=== PATIENT | female | born 1930 | race Caucasian/White ===

== ENCOUNTER 2017-12-01 11:31 | Inpatient (IN) | payer MEDICARE ==
[~2017-12-01] VITALS: Ht 162.6 cm; Wt 49.9 kg
[~2017-12-01 11:31] MED LIST: BETIMOL5 M1 OU; CEFTIN250 MG/5 M PO; FLAGYL250 MG PO; HYDROCHLOROTHIA50 MG PO; KLOR-CON M2020 MEQ PO; MAXZIDE 37.5 M1 EACH PO; NEXIUM40 MG PO; ZETIA10 MG PO
--- OUTSIDE RECORDS SUMMARY | 2017-12-01 11:32 | XMS REPORT ---
Author [facility] Address Unknown Phone Unavailable Care Team Providers Care Vibration Engineer Name Role Phone TAWANNA HDZ Unavailable Unavailable ARIANA CABRERA Unavailable Unavailable Problems This patient has no known problems. Allergies, Adverse Reactions, Alerts This patient has no known allergies or adverse reactions. Medications This patient has no known medications. Results Test Description Test Time Test Comments Text Results Atomic Results Result Comments CHEST 2 VIEWS [place] [address] Patient Name: MIRELLA FINLEY MR #: [id number] : 1930 Age/Sex: 86/F Req #: [id number] [facility] Physician: Ordered by: TAWANNA HDZ MD Report #: [id number] Location: ER Room/Bed: Procedure: [id number] DX/CHEST 2 VIEWS Exam Date: Exam Time: REPORT STATUS: Signed EXAMINATION: Chest, CHEST 2 VIEWS INDICATION : Vomiting COMPARISON: Portable chest 05/10/2017 FINDINGS: LINES: None. Heart: Normal cardiac silhouette. Vascular: The pulmonary vasculature is within normal limits. Atherosclerotic calcifications of the aortic arch. Mediastinum: No mediastinal, hilar, or axillary mass or lymphadenopathy. Lungs: No parenchymal mass. No focal consolidation. Pleura: No pleural effusion. No pneumothorax. Bones: No acute osseous abnormality. Degenerative changes of the thoracic spine. Soft tissues: Normal. Impression: No acute radiographic abnormality. Signed by: Dr. Mercy Lazcano M.D. on 05/25/2017 1:00 PM Dictated By: MERCY LAZCANO MD 1300 COPY TO: TAWANNA HDZ MD CHEST SINGLE (PORTABLE) [place] [address] Patient Name: MIRELLA FINLEY MR #: [id number] : 1930 Age/Sex: 86/F Req #: [id number] Adm Physician: Ordered by: TAWANNA HDZ MD Report #: [id number] Location: ER Room/Bed: Procedure: [id number] DX/CHEST SINGLE (PORTABLE) Exam Date: 05/10/17 Exam Time: 1010 REPORT STATUS: Signed PROCEDURE: CHEST SINGLE (PORTABLE) TECHNIQUE: Portable AP chest INDICATION: Weakness COMPARISON: None. FINDINGS: The lungs are symmetrically hyperinflated, but otherwise clear. No pleural effusions. Normal heart size. Index skeleton. CONCLUSION: Hyperinflation suspicious for air trapping from COPD. Otherwise, no acute abnormality. Dictated by: Sammie Goodson M.D. on 05/10/2017 at 10:35 Electronically approved by: Sammie Goodson M.D. on 05/10/2017 at 10:35 Dictated By: SAMMIE GOODSON MD 1035 Transcribed By: MIRTHA on 05/10/17 1035 COPY TO: TAWANNA HDZ MD CT ABDOMEN/PELVIS WO [place] [address] Patient Name: MIRELLA FINLEY MR #: [id number] : 1930 Age/Sex: 86/F [facility] #: [id number] Req #: [id number] Adm Physician: Ordered by: ARIANA CABRERA MD Report #: [id number] Location: ER Room/Bed: Procedure: [id number] CT/CT ABDOMEN/PELVIS WO Exam Date: 05/02/17 Exam Time: 1825 REPORT STATUS: Signed EXAMINATION: CT of the abdomen and pelvis without contrast. TECHNIQUE: Spiral CT images of the abdomen and pelvis were performed from the lung bases to the lesser trochanters. No intravenous contrast was given per physician's request. Dilute Gastrografin was given as oral contrast. Coronal and sagittal reformatted images were obtained. COMPARISON: None. CLINICAL HISTORY:Constipation, abdominal pain, left lower quadrant, vomiting DISCUSSION: ABSENCE OF INTRAVENOUS CONTRAST DECREASES SENSITIVITY FOR DETECTION OF FOCAL LESIONS AND VASCULAR PATHOLOGY. ABDOMEN/PELVIS: LOWER THORAX: Lung bases are clear. HEPATOBILIARY: No focal hepatic lesions. No intra or extrahepatic biliary ductal dilation. GALLBLADDER: Cholecystectomy clips. SPLEEN: No splenomegaly. PANCREAS: No focal masses or ductal dilatation. ADRENALS: No adrenal nodules. KIDNEYS/URETERS: No hydronephrosis, stones, or solid mass lesions. PELVIC ORGANS/BLADDER: Marked distention of the bladder, with the bladder dome above the umbilicus. No focal lesion or wall thickening. Uterus is atrophic. No adnexal masses. PERITONEUM/ RETROPERITONEUM: Questionable trace free fluid in the pelvic cul-de-sac (for example series 2, image 66). LYMPH NODES: No intra-abdominal, retroperitoneal, pelvic or inguinal lymphadenopathy. VESSELS: Atherosclerotic calcification of the abdominal aorta and iliac vessels. GI TRACT: Scattered diverticula in the distal descending and sigmoid colon. There is an approximately 5 cm segment of the mid to distal sigmoid colon, which shows mild surrounding fat stranding (for example series 2, images 48-51 and coronal image 51) with presence of a prominent diverticulum. No foci of extraluminal air or adjacent well-defined fluid collections. This segment abuts the posterior aspect of the bladder The rest of the bowel shows no dilation , wall thickening or obstruction. BONES AND SOFT TISSUES: No bony lytic lesions. Mild osteopenia. Soft tissues are grossly unremarkable. IMPRESSION: 1. Findings consistent with mid to distal sigmoid diverticulitis , in the appropriate clinical setting. No evidence of perforation or adjacent abscess formation. 2. Marked distention of the bladder, with the bladder dome above the umbilicus, likely reflecting bladder outlet obstruction. 3. Questionable trace free fluid in the pelvic cul-de-sac, likely reactive from diverticulitis. Signed by: Dr. Janki Cole M.D. on 05/02/2017 7: 38 PM Dictated By: JANKI COLE MD 37 Transcribed By: MARY on 05/02/171937 COPY TO: ARIANA CABRERA MD
[2017-12-01] MEDS ORDERED: MORPHINE SULFATE 2 MG/ML SYR IV STA (11:38)
[2017-12-01] MEDS ORDERED: ONDANSETRON HCL INJ 2 MG/ML VIAL IV STA ×2 (11:38→17:44)
[2017-12-01] MEDS ORDERED: SODIUM CHLORIDE 0.9% 1000ML 1,000 ML IV STA (11:38)
[2017-12-01] MEDS ORDERED: DIATRIZOATE MEGL/DIATRIZOA SOD 30 ML BTL PO ONE (11:58)
--- NOTE | 2017-12-01 12:14 | Diagnostic Imaging Report ---
EXAMINATION: CHEST SINGLE (PORTABLE) INDICATION: Abdominal pain. \S\ERMD ORDER \S\[id number] \S\1150 \S\Y COMPARISON: 05/25/2017 FINDINGS: AP view TUBES and LINES: None. LUNGS: Slight rotation. Lungs are well inflated. Lungs are clear. There is no evidence of pneumonia or pulmonary edema. PLEURA: No pleural effusion or pneumothorax. HEART AND MEDIASTINUM: The cardiomediastinal silhouette is unremarkable. BONES AND SOFT TISSUES: No acute osseous lesion. Soft tissues are unremarkable. UPPER ABDOMEN: No free air under the diaphragm. IMPRESSION: No acute thoracic abnormality. Signed by: Dr. Navin Valentine MD on 12/01/2017 12:10 PM
[2017-12-01 12:42] LABS: BASOPHILS % 0.3 % (0.0-1.0); EOSINOPHILS # (AUTO) 0.1 (0.0-0.4); EOSINOPHILS % 0.7 % (0.0-6.0); HEMATOCRIT 38.3 % (34.2-44.1); HEMOGLOBIN 13.1 g/dL (12.0-16.0); LYMPHOCYTES % 18.8 % (18.0-39.1); MEAN CORPUSCULAR HEMOGLOBIN 28.7 pg (28-32); MEAN CORPUSCULAR HGB CONC 34.2 g/dL (31-35); MONOCYTES # (AUTO) 0.7 (0.2-0.8); MONOCYTES % 6.3 % (4.4-11.3); NEUTROPHILS # (AUTO) 7.7 (2.1-6.9); NEUTROPHILS % 73.4 % (38.7-80.0); PLATELET COUNT 327 x10e3/uL (140-360); RED BLOOD COUNT 4.56 x10e6/uL (3.6-5.1); RED CELL DISTRIBUTION WIDTH 12.7 % (11.7-14.4)
[2017-12-01 12:46] LABS: INR 1.11; PROTHROMBIN TIME 13.5 seconds (11.9-14.5)
[2017-12-01 12:47] LABS: PARTIAL THROMBOPLASTIN TIME 32.3 seconds (23.8-35.5)
[2017-12-01 12:51] LABS: BILIRUBIN,URINE NEGATIVE (NEGATIVE); KETONES,URINE NEGATIVE (NEGATIVE); LEUKOCYTE ESTERASE ,URINE 2+ (NEGATIVE); NITRITE,URINE NEGATIVE (NEGATIVE); PROTEIN,URINE DIPSTICK NEGATIVE (NEGATIVE); URINE UROBILINOGEN 0.2 mg/dL (0.2 - 1)
[2017-12-01 12:52] LABS: CLARITY,URINE HAZY (CLEAR); COLOR,URINE YELLOW (YELLOW)
[2017-12-01 12:54] LABS: BACTERIA,URINE FEW /HPF; EPITHELIAL CELLS,URINE FEW /LPF
[2017-12-01 12:56] LABS: ALBUMIN 3.8 g/dL (3.5-5.0); ALBUMIN/GLOBULIN RATIO 0.9 (0.8-2.0); ANION GAP 15.2 mmol/L (8-16); CALCIUM 10.3 mg/dL (8.4-10.2); CREATININE, SERUM 1.02 mg/dL (0.57-1.11); POTASSIUM 4.2 mmol/L (3.5-5.1)
[2017-12-01 13:03] LABS: CREATINE KINASE MB 0.8 ng/mL (0-5.0)
[2017-12-01] MEDS ORDERED: CEFTRIAXONE SOD 1 GM VIAL IV SCH (13:30)
[2017-12-01 14:00] LABS: MAGNESIUM 1.6 MG/DL (1.3-2.1)
--- NOTE | 2017-12-01 14:52 | Diagnostic Imaging Report ---
EXAM: CT Abdomen and Pelvis WITH contrast INDICATION: \S\r/o divertic sbo etc.... \[id number] \S\[id number] COMPARISON: CT dated 05/02/2017 TECHNIQUE: Abdomen and pelvis were scanned utilizing a multidetector helical scanner from the lung base to the pubic symphysis after administration of IV contrast. Coronal and sagittal reformations were obtained. Routine protocol was performed. Scan was performed when during portal venous phase. IV CONTRAST: 100 mL of Isovue-370 ORAL CONTRAST: Gastroview COMPLICATIONS: None RADIATION DOSE: Total DLP: 180.73 mGy*cm Estimated effective dose: (DLP x 0.015 x size factor) mSv CTDIvol has been reviewed. It is below the limits set by the Radiation Protocol Committee (RPC). FINDINGS: LINES and TUBES: Johnson catheter. LOWER THORAX: Unremarkable HEPATOBILIARY: No focal hepatic lesions. Mild biliary dilatation, likely due to postcholecystectomy reservoir effects. GALLBLADDER: Surgically absent. SPLEEN: No splenomegaly. PANCREAS: No focal masses or ductal dilatation. ADRENALS: No adrenal nodules KIDNEYS/URETERS: Kidneys enhance symmetrically. No hydronephrosis. No cystic or solid mass lesions. No stones. GI TRACT: Colonic diverticulosis with wall thickening and inflammation of sigmoid colon in left lower quadrant, representing diverticulitis. Inflamed segment of sigmoid colon abuts the uterine fundus. No evidence of bowel obstruction. Appendix is not visualized. PELVIC ORGANS/BLADDER: Bladder is decompressed by a Johnson catheter in place. Uterus and adnexa are unremarkable on CT assessment. LYMPH NODES: No lymphadenopathy. VESSELS: Mild to moderate aortoiliac atherosclerotic disease. PERITONEUM / RETROPERITONEUM: No free air or fluid. BONES: Unremarkable. SOFT TISSUES: Unremarkable. IMPRESSION: 1. Colonic diverticulitis in left lower quadrant. No definite evidence of microperforation or abscess formation. The inflamed loop of colon abuts the uterine fundus. Signed by: Dr. Navin Valentine MD on 12/01/2017 2:48 PM
[2017-12-01] MEDS ORDERED: LEVOFLOXACIN 750MG/D5W 150ML 150 ML IV SCH (14:55)
[2017-12-01] MEDS ORDERED: METRONIDAZOLE 500MG/NS 100ML 100 ML IV SCH (14:55)
[2017-12-01] MEDS ORDERED: MORPHINE SULFATE 2 MG/ML SYR IV PRN (15:30)
[2017-12-01] MEDS ORDERED: LEVOFLOXACIN 500MG/D5W 100ML IV SCH (15:30)
[2017-12-01] MEDS: LEVOFLOXACIN 500MG/D5W 100ML 100 ML IV SCH (16:55)
[2017-12-01] MEDS: ONDANSETRON HCL INJ 2 MG/ML VIAL IV PRN ×2 (16:55→17:59)
[2017-12-01] MEDS: METRONIDAZOLE 500MG/NS 100ML 100 ML IV SCH ×2 (17:08→23:54)
[2017-12-01] MEDS: D5.45%NS/KCL 20MEQ 1,000 ML IV SCH (17:57)
[2017-12-01] MEDS ORDERED: METRONIDAZOLE 500MG/NS 100ML IV SCH (18:00)
[2017-12-01] MEDS ORDERED: SODIUM CHLORIDE 0.9% 50ML 50 ML ONE (18:07)
[2017-12-01] MEDS ORDERED: IOPAMIDOL 370 MG/ML 200 ML INFUS..BTL INJ ONE (18:08)
[2017-12-01] MEDS ORDERED: PROMETHAZINE 12.5MG/ NACL 0.9% 12.5 MG/50 ML BAG IV PRN (18:30)
[2017-12-01 18:52] VITALS: BP 163/70
[2017-12-01 20:00] VITALS: BP 133/62
[2017-12-02] VITALS (11 sets, daily range): BP systolic 115–163; BP diastolic 57–73
[2017-12-02] MEDS ORDERED: LISINOPRIL10 MG PO (01:19)
[2017-12-02] MEDS ORDERED: POTASSIUM40 MEQ/15 PO (01:22)
[2017-12-02] MEDS: METRONIDAZOLE 500MG/NS 100ML 100 ML IV SCH ×4 (05:38→23:45)
[2017-12-02 06:51] LABS: BASOPHILS % 0.1 % (0.0-1.0); EOSINOPHILS % 0.6 % (0.0-6.0); HEMATOCRIT 31.9 % (34.2-44.1); HEMOGLOBIN 11.2 g/dL (12.0-16.0); LYMPHOCYTES # (AUTO) 1.8 (1.0-3.2); MEAN CORPUSCULAR HEMOGLOBIN 29.6 pg (28-32); MEAN CORPUSCULAR HGB CONC 35.1 g/dL (31-35); MEAN CORPUSCULAR VOLUME 84.4 fL (81-99); MONOCYTES # (AUTO) 0.5 (0.2-0.8); MONOCYTES % 7.4 % (4.4-11.3); NEUTROPHILS # (AUTO) 4.5 (2.1-6.9); NEUTROPHILS % 65.5 % (38.7-80.0); PLATELET COUNT 258 x10e3/uL (140-360); RED BLOOD COUNT 3.78 x10e6/uL (3.6-5.1); RED CELL DISTRIBUTION WIDTH 12.7 % (11.7-14.4)
[2017-12-02 07:24] LABS: ANION GAP 12.7 mmol/L (8-16); CALCIUM 9.6 mg/dL (8.4-10.2); CREATININE, SERUM 0.92 mg/dL (0.57-1.11); POTASSIUM 3.7 mmol/L (3.5-5.1)
[2017-12-02] MEDS: D5.45%NS/KCL 20MEQ 1,000 ML IV SCH ×2 (12:04→20:00)
[2017-12-02] MEDS: LEVOFLOXACIN 500MG/D5W 100ML 100 ML IV SCH (15:16)
[2017-12-02] MEDS ORDERED: NON-FORMULARY MEDICATION (Timolol (Betimol) 1 DROP) OU SCH (17:00)
[2017-12-02] MEDS: TIMOLOL MALEATE(OPTHALMIC) 1 EA BTL OU SCH (17:13)
[2017-12-02] MEDS ORDERED: DIPHENHYDRAMINE HCL 25 MG CAP PO PRN (19:45)
[2017-12-02] MEDS: TRIAMTERENE/HCTZ 37.5-25 MG TAB PO SCH (21:44)
[2017-12-02] MEDS: LISINOPRIL 10 MG TAB PO SCH (21:44)
[2017-12-03] VITALS (8 sets, daily range): BP systolic 143–181; BP diastolic 63–77
[2017-12-03] MEDS ORDERED: CLONIDINE HCL 0.1 MG TAB PO PRN (05:00)
[2017-12-03] MEDS: METRONIDAZOLE 500MG/NS 100ML 100 ML IV SCH ×4 (05:30→23:53)
[2017-12-03] MEDS: CEFTRIAXONE SOD 1 GM VIAL IV SCH (06:11)
[2017-12-03] MEDS ORDERED: LISINOPRIL 10 MG TAB PO SCH (09:00)
[2017-12-03] MEDS ORDERED: POTASSIUM CHLORIDE PO SCH (09:00)
[2017-12-03] MEDS ORDERED: TRIAMTERENE/HCTZ 37.5-25 MG TAB PO SCH (09:00)
[2017-12-03] MEDS ORDERED: SODIUM CHLORIDE 0.9% 1000ML 1,000 ML IV SCH ×2 (09:10→09:15)
[2017-12-03] MEDS: TIMOLOL MALEATE(OPTHALMIC) 1 EA BTL OU SCH ×2 (09:31→17:24)
[2017-12-03] MEDS: POTASSIUM CHLORIDE 20MEQ/15ML UDC PO SCH (09:31)
[2017-12-03] MEDS: TRIAMTERENE/HCTZ 37.5-25 MG TAB PO SCH (09:31)
[2017-12-03] MEDS: PANTOPRAZOLE SOD 40 MG TABEC PO SCH (09:32)
[2017-12-03] MEDS: LISINOPRIL 10 MG TAB PO SCH (09:32)
[2017-12-03] MEDS: EZETIMIBE 10 MG TAB PO SCH (09:32)
[2017-12-03] MEDS: ONDANSETRON HCL INJ 2 MG/ML VIAL IV PRN (19:36)
[2017-12-03] MEDS: D5.45%NS/KCL 20MEQ 1,000 ML IV SCH (20:00)
[2017-12-04] VITALS (7 sets, daily range): BP systolic 126–168; BP diastolic 59–71
[2017-12-04] MEDS: CEFTRIAXONE SOD 1 GM VIAL IV SCH (05:35)
[2017-12-04] MEDS: METRONIDAZOLE 500MG/NS 100ML 100 ML IV SCH ×3 (05:36→18:00)
[2017-12-04 07:12] LABS: BASOPHILS % 0.3 % (0.0-1.0); EOSINOPHILS # (AUTO) 0.1 (0.0-0.4); EOSINOPHILS % 1.5 % (0.0-6.0); HEMATOCRIT 34.8 % (34.2-44.1); HEMOGLOBIN 12.1 g/dL (12.0-16.0); LYMPHOCYTES # (AUTO) 2.1 (1.0-3.2); LYMPHOCYTES % 28.2 % (18.0-39.1); MEAN CORPUSCULAR HEMOGLOBIN 29.2 pg (28-32); MEAN CORPUSCULAR HGB CONC 34.8 g/dL (31-35); MEAN CORPUSCULAR VOLUME 83.9 fL (81-99); MONOCYTES # (AUTO) 0.6 (0.2-0.8); MONOCYTES % 7.9 % (4.4-11.3); NEUTROPHILS # (AUTO) 4.6 (2.1-6.9); NEUTROPHILS % 61.4 % (38.7-80.0); PLATELET COUNT 272 x10e3/uL (140-360); RED BLOOD COUNT 4.15 x10e6/uL (3.6-5.1); RED CELL DISTRIBUTION WIDTH 12.7 % (11.7-14.4)
[2017-12-04 07:40] LABS: ALANINE AMINOTRANSFERASE 99 IU/L (0-55); ALBUMIN 3.1 g/dL (3.5-5.0); ALKALINE PHOSPHATASE 144 IU/L (40-150); ANION GAP 11.4 mmol/L (8-16); BLOOD UREA NITROGEN 8 mg/dL (7-26); BUN/CREATININE RATIO 9 (6-25); CALCIUM 9.4 mg/dL (8.4-10.2); CARBON DIOXIDE 30 mmol/L (22-29); CHLORIDE 95 mmol/L (98-107); CREATININE, SERUM 0.87 mg/dL (0.57-1.11); EST GLOMERULAR FILTRATION RATE > 60 ML/MIN (60-); GLUCOSE 104 mg/dL (74-118); POTASSIUM 4.4 mmol/L (3.5-5.1); SODIUM 132 mmol/L (136-145)
--- NOTE | 2017-12-04 08:50 | Consultation ---
DATE OF CONSULTATION: December 03, 2017 CARDIOLOGY CONSULTATION REASON FOR CONSULTATION: Dizziness and orthostatic hypotension. HPI: This is a pleasant 87-year-old female that presented with lower abdominal pain. According to the patient, she had lower abdominal pain times 1 week that has been going on that she came in for evaluation. She has a history of neurogenic bladder and chronic UTI. She uses Johnson catheter continuously. Yesterday, she stated she got up to use the bathroom, and when she got back to her bed, she was so dizzy, felt like so weird like she was about to . Her blood pressure was checked, and it dropped in the 80s. Cardiology was consulted. She denies any palpitation, any shortness of breath, any diaphoresis, or headache. Troponin was negative. EKG showed normal sinus rhythm with no ST abnormalities. PAST MEDICAL HISTORY: Hypertension, UTIs, GERD, glaucoma, diverticulitis, neurogenic bladder, and hyperlipidemia. PAST SURGICAL HISTORY: Appendectomy, cholecystectomy, and colon surgery to remove polyps. FAMILY HISTORY: Noncontributory. SOCIAL HISTORY: No smoking. No drinking. She lives at home with her son, [id number] and grandchildren. MEDICATIONS: She was on Nexium, Zetia, lisinopril, potassium, Betimol, Maxzide. ALLERGIES: SHE IS ALLERGIC TO NAPROXEN, SULFA AND PENICILLIN. REVIEW OF SYSTEMS: Negative except as mentioned above. PHYSICAL EXAMINATION VITAL SIGNS: Temperature 97, heart rate 85, blood pressure 142/65, respirations 17, oxygen saturation 98% on room air. GENERAL: She is awake, alert and oriented times 3. HEENT: Mucous membrane moist. NECK: Supple. LUNGS: Bilateral clear to auscultation. CARDIOVASCULAR: S1 and S2 present. ABDOMEN: Soft. NEUROLOGICAL: Intact. She is able to move all extremities. EXTREMITIES: Bilateral lower extremities with no edema. LABS: Sodium 131, potassium 3.7, chloride 93, CO2 29, BUN 9, creatinine 0.92, glucose 89. White blood cells 7.55, hemoglobin 12.1, hematocrit 34.8, and platelet 272,000. PT 13.5, PTT 32.3 and INR 1.11. IMPRESSION 1. Dizziness. 2. Hypertension. 3. Diverticulitis. 4. Hyponatremia. 5. Urinary tract infection. 6. Hyperlipidemia. 7. Possible orthostatic hypotension. ASSESSMENT AND PLAN: Will get an echo to assess the LV and valve function. Will get bilateral carotid Doppler to rule out any occlusion. Check orthostatic BP sitting, standing and laying down. It looks like she had a vagal reaction from position change. Will continue her home medications. Further cardiac workup pending clinical course. Thank you for this consultation. DICTATED BY ATILIO CAI NP Job#: [id number] JENNIFER
[2017-12-04] MEDS: TIMOLOL MALEATE(OPTHALMIC) 1 EA BTL OU SCH ×2 (09:00→17:59)
[2017-12-04] MEDS: TRIAMTERENE/HCTZ 37.5-25 MG TAB PO SCH (10:22)
[2017-12-04] MEDS: POTASSIUM CHLORIDE 20MEQ/15ML UDC PO SCH (10:22)
[2017-12-04] MEDS: PANTOPRAZOLE SOD 40 MG TABEC PO SCH (10:22)
[2017-12-04] MEDS: LISINOPRIL 10 MG TAB PO SCH (10:22)
[2017-12-04] MEDS: EZETIMIBE 10 MG TAB PO SCH (10:22)
[2017-12-04] MEDS: D5.45%NS/KCL 20MEQ 1,000 ML IV SCH (23:23)
[2017-12-05] VITALS: BP_SYST 143; BP_SYST 152; BP_DIAS 64; BP_DIAS 69
[2017-12-05] MEDS: METRONIDAZOLE 500MG/NS 100ML 100 ML IV SCH ×4 (01:30→17:33)
[2017-12-05 04:00] VITALS: BP 155/67
[2017-12-05] MEDS: CEFTRIAXONE SOD 1 GM VIAL IV SCH (06:11)
[2017-12-05] MEDS: POTASSIUM CHLORIDE 20MEQ/15ML UDC PO SCH (09:24)
[2017-12-05] MEDS: TIMOLOL MALEATE(OPTHALMIC) 1 EA BTL OU SCH ×2 (09:24→17:33)
[2017-12-05] MEDS: TRIAMTERENE/HCTZ 37.5-25 MG TAB PO SCH (09:24)
[2017-12-05] MEDS: LISINOPRIL 10 MG TAB PO SCH (09:24)
[2017-12-05] MEDS: PANTOPRAZOLE SOD 40 MG TABEC PO SCH (09:24)
[2017-12-05] MEDS: EZETIMIBE 10 MG TAB PO SCH (09:24)
[2017-12-05 10:05] VITALS: BP 147/65
[2017-12-05 13:32] VITALS: BP 131/60
[2017-12-05 17:04] VITALS: BP 148/65
[2017-12-05] MEDS: D5.45%NS/KCL 20MEQ 1,000 ML IV SCH (19:23)
[2017-12-05 20:00] VITALS: BP 120/56
[2017-12-06] VITALS: BP 131/63
[2017-12-06] MEDS: METRONIDAZOLE 500MG/NS 100ML 100 ML IV SCH ×2 (00:21→06:00)
[2017-12-06 04:00] VITALS: BP 162/72
[2017-12-06] MEDS: CEFTRIAXONE SOD 1 GM VIAL IV SCH (06:00)
[2017-12-06 07:30] VITALS: BP 162/72
[2017-12-06 08:07] VITALS: BP 156/69
[2017-12-06] MEDS: EZETIMIBE 10 MG TAB PO SCH (09:22)
[2017-12-06] MEDS: TRIAMTERENE/HCTZ 37.5-25 MG TAB PO SCH (09:22)
[2017-12-06] MEDS: POTASSIUM CHLORIDE 20MEQ/15ML UDC PO SCH (09:22)
[2017-12-06] MEDS: LISINOPRIL 10 MG TAB PO SCH (09:22)
[2017-12-06] MEDS: PANTOPRAZOLE SOD 40 MG TABEC PO SCH (09:22)
[2017-12-06] MEDS: ONDANSETRON HCL INJ 2 MG/ML VIAL IV PRN (10:13)
[2017-12-06] MEDS: TIMOLOL MALEATE(OPTHALMIC) 1 EA BTL OU SCH (10:44)
--- NOTE | 2018-01-18 01:35 | Discharge Summary ---
DISCHARGE DIAGNOSES: 1. Urinary tract infection. 2. Diverticulitis. 3. Hypertension. HISTORY OF PRESENT ILLNESS AND HOSPITAL COURSE: See hospital chart for full details. Patient is a lady who is well known to me, presented with left lower quadrant abdominal pain. She was found to have UTI and diverticulitis. Urine culture grew out E. coli. Each day patient made significant improvement. She was seen by her haulage engine operator because she did have some episodes of orthostatic hypotension, which was resolved with IV fluids, with holding of some of her medications. Her EF was 55%. Carotids were negative for any significant stenosis. At the time of discharge, patient was feeling really good. She wanted to go home. She was no longer orthostatic and she was switched to p.o. Keflex for her urinary tract infection as well as p.o. Flagyl for diverticulitis, and she will follow up in 1 to 2 weeks with me. Please see hospital chart for full details. JAZLYN MELGOZA MD Job#: [id number]
== END 2017-12-06 10:48 | disposition home or self-care (01) | DRG 392 ==
LOC: ER 11:31 → ERHOLD 16:24 → MED/SURG 18:21
PROVIDERS: ADMIT Internal Medicine; ATTEND Internal Medicine
DX: K57.92 Diverticulitis of intestine, part unspecified, without perforation or abscess without bleeding (principal); N39.0 Urinary tract infection, site not specified; E87.1 Hypo-osmolality and hyponatremia; E86.0 Dehydration; B96.20 Unspecified Escherichia coli [E. coli] as the cause of diseases classified elsewhere; K21.9 Gastro-esophageal reflux disease without esophagitis; K44.9 Diaphragmatic hernia without obstruction or gangrene; I10 Essential (primary) hypertension; N31.9 Neuromuscular dysfunction of bladder, unspecified; I95.1 Orthostatic hypotension
CPT/HCPCS: 36415; 71045; 74177; 80048; 80053; 81001; 82550; 82553; 83735; 84484; 85025; 85610; 85730; 87086; 87186; 87493; 93005; 93306; 93880; 97139; 99284; J0696; J1956; J2270; J2405; J2550; J7030; Q9967

== ENCOUNTER 2018-01-10 10:40 | Inpatient (IN) | payer MEDICARE ==
[~2018-01-10] VITALS: Ht 162.6 cm; Wt 49.9 kg
[~2018-01-10 10:40] MED LIST changes: +LISINOPRIL10 MG PO; +POTASSIUM40 MEQ/15 PO
--- OUTSIDE RECORDS SUMMARY | 2018-01-10 10:43 | XMS REPORT | Continuity of Care Document ---
Author Author 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 No 12/02/17 12:55am If yes, is advance directive on file with [facility]? Yes 12/02/17 12:55am If not on file with [facility] will patient provide a copy? Yes 12/02/17 12:55am Do you have a Directive to Physician? No 12/01/17 3:41pm Do you have a Medical Power of Admissions Consultant? No 03/18/18 3:41pm Do you have an out of hospital Do Not Resuscitate Order? No 12/01/17 3:41pm Do you have any special needs we should be aware of? No 12/01/17 3:41pm Do you have a support person here with you today? Yes 12/01/17 3:41pm Did patient receive Notice of Privacy Practices? Yes 12/01/17 3:41pm Did patient receive patient rights and responsibilities? Yes 12/01/17 3:41pm Problems Medical Problem Onset Date Status Dehydration Unknown Diverticulitis Unknown Hypokalemia Unknown Urinary retention Unknown Medications Current Home Medications Medication Dose Units Route Directions Days Qty Instructions Start Date Esomeprazole Magnesium (Nexium) 40 Mg Capsule.dr 40 Mg Oral Daily Ezetimibe (Zetia) 10 Mg Tablet 10 Mg Oral Daily Lisinopril 10 Mg Tablet 5 Mg Oral Daily 30 Tab Potassium Chloride 40 Meq/15 Ml Liquid 15 Ml Oral Daily Timolol (Betimol) 5 Ml Drops 1 Drop Each Eye Twice A Day Triamterene/Hydrochlorothiazid (Maxzide 37.5 Mg-25 Mg Tablet) 1 Each Tablet 37.5 Mg Oral Daily 30 Past Home Medications Medication Directions Ordered Status Cefuroxime Axetil (Ceftin) 250 Mg/5 Ml Susp.recon, 250 Mg Oral Twice A Day Discontinued Hydrochlorothiazide 50 Mg Tablet, 50 Mg Oral Daily Discontinued Metronidazole (Flagyl) 250 Mg Tablet, 500 Mg Oral Three Times A Day Discontinued Social History Social History Problem Response Recorded Date/Time Onset Date Status Hx Psychiatric Problems No 12/02/2017 12:55am Not Applicable Not Applicable Hx Eating Disorder No 12/02/2017 12:55am Not Applicable Not Applicable Hx Substance Use Disorder No 12/02/2017 12:55am Not Applicable Not Applicable Hx Depression No 12/02/2017 12:55am Not Applicable Not Applicable Hx Alcohol Use No 12/02/2017 12:55am Not Applicable Not Applicable Hx Substance Use Treatment No 12/02/2017 12:55am Not Applicable Not Applicable Hx Physical Abuse No 12/02/2017 12:55am Not Applicable Not Applicable Smoking Status Start Date Stop Date Never Smoker Hospital Discharge Instructions No hospital discharge instruction information available. Plan of Care Discharge Date 12/06/17 10:48am Disposition HOME, SELF-CARE Instructions/Education Provided Diverticulitis Urinary Tract Infection - Women Prescriptions See Medication Section Referrals JAZLYN MELGOZA MD (Internal Medicine) Order Date: 2 Weeks Entered Date: 12/06/2017 9:31am Address: [address] [place] [phone] Additional Instructions/Education follow up in 2 to 3 weeks Functional Status Query Response Date Recorded Assistive Devices Standard Walker December 02, 2017 1:00am Ambulation Ability Independent December 02, 2017 1:00am Toileting Ability Minimum Assistance December 05, 2017 6:46pm Allergies, Adverse Reactions, Alerts Allergen Type Severity Reaction Status Last Updated Sulfa (Sulfonamide Antibiotics) Allergy Unknown STOMACH PROBLEMS Active Codeine Allergy Unknown STOMACH PROBLEMS Active 12/01/17 Levofloxacin Adverse Reaction Mild NUMBING OF LIPS, FACIAL FLUSHING Active 12/03/17 Immunizations No immunization information available. Vital Signs Acute Vital Signs Vital Response Date/Time Temperature (Fahrenheit) 97.0 degrees F (97.6 - 99.5) 12/06/2017 8:07am Pulse Pulse Rate (adult) 87 bpm (60 - 90) 12/06/2017 8:07am Respiratory Rate 18 bpm (12 - 24) 12/06/2017 8:07am Blood Pressure 156/69 mm Hg 12/06/2017 8:07am Height 5 ft 4 in 12/01/2017 11:37am Weight 110 lb 12/01/2017 11:37am Body Mass Index 18.9 kg/m^2 12/02/2017 12:55am Results Laboratory Results Test Name Result Units Flags Reference Collection Date/Time Result Date/ Time Comments Urine Transitional Epithelial Cells RARE H NONE 05/10/2017 9:50am 10:21am Urine Renal Epithelial Cells RARE H NONE 05/10/2017 9:50am 05/10/2017 10:21am White Blood Count 7.55 x10e3/uL 4.8-10.8 12/04/2017 6:55am 12/04/2017 7 :14am Red Blood Count 4.15 x10e6/uL 3.6-5.1 12/04/2017 6:55am 12/04/2017 7: 14am Hemoglobin 12.1 g/dL 12.0-16.0 12/04/2017 6:55am 12/04/2017 7:14am Hematocrit 34.8 % 34.2-44.1 12/04/2017 6:55am 12/04/2017 7:14am Mean Corpuscular Volume 83.9 fL 81-99 12/04/2017 6:55am 12/04/2017 7: 14am Mean Corpuscular Hemoglobin 29.2 pg 28-32 12/04/2017 6:55am 12/04/2017 7:14am Mean Corpuscular Hemoglobin Concent 34.8 g/dL 31-35 12/04/2017 6:55am 12/04/2017 7:14am Red Cell Distribution Width 12.7 % 11.7-14.4 12/04/2017 6:55am 2017 7:14am Platelet Count 272 x10e3/uL 140-360 12/04/2017 6:55am 12/04/2017 7: 14am Neutrophils (%) (Auto) 61.4 % 38.7-80.0 12/04/2017 6:55am 12/04/2017 7: 14am Lymphocytes (%) (Auto) 28.2 % 18.0-39.1 12/04/2017 6:55am 12/04/2017 7: 14am Monocytes (%) (Auto) 7.9 % 4.4-11.3 12/04/2017 6:55am 12/04/2017 7: 14am Eosinophils (%) (Auto) 1.5 % 0.0-6.0 12/04/2017 6:55am 12/04/2017 7: 14am Basophils (%) (Auto) 0.3 % 0.0-1.0 12/04/2017 6:55am 12/04/2017 7:14am IM GRANULOCYTES % 0.7 % 0.0-1.0 12/04/2017 6:55am 12/04/2017 7:14am Neutrophils # (Auto) 4.6 2.1-6.9 12/04/2017 6:55am 12/04/2017 7:14am Lymphocytes # (Auto) 2.1 1.0-3.2 12/04/2017 6:55am 12/04/2017 7:14am Monocytes # (Auto) 0.6 0.2-0.8 12/04/2017 6:55am 12/04/2017 7:14am Eosinophils # (Auto) 0.1 0.0-0.4 12/04/2017 6:55am 12/04/2017 7:14am Basophils # (Auto) 0.0 0.0-0.1 12/04/2017 6:55am 12/04/2017 7:14am Absolute Immature Granulocyte (auto 0.05 x10e3/uL 0-0.1 12/04/2017 6: 55am 12/04/2017 7:14am Prothrombin Time 13.5 seconds 11.9-14.5 12/01/2017 12:14pm 12/01/2017 12:47pm Prothromb Time International Ratio 1.11 12/01/2017 12:14pm 2017 12:47pm Oral Anticoagulant Therapy INR Values: 1. Low Intensity Therapy 1.5 - 2.0 2. Moderate Intensity Therapy 2.0 - 3.0 3. High Intensity Therapy(1) 2.5 - 3.5 4. High Intensity Therapy(2) 3.0 - 4.0 5. Panic Value INR > 5.0 Activated Partial Thromboplast Time 32.3 seconds 23.8-35.5 12/01/2017 12 :14pm 12/01/2017 12:48pm Urine Color YELLOW YELLOW 12/01/2017 12:23pm 12/01/2017 12:52pm Urine Clarity HAZY CLEAR 12/01/2017 12:23pm 12/01/2017 12:52pm Urine Specific [place] 1.005 L 1.010-1.025 12/01/2017 12:23pm 2017 12:52pm Urine pH 7 5 - 7 12/01/2017 12:23pm 12/01/2017 12:52pm Urine Leukocyte Esterase 2+ H NEGATIVE 12/01/2017 12:23pm 12/01/2017 12:52pm Urine Nitrite NEGATIVE NEGATIVE 12/01/2017 12:23pm 12/01/2017 12: 52pm Urine Protein NEGATIVE NEGATIVE 12/01/2017 12:23pm 12/01/2017 12: 52pm Urine Glucose (UA) NEGATIVE NEGATIVE 12/01/2017 12:23pm 12/01/2017 12 :52pm Urine Ketones NEGATIVE NEGATIVE 12/01/2017 12:23pm 12/01/2017 12: 52pm Urine Urobilinogen 0.2 mg/dL 0.2 - 1 12/01/2017 12:23pm 12/01/2017 12: 52pm Urine Bilirubin NEGATIVE NEGATIVE 12/01/2017 12:23pm 12/01/2017 12: 52pm Urine Blood 1+ H NEGATIVE 12/01/2017 12:23pm 12/01/2017 12:52pm Urine WBC 6-10 /HPF H 0-5 12/01/2017 12:23pm 12/01/2017 12:54pm Urine RBC 6-10 /HPF H 0-5 12/01/2017 12:23pm 12/01/2017 12:54pm Urine Bacteria FEW /HPF NONE 12/01/2017 12:23pm 12/01/2017 12:54pm Urine Epithelial Cells FEW /LPF NONE 12/01/2017 12:23pm 12/01/2017 12: 54pm Sodium Level 132 mmol/L L 136-145 12/04/2017 6:55am 12/04/2017 7:42am Potassium Level 4.4 mmol/L 3.5-5.1 12/04/2017 6:55am 12/04/2017 7:42am Chloride Level 95 mmol/L L 98-107 12/04/2017 6:55am 12/04/2017 7:42am Carbon Dioxide Level 30 mmol/L H 22-12/04/2017 6:55am 12/04/2017 7: 42am Anion Gap 11.4 mmol/L 8-16 12/04/2017 6:55am 12/04/2017 7:42am Blood Urea Nitrogen 8 mg/dL 7-12/04/2017 6:55am 12/04/2017 7:42am Creatinine 0.87 mg/dL 0.57-1.11 12/04/2017 6:55am 12/04/2017 7:42am BUN/Creatinine Ratio 9 6-12/04/2017 6:55am 12/04/2017 7:42am Estimat Glomerular Filtration Rate > 60 ML/MIN 60- 12/04/2017 6:55am 7:42am Ranges were taken from the National Kidney Disease Education Program and the National Kid[employer] Foundation literature. Reference ranges: 60 or greater: Normal 16-59 (for 3 consecutive months): Chronic kidney disease 15 or less: Kidney failure Glucose Level 104 mg/dL 74-118 12/04/2017 6:55am 12/04/2017 7:42am Calcium Level 9.4 mg/dL 8.4-10.2 12/04/2017 6:55am 12/04/2017 7:42am Magnesium Level 1.2 MG/DL L 1.3-2.1 12/04/2017 6:55am 12/04/2017 8:22am Total Bilirubin 0.3 mg/dL 0.2-1.2 12/04/2017 6:55am 12/04/2017 7:42am Aspartate Amino Transf (AST/SGOT) 51 IU/L H 5-34 12/04/2017 6:55am 12/04 7:42am Alanine Aminotransferase (ALT/SGPT) 99 IU/L H 0-55 12/04/2017 6:55am 7:42am Total Protein 6.3 g/dL L 6.5-8.1 12/04/2017 6:55am 12/04/2017 7:42am Albumin 3.1 g/dL L 3.5-5.0 12/04/2017 6:55am 12/04/2017 7:42am Globulin 3.2 g/dL 2.3-3.5 12/04/2017 6:55am 12/04/2017 7:42am Albumin/Globulin Ratio 1.0 0.8-2.0 12/04/2017 6:55am 12/04/2017 7: 42am Alkaline Phosphatase 144 IU/L 40-150 12/04/2017 6:55am 12/04/2017 7: 42am Creatine Kinase 37 IU/L 29-168 12/01/2017 12:14pm 12/01/2017 1:23pm Creatine Kinase MB 0.80 ng/mL 0-5.0 12/01/2017 12:14pm 12/01/2017 1: 23pm Troponin I 0.012 ng/mL 0-0.300 12/01/2017 12:14pm 12/01/2017 1:23pm Clostridium Difficile Toxin A & B NEGATIVE NEGATIVE 12/03/2017 5:25pm 12/03/2017 8:50pm Testing on stool aspirate specimens is outside cell room operator claims since specimen type not validated on this assay. 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
[2018-01-10] MEDS ORDERED: NITROFURANTOIN100 MG PO (11:00)
[2018-01-10] MEDS ORDERED: PANTOPRAZOLE 40 MG 10ML VIAL IV STA (11:04)
[2018-01-10] MEDS ORDERED: SODIUM CHLORIDE 0.9% 1000ML 1,000 ML IV STA (11:04)
[2018-01-10] MEDS ORDERED: ONDANSETRON HCL 4 MG ORAL DISINTEGRATING TAB PO ONE ×2 (11:15→14:00)
[2018-01-10 12:32] LABS: BASOPHILS % 0.1 % (0.0-1.0); EOSINOPHILS % 0.1 % (0.0-6.0); HEMATOCRIT 32.4 % (34.2-44.1); HEMOGLOBIN 11.6 g/dL (12.0-16.0); LYMPHOCYTES # (AUTO) 0.4 (1.0-3.2); MEAN CORPUSCULAR HEMOGLOBIN 29.7 pg (28-32); MEAN CORPUSCULAR HGB CONC 35.8 g/dL (31-35); MEAN CORPUSCULAR VOLUME 83.1 fL (81-99); MONOCYTES # (AUTO) 0.3 (0.2-0.8); MONOCYTES % 3.1 % (4.4-11.3); NEUTROPHILS % 91.8 % (38.7-80.0); PLATELET COUNT 281 x10e3/uL (140-360); RED CELL DISTRIBUTION WIDTH 12.5 % (11.7-14.4)
[2018-01-10 12:52] LABS: INR 1.15; PARTIAL THROMBOPLASTIN TIME 20.2 seconds (23.8-35.5); PROTHROMBIN TIME 13.8 seconds (11.9-14.5)
[2018-01-10 12:53] LABS: ALANINE AMINOTRANSFERASE 32 IU/L (0-55); ALBUMIN 3.3 g/dL (3.5-5.0); ALBUMIN/GLOBULIN RATIO 0.9 (0.8-2.0); ALKALINE PHOSPHATASE 71 IU/L (40-150); ANION GAP 15.4 mmol/L (8-16); BLOOD UREA NITROGEN 9 mg/dL (7-26); BUN/CREATININE RATIO 11 (6-25); CALCIUM 9.6 mg/dL (8.4-10.2); CARBON DIOXIDE 30 mmol/L (22-29); CHLORIDE 87 mmol/L (98-107); CREATINE KINASE 26 IU/L (29-168); CREATININE, SERUM 0.81 mg/dL (0.57-1.11); EST GLOMERULAR FILTRATION RATE > 60 ML/MIN (60-); GLUCOSE 135 mg/dL (74-118); MAGNESIUM 1.2 MG/DL (1.3-2.1); POTASSIUM 3.4 mmol/L (3.5-5.1); SODIUM 129 mmol/L (136-145)
--- NOTE | 2018-01-10 13:04 | Diagnostic Imaging Report ---
PROCEDURE: Frontal and lateral views of the chest. COMPARISON: 12/01/2017 INDICATIONS: NAUSEA/VOMITING FINDINGS: Lines/tubes: None. Lungs: The lungs are well inflated and clear. There is no evidence of pneumonia or pulmonary edema. Pleura: There is no pleural effusion or pneumothorax. Heart and mediastinum: The heart and the mediastinum are normal. Bones: No acute bony abnormality. Multilevel degenerative changes of the thoracic spine. IMPRESSION: 1. No acute cardiopulmonary disease. Dictated by: Jd De Leon M.D. on 01/10/2018 at 13:05 Electronically approved by: Jd De Leon M.D. on 01/10/2018 at 13:05
--- NOTE | 2018-01-10 13:07 | Diagnostic Imaging Report ---
PROCEDURE:ABDOMEN COMP INCL UPR OR DECUB INDICATION:Nausea and vomiting COMPARISON:None. FINDINGS: 2 views of the chest (AP supine and AP semierect). Nonobstructive bowel gas pattern. No suspicious calcifications projected over the urinary tract. No free intraperitoneal air. Cholecystectomy clips. Bones and soft tissues are grossly unremarkable. CONCLUSION: Nonobstructive bowel gas pattern. No free intraperitoneal air. Dictated by: Jd De Leon M.D. on 01/10/2018 at 13:08 Electronically approved by: dJ De Leon M.D. on 01/10/2018 at 13:08
[2018-01-10] MEDS ORDERED: MAGNESIUM SULFATE 2GM/50ML 50 ML IV ONE (14:00)
[2018-01-10 14:43] LABS: CLARITY,URINE CLEAR (CLEAR); COLOR,URINE YELLOW (YELLOW)
[2018-01-10 14:44] LABS: BILIRUBIN,URINE NEGATIVE (NEGATIVE); KETONES,URINE NEGATIVE (NEGATIVE); LEUKOCYTE ESTERASE ,URINE TRACE (NEGATIVE); NITRITE,URINE POSITIVE (NEGATIVE); PROTEIN,URINE DIPSTICK NEGATIVE (NEGATIVE); URINE UROBILINOGEN 0.2 mg/dL (0.2 - 1)
[2018-01-10 14:50] LABS: AMORPHOUS SEDIMENT,URINE FEW (FEW); BACTERIA,URINE MODERATE /HPF; RBC,URINE 21-50 /HPF (0-5)
[2018-01-10] MEDS ORDERED: ONDANSETRON HCL 4 MG ORAL DISINTEGRATING TAB PO PRN (15:30)
[2018-01-10] MEDS ORDERED: PROMETHAZINE 12.5MG/ NACL 0.9% 12.5 MG/50 ML BAG IV PRN (15:30)
[2018-01-10] MEDS: CEFTRIAXONE SOD 1 GM VIAL IV SCH (16:00)
[2018-01-10] MEDS: SODIUM CHLORIDE 0.9% 1000ML 1,000 ML IV SCH (16:00)
[2018-01-10 17:50] VITALS: BP 144/62
[2018-01-10 18:23] VITALS: BP 144/62
[2018-01-10 18:36] VITALS: BP 144/62
[2018-01-10 20:00] VITALS: BP 137/62
[2018-01-10] MEDS: ACETAMINOPHEN 325 MG TAB PO PRN (20:10)
[2018-01-10 21:30] VITALS: BP 136/68
[2018-01-10 23:30] VITALS: BP 116/56
[2018-01-10 23:40] LABS: CREATINE KINASE 23 IU/L (29-168)
[2018-01-11 00:10] VITALS: BP 116/56
[2018-01-11] MEDS: SODIUM CHLORIDE 0.9% 1000ML 1,000 ML IV SCH ×3 (00:26→21:43)
[2018-01-11] MEDS: CEFTRIAXONE SOD 1 GM VIAL IV SCH ×2 (03:01→14:30)
[2018-01-11 04:30] VITALS: BP 136/59
[2018-01-11 06:14] LABS: EOSINOPHILS # (AUTO) 0.1 (0.0-0.4); EOSINOPHILS % 1.4 % (0.0-6.0); HEMATOCRIT 28.9 % (34.2-44.1); HEMOGLOBIN 10.1 g/dL (12.0-16.0); LYMPHOCYTES # (AUTO) 0.6 (1.0-3.2); MEAN CORPUSCULAR HEMOGLOBIN 29.4 pg (28-32); MEAN CORPUSCULAR HGB CONC 34.9 g/dL (31-35); MONOCYTES # (AUTO) 0.2 (0.2-0.8); MONOCYTES % 3.4 % (4.4-11.3); NEUTROPHILS # (AUTO) 5.6 (2.1-6.9); NEUTROPHILS % 85.6 % (38.7-80.0); PLATELET COUNT 221 x10e3/uL (140-360); RED BLOOD COUNT 3.44 x10e6/uL (3.6-5.1); RED CELL DISTRIBUTION WIDTH 12.9 % (11.7-14.4)
[2018-01-11 06:34] LABS: ALANINE AMINOTRANSFERASE 25 IU/L (0-55); ALBUMIN 2.5 g/dL (3.5-5.0); ALBUMIN/GLOBULIN RATIO 0.8 (0.8-2.0); ALKALINE PHOSPHATASE 65 IU/L (40-150); ANION GAP 11.8 mmol/L (8-16); BLOOD UREA NITROGEN 10 mg/dL (7-26); BUN/CREATININE RATIO 14 (6-25); CALCIUM 8.3 mg/dL (8.4-10.2); CARBON DIOXIDE 28 mmol/L (22-29); CHLORIDE 94 mmol/L (98-107); CREATININE, SERUM 0.73 mg/dL (0.57-1.11); EST GLOMERULAR FILTRATION RATE > 60 ML/MIN (60-); GLUCOSE 96 mg/dL (74-118); MAGNESIUM 1.4 MG/DL (1.3-2.1); SODIUM 131 mmol/L (136-145)
[2018-01-11 06:35] LABS: CREATINE KINASE 32 IU/L (29-168)
[2018-01-11 06:47] LABS: POTASSIUM 2.8 mmol/L (3.5-5.1)
[2018-01-11] MEDS ORDERED: POTASSIUM CHLORIDE 20 MEQ TAB CR PO STA (06:55)
[2018-01-11] MEDS ORDERED: POTASSIUM CHLORIDE 20MEQ/100ML 200 ML IV ONE (07:00)
[2018-01-11 07:46] VITALS: BP 139/59
[2018-01-11 08:07] LABS: BASOPHILS % 0.1 % (0.0-1.0); EOSINOPHILS # (AUTO) 0.1 (0.0-0.4); EOSINOPHILS % 1.1 % (0.0-6.0); HEMATOCRIT 28.9 % (34.2-44.1); HEMOGLOBIN 10.1 g/dL (12.0-16.0); LYMPHOCYTES # (AUTO) 0.7 (1.0-3.2); LYMPHOCYTES % 10.3 % (18.0-39.1); MEAN CORPUSCULAR HEMOGLOBIN 29.1 pg (28-32); MEAN CORPUSCULAR HGB CONC 34.9 g/dL (31-35); MEAN CORPUSCULAR VOLUME 83.3 fL (81-99); MONOCYTES # (AUTO) 0.3 (0.2-0.8); MONOCYTES % 4.4 % (4.4-11.3); NEUTROPHILS # (AUTO) 5.8 (2.1-6.9); NEUTROPHILS % 83.7 % (38.7-80.0); PLATELET COUNT 221 x10e3/uL (140-360); RED BLOOD COUNT 3.47 x10e6/uL (3.6-5.1); RED CELL DISTRIBUTION WIDTH 12.9 % (11.7-14.4)
[2018-01-11 08:29] LABS: ANION GAP 11.1 mmol/L (8-16); BLOOD UREA NITROGEN 10 mg/dL (7-26); BUN/CREATININE RATIO 14 (6-25); CALCIUM 8.3 mg/dL (8.4-10.2); CARBON DIOXIDE 28 mmol/L (22-29); CHLORIDE 93 mmol/L (98-107); CREATININE, SERUM 0.69 mg/dL (0.57-1.11); EST GLOMERULAR FILTRATION RATE > 60 ML/MIN (60-); GLUCOSE 95 mg/dL (74-118); POTASSIUM 3.1 mmol/L (3.5-5.1); SODIUM 129 mmol/L (136-145)
--- NOTE | 2018-01-11 09:05 | History and Physical ---
An 87-year-old female comes in with nausea and vomiting, intractable in nature. HISTORY OF PRESENT ILLNESS: Ms. Edwige Marr has a history of urinary tract infection. She was given Macrobid, and the patient is intolerable to it. She took 2 pills of it and the patient had intractable nausea and vomiting. She came into the emergency room and was found to have electrolyte imbalance including low magnesium, low potassium and low sodium. The patient came in for dehydration and treatment for the same. PAST MEDICAL HISTORY: History of hypertension, history of chronic UTI, history of hyperlipidemia, history of reflux esophagitis. HOME MEDICATIONS: Omeprazole, Nexium 40 mg, Zetia 10 mg, Macrobid as mentioned above. Potassium, atenolol, and Dyazide daily. PAST SURGICAL HISTORY: History of appendectomy, status post appendix rupture, peritonitis. Also, history of colon resection for colon polyps. SOCIAL HISTORY: No ETOH and no IV drug abuse, no smoking. REVIEW OF SYSTEMS: Negative for chest pain. Some shortness of breath, right now, not there. Nausea and vomiting. No diarrhea. No constipation or rectal bleeding. No hematochezia or hematemesis. No diplopia and no blurry vision. Positive for fatigue. PHYSICAL EXAMINATION VITAL SIGNS: Temperature 100.2 initially. When she came in blood pressure was 136/76, pulse oximetry 97. GENERAL: The patient looks weak. HEENT: Normocephalic, atraumatic. CVS: S1 and S2. Regular rate and rhythm. ABDOMEN: Slightly tender in the epigastric area. Otherwise, normal bowel sounds. Nontender. EXTREMITIES: No cyanosis, clubbing or edema. LABORATORY DATA: Initial white count was 9.8 with a hemoglobin of 11.6, hematocrit 32.4. Neutrophil count was 91.8. Chemistry: Sodium 129, potassium 3.4 and glucose 135, creatinine kinase 26. Coags are normal. Chest x-ray was no acute cardiopulmonary disease. Abdominal x-ray was normal gas pattern, no free intraperitoneal air. ASSESSMENT 1. Nausea and vomiting, intractable. 2. Dehydration. 3. Hyponatremia. 4. Hypomagnesemia. 5. Hypokalemia. PLAN: Hydrate the patient. Take her off the Macrobid. She has been started on Rocephin. UA has been sent. Urine cultures are pending at this time. Will continue to monitor the patient. Further recommendations depending on clinical course. Will also monitor her blood pressures and give blood pressure medicines as needed. Job#: [id number] ENRIQUETA
[2018-01-11] MEDS ORDERED: SODIUM CHLORIDE 0.9% 250ML 250 ML ONE (10:03)
[2018-01-11 11:14] VITALS: BP 136/64
[2018-01-11] MEDS: ACETAMINOPHEN 325 MG TAB PO PRN (11:30)
[2018-01-11 19:05] VITALS: BP 162/71
[2018-01-11 21:52] VITALS: BP 156/70
[2018-01-12] VITALS: BP 158/77
[2018-01-12] MEDS: CEFTRIAXONE SOD 1 GM VIAL IV SCH ×2 (02:58→15:40)
[2018-01-12 05:00] VITALS: BP 171/67
[2018-01-12 08:09] VITALS: BP 154/75
[2018-01-12 19:00] VITALS: BP 173/76
[2018-01-12] MEDS ORDERED: CLONIDINE HCL 0.1 MG TAB PO ONE (20:00)
[2018-01-12 20:30] VITALS: BP 125/56
[2018-01-13] VITALS (9 sets, daily range): BP systolic 14–162; BP diastolic 58–79
[2018-01-13] MEDS: CEFTRIAXONE SOD 1 GM VIAL IV SCH ×2 (03:02→15:30)
[2018-01-13 06:35] LABS: EOSINOPHILS # (AUTO) 0.1 (0.0-0.4); EOSINOPHILS % 2.5 % (0.0-6.0); HEMOGLOBIN 9.5 g/dL (12.0-16.0); LYMPHOCYTES # (AUTO) 1.2 (1.0-3.2); LYMPHOCYTES % 27.2 % (18.0-39.1); MEAN CORPUSCULAR HEMOGLOBIN 29.1 pg (28-32); MEAN CORPUSCULAR HGB CONC 35.2 g/dL (31-35); MEAN CORPUSCULAR VOLUME 82.8 fL (81-99); MONOCYTES # (AUTO) 0.3 (0.2-0.8); MONOCYTES % 7.1 % (4.4-11.3); NEUTROPHILS # (AUTO) 2.8 (2.1-6.9); PLATELET COUNT 229 x10e3/uL (140-360); RED BLOOD COUNT 3.26 x10e6/uL (3.6-5.1); RED CELL DISTRIBUTION WIDTH 12.7 % (11.7-14.4)
[2018-01-13 07:02] LABS: ANION GAP 12.8 mmol/L (8-16); BLOOD UREA NITROGEN 5 mg/dL (7-26); BUN/CREATININE RATIO 8 (6-25); CALCIUM 8.4 mg/dL (8.4-10.2); CARBON DIOXIDE 27 mmol/L (22-29); CHLORIDE 95 mmol/L (98-107); CREATININE, SERUM 0.61 mg/dL (0.57-1.11); EST GLOMERULAR FILTRATION RATE > 60 ML/MIN (60-); GLUCOSE 88 mg/dL (74-118); SODIUM 132 mmol/L (136-145)
[2018-01-13 07:14] LABS: POTASSIUM 2.8 mmol/L (3.5-5.1)
[2018-01-13] MEDS ORDERED: POTASSIUM CHLORIDE 20 MEQ TAB CR PO ONE (08:30)
[2018-01-13] MEDS: PANTOPRAZOLE SOD 40 MG TABEC PO SCH (08:55)
[2018-01-13] MEDS: AMLODIPINE BESYLATE 5 MG TAB PO SCH (08:55)
[2018-01-13] MEDS: EZETIMIBE 10 MG TAB PO SCH (08:55)
[2018-01-13] MEDS: TRIAMTERENE/HCTZ 37.5-25 MG TAB PO SCH (08:55)
[2018-01-13] MEDS: POTASSIUM CHLORIDE 20MEQ/15ML UDC PO SCH (12:15)
[2018-01-13] MEDS ORDERED: TIMOLOL OP SCH (21:00)
[2018-01-14] VITALS (7 sets, daily range): BP systolic 115–154; BP diastolic 54–79
[2018-01-14] MEDS: CEFTRIAXONE SOD 1 GM VIAL IV SCH ×2 (03:02→14:58)
[2018-01-14] MEDS: PANTOPRAZOLE SOD 40 MG TABEC PO SCH (08:32)
[2018-01-14] MEDS: TRIAMTERENE/HCTZ 37.5-25 MG TAB PO SCH (08:32)
[2018-01-14] MEDS: EZETIMIBE 10 MG TAB PO SCH (08:32)
[2018-01-14] MEDS: POTASSIUM CHLORIDE 20MEQ/15ML UDC PO SCH (08:32)
[2018-01-14] MEDS: AMLODIPINE BESYLATE 5 MG TAB PO SCH (08:32)
[2018-01-14] MEDS ORDERED: TIMOLOL OP SCH (09:00)
[2018-01-14] MEDS: TIMOLOL MALEATE 0.5% OPTH DRP 5 ML BTL OU SCH (20:18)
[2018-01-15 00:05] VITALS: BP 128/58
[2018-01-15] MEDS: CEFTRIAXONE SOD 1 GM VIAL IV SCH ×2 (03:34→16:01)
[2018-01-15 05:25] VITALS: BP 134/62
[2018-01-15 06:21] LABS: BASOPHILS % 0.3 % (0.0-1.0); EOSINOPHILS # (AUTO) 0.2 (0.0-0.4); EOSINOPHILS % 2.5 % (0.0-6.0); HEMATOCRIT 32.8 % (34.2-44.1); LYMPHOCYTES % 32.6 % (18.0-39.1); MEAN CORPUSCULAR HGB CONC 35.1 g/dL (31-35); MEAN CORPUSCULAR VOLUME 82.8 fL (81-99); MONOCYTES # (AUTO) 0.5 (0.2-0.8); MONOCYTES % 7.9 % (4.4-11.3); NEUTROPHILS # (AUTO) 3.4 (2.1-6.9); NEUTROPHILS % 55.9 % (38.7-80.0); PLATELET COUNT 320 x10e3/uL (140-360); RED BLOOD COUNT 3.96 x10e6/uL (3.6-5.1); RED CELL DISTRIBUTION WIDTH 12.8 % (11.7-14.4)
[2018-01-15 06:32] LABS: HEMOGLOBIN 11.5 g/dL (12.0-16.0)
[2018-01-15 06:48] LABS: ALANINE AMINOTRANSFERASE 13 IU/L (0-55); ALBUMIN 2.9 g/dL (3.5-5.0); ALBUMIN/GLOBULIN RATIO 0.7 (0.8-2.0); ALKALINE PHOSPHATASE 103 IU/L (40-150); ANION GAP 14.6 mmol/L (8-16); BLOOD UREA NITROGEN 9 mg/dL (7-26); BUN/CREATININE RATIO 12 (6-25); CALCIUM 9.6 mg/dL (8.4-10.2); CARBON DIOXIDE 27 mmol/L (22-29); CHLORIDE 95 mmol/L (98-107); CREATININE, SERUM 0.75 mg/dL (0.57-1.11); EST GLOMERULAR FILTRATION RATE > 60 ML/MIN (60-); GLUCOSE 95 mg/dL (74-118); POTASSIUM 3.6 mmol/L (3.5-5.1); SODIUM 133 mmol/L (136-145)
[2018-01-15 08:00] VITALS: BP 133/64
[2018-01-15] MEDS: AMLODIPINE BESYLATE 5 MG TAB PO SCH (09:00)
[2018-01-15] MEDS: PANTOPRAZOLE SOD 40 MG TABEC PO SCH (09:00)
[2018-01-15] MEDS: TIMOLOL MALEATE 0.5% OPTH DRP 5 ML BTL OU SCH ×2 (09:00→20:06)
[2018-01-15] MEDS: TRIAMTERENE/HCTZ 37.5-25 MG TAB PO SCH (09:00)
[2018-01-15] MEDS: POTASSIUM CHLORIDE 20MEQ/15ML UDC PO SCH (09:01)
[2018-01-15] MEDS: EZETIMIBE 10 MG TAB PO SCH (09:01)
[2018-01-15 12:00] VITALS: BP 122/59
[2018-01-15] MEDS ORDERED: DOCUSATE SODIUM 100 MG CAP PO PRN (14:00)
[2018-01-15 16:00] VITALS: BP 114/55
[2018-01-15 20:00] VITALS: BP 136/63
[2018-01-16] VITALS: BP 148/68
[2018-01-16] MEDS: CEFTRIAXONE SOD 1 GM VIAL IV SCH (03:30)
[2018-01-16 04:00] VITALS: BP 131/60
[2018-01-16] MEDS: TIMOLOL MALEATE 0.5% OPTH DRP 5 ML BTL OU SCH (08:00)
[2018-01-16] MEDS: AMLODIPINE BESYLATE 5 MG TAB PO SCH (09:05)
[2018-01-16] MEDS: TRIAMTERENE/HCTZ 37.5-25 MG TAB PO SCH (09:05)
[2018-01-16] MEDS: PANTOPRAZOLE SOD 40 MG TABEC PO SCH (09:05)
[2018-01-16] MEDS: EZETIMIBE 10 MG TAB PO SCH (09:06)
[2018-01-16] MEDS: POTASSIUM CHLORIDE 20MEQ/15ML UDC PO SCH (09:06)
[2018-01-16] MEDS ORDERED: KEFLEX250 MG PO (09:30)
== END 2018-01-16 10:13 | disposition home or self-care (01) | DRG 690 ==
LOC: ER 10:40 → ERHOLD 15:34 → IMCU 16:52 → OBSVTOIN 01-13 11:32 → MED/SURG2 01-14 16:10
PROVIDERS: ADMIT Internal Medicine; ATTEND Internal Medicine
DX: N39.0 Urinary tract infection, site not specified (principal); E87.1 Hypo-osmolality and hyponatremia; E86.0 Dehydration; K21.9 Gastro-esophageal reflux disease without esophagitis; E83.42 Hypomagnesemia; E87.6 Hypokalemia; E87.8 Other disorders of electrolyte and fluid balance, not elsewhere classified; I10 Essential (primary) hypertension; E78.5 Hyperlipidemia, unspecified; Z87.440 Personal history of urinary (tract) infections; D64.9 Anemia, unspecified; B96.20 Unspecified Escherichia coli [E. coli] as the cause of diseases classified elsewhere
CPT/HCPCS: 36415; 71046; 80048; 80053; 81001; 82550; 82553; 83735; 84484; 85025; 85610; 85730; 87086; 87186; 93005; 99285; G0378; J0696; J3480; J7030; J7050

== ENCOUNTER 2018-02-20 14:03 | Emergency (ER) | payer MEDICARE ==
[~2018-02-20] VITALS: Ht 162.6 cm; Wt 49.9 kg
[~2018-02-20 14:03] MED LIST changes: +KEFLEX250 MG PO; +NITROFURANTOIN100 MG PO
--- OUTSIDE RECORDS SUMMARY | 2018-02-20 14:06 | XMS REPORT | Continuity of Care Document ---
Author Author [facility] Organization [facility] Address [address] [place] [address] Phone Unavailable Care Team Providers Care Dispatcher Chief Coal Slurry Name Role Phone JAZLYN MELGOZA MD PCP Insurance Providers Guarantor Mirella Finley Address [address] [facility] [place] [address] Email [facility] Policy Number [id number] Subscriber's Name Mirella Finley Relationship 18 Self / Same As Patient Group Number [id number] Effective Date 17 Advance Directives Directive Response Recorded Date/Time Does the patient have an advance directive? No 01/10/18 6:24pm If yes, is advance directive on file with [facility]? Yes 01/10/18 6:24pm If not on file with [facility] will patient provide a copy? Yes 01/10/18 6:24pm Do you have a Directive to Physician? No 01/10/18 11:16am Do you have a Medical Power of Novelties Sales Representative? No 01/10/18 11:16am Do you have an out of hospital Do Not Resuscitate Order? No 01/10/18 11:16am Do you have any special needs we should be aware of? No 01/10/18 11:16am Do you have a support person here with you today? Yes 01/10/18 11:16am Did patient receive Notice of Privacy Practices? Yes 01/10/18 11:16am Did patient receive patient rights and responsibilities? Yes 01/10/18 11:16am Problems Medical Problem Onset Date Status Dehydration Unknown Dehydration Unknown Diverticulitis Unknown Hypokalemia Unknown Hypomagnesemia Unknown Hyponatremia Unknown UTI (urinary tract infection) Unknown Urinary retention Unknown Vomiting Unknown Medications Current Home Medications Medication Dose Units Route Directions Days Qty Instructions Start Date Cephalexin (Keflex) 250 Mg Capsule 250 Mg Oral Three Times A Day 21 Esomeprazole Magnesium (Nexium) 40 Mg Capsule.dr 40 Mg Oral Daily Ezetimibe (Zetia) 10 Mg Tablet 10 Mg Oral Daily Potassium Chloride 40 Meq/15 Ml Liquid 15 [...] Mg Tablet, 50 Mg Oral Daily Discontinued Lisinopril 10 Mg Tablet, 5 Mg Oral Daily Discontinued Metronidazole (Flagyl) 250 Mg Tablet, 500 Mg Oral Three Times A Day Discontinued Nitrofurantoin Macrocrystal (Nitrofurantoin) 100 Mg Capsule, 100 Mg Oral Twice A Day Discontinued Social History Social History Problem Response Recorded Date/Time Onset Date Status Hx Psychiatric Problems No 01/10/2018 6:24pm Not Applicable Not Applicable Hx Eating Disorder No 01/10/2018 6:24pm Not Applicable Not Applicable Hx Substance Use Disorder No 01/10/2018 6:24pm Not Applicable Not Applicable Hx Depression No 01/10/2018 6:24pm Not Applicable Not Applicable Hx Alcohol Use No 01/10/2018 6:24pm Not Applicable Not Applicable Hx Substance Use Treatment No 01/10/2018 6:24pm Not Applicable Not Applicable Hx Physical Abuse No 01/10/2018 6:24pm Not Applicable Not Applicable Smoking Status Start Date Stop Date Unknown if ever smoked Hospital Discharge Instructions No hospital discharge instruction information available. Plan of Care Discharge Date 01/16/18 10:13am Disposition HOME, SELF-CARE Instructions/Education Provided Dehydration - Adult Urinary Tract Infection - Women Prescriptions See Medication Section Additional Instructions/Education Regular diet and follow up with PCP in 2 weeks Functional Status Query Response Date Recorded Assistive Devices None January 10, 2018 6:36pm Ambulation Ability Independent January 10, 2018 6:36pm Toileting Ability Independent January 15, 2018 5:58pm Allergies, Adverse Reactions, Alerts Allergen Type Severity Reaction Status Last Updated Sulfa (Sulfonamide Antibiotics) Allergy Unknown STOMACH PROBLEMS Active Codeine Allergy Unknown STOMACH PROBLEMS Active 12/01/17 Levofloxacin Adverse Reaction Mild NUMBING OF LIPS, FACIAL FLUSHING Active 12/03/17 Immunizations No immunization information available. Vital Signs Acute Vital Signs Vital Response Date/Time Temperature (Fahrenheit) 96.1 degrees F (97.6 - 99.5) 01/16/2018 4:00am Pulse Pulse Rate (adult) 83 bpm (60 - 90) 01/16/2018 4:00am Respiratory Rate 16 bpm (12 - 24) 01/16/2018 4:00am Blood Pressure 131/60 mm Hg 01/16/2018 4:00am Height 5 ft 4 in 01/10/2018 10:49am Weight 110 lb 01/10/2018 10:49am Body Mass Index 18.9 kg/m^2 01/10/2018 6:24pm Results Laboratory Results Test Name Result Units Flags Reference Collection Date/Time Result Date/ Time Comments Urine Transitional Epithelial Cells RARE H NONE 05/10/2017 9:50am 10:21am Urine Renal Epithelial Cells RARE H NONE 05/10/2017 9:50am 05/10/2017 10:21am Clostridium Difficile Toxin A & B NEGATIVE NEGATIVE 12/03/2017 5:25pm 12/03/2017 8:50pm Testing on stool aspirate specimens is outside interpreter and translator claims since specimen type not validated on this assay. White Blood Count 6.10 x10e3/uL 4.8-10.8 01/15/2018 5:57am 01/15/2018 6 :32am Red Blood Count 3.96 x10e6/uL 3.6-5.1 01/15/2018 5:57am 01/15/2018 6: 32am Hemoglobin 11.5 g/dL L 12.0-16.0 01/15/2018 5:57am 01/15/2018 6:32am Cathleen Medina Hematocrit 32.8 % L 34.2-44.1 01/15/2018 5:57am 01/15/2018 6:32am Mean Corpuscular Volume 82.8 fL 81-99 01/15/2018 5:57am 01/15/2018 6: 32am Mean Corpuscular Hemoglobin 29.0 pg 28-32 01/15/2018 5:57am 01/15/2018 6:32am Mean Corpuscular Hemoglobin Concent 35.1 g/dL H 31-35 01/15/2018 5:57am 01/15/2018 6:32am Red Cell Distribution Width 12.8 % 11.7-14.4 01/15/2018 5:57am 2017 6:32am Platelet Count 320 x10e3/uL 140-360 01/15/2018 5:57am 01/15/2018 6: 32am Neutrophils (%) (Auto) 55.9 % 38.7-80.0 01/15/2018 5:57am 01/15/2018 6: 32am Lymphocytes (%) (Auto) 32.6 % 18.0-39.1 01/15/2018 5:57am 01/15/2018 6: 32am Monocytes (%) (Auto) 7.9 % 4.4-11.3 01/15/2018 5:57am 01/15/2018 6: 32am Eosinophils (%) (Auto) 2.5 % 0.0-6.0 01/15/2018 5:57am 01/15/2018 6: 32am Basophils (%) (Auto) 0.3 % 0.0-1.0 01/15/2018 5:57am 01/15/2018 6:32am IM GRANULOCYTES % 0.8 % 0.0-1.0 01/15/2018 5:57am 01/15/2018 6:32am Neutrophils # (Auto) 3.4 2.1-6.9 01/15/2018 5:57am 01/15/2018 6:32am Lymphocytes # (Auto) 2.0 1.0-3.2 01/15/2018 5:57am 01/15/2018 6:32am Monocytes # (Auto) 0.5 0.2-0.8 01/15/2018 5:57am 01/15/2018 6:32am Eosinophils # (Auto) 0.2 0.0-0.4 01/15/2018 5:57am 01/15/2018 6:32am Basophils # (Auto) 0.0 0.0-0.1 01/15/2018 5:57am 01/15/2018 6:32am Absolute Immature Granulocyte (auto 0.05 x10e3/uL 0-0.1 01/15/2018 5: 57am 01/15/2018 6:32am Prothrombin Time 13.8 seconds 11.9-14.5 01/10/2018 12:00pm 01/10/2018 12:53pm Prothromb Time International Ratio 1.15 01/10/2018 12:00pm 2017 12:53pm Oral Anticoagulant Therapy INR Values: 1. Low Intensity Therapy 1.5 - 2.0 2. Moderate Intensity Therapy 2.0 - 3.0 3. High Intensity Therapy(1) 2.5 - 3.5 4. High Intensity Therapy(2) 3.0 - 4.0 5. Panic Value INR > 5.0 Activated Partial Thromboplast Time 20.2 seconds L 23.8-35.5 01/10/2018 12:00pm 01/10/2018 12:53pm Urine Color YELLOW YELLOW 01/10/2018 2:00pm 01/10/2018 2:45pm Urine Clarity CLEAR CLEAR 01/10/2018 2:00pm 01/10/2018 2:45pm Urine Specific [place] 1.020 1.010-1.025 01/10/2018 2:00pm 2017 2:45pm Urine pH 6.5 5 - 7 01/10/2018 2:00pm 01/10/2018 2:45pm Urine Leukocyte Esterase TRACE H NEGATIVE 01/10/2018 2:00pm 2017 2:45pm Urine Nitrite POSITIVE H NEGATIVE 01/10/2018 2:00pm 01/10/2018 2:45pm Urine Protein NEGATIVE NEGATIVE 01/10/2018 2:00pm 01/10/2018 2:45pm Urine Glucose (UA) NEGATIVE NEGATIVE 01/10/2018 2:00pm 01/10/2018 2: 45pm Urine Ketones NEGATIVE NEGATIVE 01/10/2018 2:00pm 01/10/2018 2:45pm Urine Urobilinogen 0.2 mg/dL 0.2 - 1 01/10/2018 2:00pm 01/10/2018 2: 45pm Urine Bilirubin NEGATIVE NEGATIVE 01/10/2018 2:00pm 01/10/2018 2: 45pm Urine Blood 2+ H NEGATIVE 01/10/2018 2:00pm 01/10/2018 2:45pm Urine WBC 11-20 /HPF H 0-5 01/10/2018 2:00pm 01/10/2018 2:50pm Urine RBC 21-50 /HPF H 0-5 01/10/2018 2:00pm 01/10/2018 2:50pm Urine Bacteria MODERATE /HPF H NONE 01/10/2018 2:00pm 01/10/2018 2:50pm Urine Epithelial Cells NONE /LPF NONE 01/10/2018 2:00pm 01/10/2018 2: 50pm Urine Amorphous Sediment FEW FEW 01/10/2018 2:00pm 01/10/2018 2:50pm Sodium Level 133 mmol/L L 136-145 01/15/2018 5:57am 01/15/2018 7:17am Potassium Level 3.6 mmol/L # 3.5-5.1 01/15/2018 5:57am 01/15/2018 7:17am Chloride Level 95 mmol/L L 98-107 01/15/2018 5:57am 01/15/2018 7:17am Carbon Dioxide Level 27 mmol/L 22-29 01/15/2018 5:57am 01/15/2018 7: 17am Anion Gap 14.6 mmol/L 8-16 01/15/2018 5:57am 01/15/2018 7:17am Blood Urea Nitrogen 9 mg/dL 7-01/15/2018 5:57am 01/15/2018 7:17am Creatinine 0.75 mg/dL 0.57-1.11 01/15/2018 5:57am 01/15/2018 7:17am BUN/Creatinine Ratio 12 6-01/15/2018 5:57am 01/15/2018 7:17am Estimat Glomerular Filtration Rate > 60 ML/MIN 60- 01/15/2018 5:57am 7:17am Ranges were taken from the National Kidney Disease Education Program and the National Kid[employer] Foundation literature. Reference ranges: 60 or greater: Normal 16-59 (for 3 consecutive months): Chronic kidney disease 15 or less: Kidney failure Glucose Level 95 mg/dL 74-118 01/15/2018 5:57am 01/15/2018 7:17am Calcium Level 9.6 mg/dL 8.4-10.2 01/15/2018 5:57am 01/15/2018 7:17am Magnesium Level 1.2 MG/DL L 1.3-2.1 01/15/2018 5:57am 01/15/2018 7:20am Total Bilirubin 0.4 mg/dL 0.2-1.2 01/15/2018 5:57am 01/15/2018 7:17am Aspartate Amino Transf (AST/SGOT) 12 IU/L 5-34 01/15/2018 5:57am 2017 7:17am Alanine Aminotransferase (ALT/SGPT) 13 IU/L 0-55 01/15/2018 5:57am 10/2017 7:17am Total Protein 6.8 g/dL 6.5-8.1 01/15/2018 5:57am 01/15/2018 7:17am Albumin 2.9 g/dL L 3.5-5.0 01/15/2018 5:57am 01/15/2018 7:17am Globulin 3.9 g/dL H 2.3-3.5 01/15/2018 5:57am 01/15/2018 7:17am Albumin/Globulin Ratio 0.7 L 0.8-2.0 01/15/2018 5:57am 01/15/2018 7: 17am Alkaline Phosphatase 103 IU/L 40-150 01/15/2018 5:57am 01/15/2018 7: 17am Creatine Kinase 32 IU/L 29-168 01/11/2018 5:58am 01/11/2018 6:47am Creatine Kinase MB 0.30 ng/mL 0-5.0 01/11/2018 5:58am 01/11/2018 6: 47am Troponin I < 0.001 ng/mL 0-0.300 01/11/2018 5:58am 01/11/2018 6:47am Microbiology Results Procedure Source Organism/Result Collection Date/Time Result Date/Time Result Status Urine Culture Urine,Random ESCHERICHIA COLI 12/01/2017 12:23pm 12/03/2017 9:41am Final Urine Culture Urine,[place] ESCHERICHIA COLI 01/10/2018 12:15pm 2017 6:59am Final Procedures Procedure Status Date Provider(s) CT of abdomen and pelvis without contrast Active 05/02/17 ARIANA CABRERA MD X-ray of chest, two views Active 05/25/17 TAWANNA HDZ MD Computed tomography of abdomen and pelvis with contrast Active 12/01/17 RM HARDEN NP X-ray of chest, two views Active 01/10/18 ORLY SANTANA MD Encounters Encounter Location Arrival/Admit Date Discharge/Depart Date Attending Provider Discharged Inpatient [facility] 01/13/18 11:32am 10:13am JAZLYN MELGOZA MD Discharged Inpatient [facility] 12/01/17 4:24pm 12/06/17 10:48am JAZLYN MELGOZA MD Discharged Inpatient [facility] 05/27/17 3:48pm 05/28/17 10:11am JAZLYN MELGOZA MD Discharged Inpatient [facility] 05/10/17 10:47am 9:19am JAZLYN MELGOZA MD Discharged Inpatient [facility] 05/02/17 9:08pm 05/07/17 11:00am JAZLYN MELGOZA MD
--- NOTE | 2018-02-20 15:46 | Diagnostic Imaging Report ---
Exams: Head, cervical spine and maxilla facial CTs without IV contrast History: Trauma, fall Comparison studies: None Technique: Axial images were obtained to the vertex and maxillofacial region. Coronal and sagittal images reconstructed from the axial data. Intravenous contrast: None Findings: Brain: Scalp: Right frontal scalp hematoma. Bones: No fractures, blastic or lytic lesions. Brain sulci: Moderately prominent. Moderate compensatory dilatation Ventricles: Normal in size and configuration. No hydrocephalus. Parenchyma: No mass, acute hemorrhage or acute or chronic cortical vascular insults. A few scattered and mildly confluent-appearing periventricular hypodensities in the supratentorial white matter are nonspecific but most compatible with chronic small vessel ischemic changes. Sellar/suprasellar region: No abnormalities Craniocervical junction: Patent foramen magnum. No Chiari one malformation. Maxillofacial CT: Evaluation of the oral cavity is limited by metallic dental artifact related to dental implants. Soft tissues: Right frontal scalp hematoma. Bones: No fractures. Demineralization bones. Orbits: Globes are intact. There are bilateral intraocular lens replacements. No intraconal or extraconal abnormalities. Paranasal sinuses: Clear. Cervical spine: Fractures: None. Soft tissue injuries: No gross acute abnormalities. Atlantoaxial articulation: Intact. Alignment: Straightened curvature may be positional. No subluxations. Cervicomedullary junction: No abnormalities. Patent foramen magnum. Soft tissues: No gross acute abnormalities. Vertebrae: Demineralized bones. No evidence of infection or neoplasm. Degenerative changes: Multilevel disc degeneration, worse/moderate at C4-C5. Disc osteophyte complexes from C3-C4 to C6-C7 and mild multifocal ossification the posterior longitudinal ligament do not result in significant canal stenosis. Varying degrees of mild to moderate multilevel facet arthrosis. Multilevel uncovertebral and facet arthrosis result in multilevel foraminal stenosis (mild right at C3-C4, moderate left and mild right at C4-C5, mild bilaterally at C5-C6 and severe right and moderate left at C6-C7). Incidental findings: Scattered calcified atherosclerosis (origins of the bilateral vertebral arteries, V1 and V2 segments of the right vertebral artery, intradural V4 segment of the left vertebral artery, left carotid bulb, bilateral cervical internal carotid arteries and in the carotid siphons). Right thyroid lobe 4 mm nodule or cyst for which no further workup is indicated. IMPRESSION: Head CT: 1. Right frontal scalp hematoma without underlying fracture. 2. No acute intracranial abnormalities. 3. Mild general cerebral volume loss. 4. Mild to moderate chronic microvascular ischemic changes. Maxillofacial CT: 1. Right frontal scalp hematoma as above. 2. No maxillofacial fractures or other acute abnormalities. Cervical spine CT: 1. No acute abnormalities. 2. Multilevel degenerative changes as described. 3. Cannot adequately evaluate ligament, spinal cord and or vascular abnormalities cannot be excluded on the basis of this examination. Signed by: Dr. Felix Christina M.D. on 02/20/2018 3:42 PM
[2018-02-20 16:24] VITALS: BP 138/81
== END 2018-02-20 16:36 | disposition home or self-care (01) ==
LOC: ER 14:03
DX: S00.03XA Contusion of scalp, initial encounter (principal); S00.83XA Contusion of other part of head, initial encounter; M79.631 Pain in right forearm; W01.0XXA Fall on same level from slipping, tripping and stumbling without subsequent striking against object, initial encounter; Y92.008 Other place in unspecified non-institutional (private) residence as the place of occurrence of the external cause; I10 Essential (primary) hypertension
CPT/HCPCS: 70450; 70486; 72125; 99283

== ENCOUNTER 2018-06-08 20:36 | Emergency (ER) | payer MEDICARE ==
[~2018-06-08] VITALS: Ht 162.6 cm; Wt 49.9 kg
--- NOTE | 2018-06-08 22:05 | Diagnostic Imaging Report ---
EXAM: ABDOMEN-1VIEW (KUB) INDICATION: Constipated, no bowel movement COMPARISON: None FINDINGS: LINES/TUBES: None BOWEL PATTERN: No evidence for obstruction. Surgical sutures right lower quadrant of the abdomen. SOFT TISSUES: No abnormal calcifications. Right upper quadrant cholecystectomy clips. LUNG BASES: No consolidations. BONES: No acute findings. IMPRESSION: Moderate amount of retained stool without obstruction. Signed by: Dr. Shannan Garcia M.D. on 06/08/2018 9:59 PM
== END 2018-06-08 23:44 | disposition home or self-care (01) ==
LOC: ER 20:36
DX: K59.00 Constipation, unspecified (principal)
CPT/HCPCS: 74018; 99283

== ENCOUNTER 2018-10-09 23:20 | Emergency (ER) | payer MEDICARE ==
[~2018-10-09] VITALS: Ht 162.6 cm; Wt 49.9 kg
[2018-10-10 00:48] LABS: BILIRUBIN,URINE NEGATIVE (NEGATIVE); CLARITY,URINE CLOUDY (CLEAR); COLOR,URINE YELLOW (YELLOW); KETONES,URINE NEGATIVE (NEGATIVE); LEUKOCYTE ESTERASE ,URINE 2+ (NEGATIVE); NITRITE,URINE POSITIVE (NEGATIVE); PROTEIN,URINE DIPSTICK 1+ (NEGATIVE); URINE UROBILINOGEN 0.2 mg/dL (0.2 - 1)
[2018-10-10 00:49] LABS: AMORPHOUS SEDIMENT,URINE MODERATE (FEW); BACTERIA,URINE MANY /HPF; EPITHELIAL CELLS,URINE FEW /LPF; WBC,URINE (MAN) 21-50 /HPF (0-5)
[2018-10-10] MEDS ORDERED: MACROBID 100 M100 MG PO (01:00)
[2018-10-10] MEDS ORDERED: CEFTRIAXONE SOD 1 GM/NS 50 ML 50 ML IV ONE (01:00)
[2018-10-10] MEDS ORDERED: NITROFURANTOIN MACROCRYSTALS 100 MG CAP PO ONE (01:30)
[2018-10-10 01:45] VITALS: BP 188/91
== END 2018-10-10 01:57 | disposition home or self-care (01) ==
LOC: ER 23:20
DX: R50.9 Fever, unspecified (principal); R30.0 Dysuria; R11.0 Nausea; N30.91 Cystitis, unspecified with hematuria; I10 Essential (primary) hypertension; E78.00 Pure hypercholesterolemia, unspecified; K21.9 Gastro-esophageal reflux disease without esophagitis; H40.9 Unspecified glaucoma
CPT/HCPCS: 81001; 99283; J0696

== ENCOUNTER 2018-10-10 22:57 | Observation (INO) | payer MEDICARE ==
[~2018-10-10] VITALS: Ht 162.6 cm; Wt 51.9 kg
[~2018-10-10 22:57] MED LIST changes: +MACROBID 100 M100 MG PO
[2018-10-10] MEDS ORDERED: ACETAMINOPHEN 1000 MG/100 ML IV STA (23:19)
--- NOTE | 2018-10-10 23:56 | NUR ---
Report Given to LIBIA Day Pt AAOX3 and hemodynamically stable at time of D/C
[2018-10-11] VITALS (7 sets, daily range): BP systolic 110–136; BP diastolic 51–63
--- NOTE | 2018-10-11 00:18 | Diagnostic Imaging Report ---
EXAM: CT Abdomen and Pelvis WITHOUT contrast INDICATION: FEVER, NAUSEA, DX'D WITH CYSTITIS/UTI LAST NIGHT ^Y COMPARISON: CT abdomen and pelvis 12/01/2017. TECHNIQUE: Abdomen and pelvis were scanned utilizing a multidetector helical scanner from the lung base to the pubic symphysis without administration of IV contrast. Absence of intravenous contrast decreases sensitivity for detection of focal lesions and vascular pathology. Coronal and sagittal reformations were obtained. Routine protocol was performed. IV CONTRAST: None ORAL CONTRAST: Water COMPLICATIONS: None RADIATION DOSE: Total DLP: 171.3 mGy*cm Estimated effective dose: (DLP x 0.015 x size factor) mSv Dose modulation, iterative reconstruction, and/or weight based adjustment of the mA/kV was utilized to reduce the radiation dose to as low as reasonably achievable. FINDINGS: LINES and TUBES: Johnson catheter within the bladder. LOWER THORAX: Unremarkable HEPATOBILIARY: No focal hepatic lesions. No biliary ductal dilation. GALLBLADDER: No radio-opaque stones or sludge. No wall thickening. SPLEEN: No splenomegaly. PANCREAS: No focal masses or ductal dilatation. ADRENALS: No adrenal nodules KIDNEYS/URETERS: No hydronephrosis. No cystic or solid mass lesions. No stones. Punctate cortical calcification in the midpole of the right kidney. GI TRACT: No abnormal distention, wall thickening, or evidence of bowel obstruction. Right hemicolectomy. There are diverticula within the colon without evidence of diverticulitis. Appendix is normal. PELVIC ORGANS/BLADDER: Johnson catheter. Otherwise, unremarkable. LYMPH NODES: No lymphadenopathy. VESSELS: There is moderate atherosclerotic disease in the aorta and major arterial branches. PERITONEUM / RETROPERITONEUM: No free air or fluid. BONES: Osseous demineralization. Age-indeterminate compression deformity of L3, new from at least 12/01/2017, approximately 40% loss of height. SOFT TISSUES: Unremarkable. IMPRESSION: 1. No acute abnormalities in the abdomen or pelvis. 2. Colonic diverticulosis. 3. Right hemicolectomy. 4. Age-indeterminate L3 compression deformity. Signed by: DR. Yosef Gonsalez MD on 10/11/2018 12:15 AM
[2018-10-11] MEDS: CEFTRIAXONE SOD 1 GM/NS 50 ML 50 ML IV SCH (00:33)
[2018-10-11 01:00] LABS: BASOPHILS % 0.1 % (0.0-1.0); EOSINOPHILS % 0.2 % (0.0-6.0); HEMATOCRIT 34.4 % (34.2-44.1); HEMOGLOBIN 12.9 g/dL (12.0-16.0); LYMPHOCYTES # (AUTO) 0.8 (1.0-3.2); LYMPHOCYTES % 6.9 % (18.0-39.1); MEAN CORPUSCULAR HEMOGLOBIN 31.1 pg (28-32); MEAN CORPUSCULAR HGB CONC 37.5 g/dL (31-35); MEAN CORPUSCULAR VOLUME 82.9 fL (81-99); MONOCYTES # (AUTO) 0.3 (0.2-0.8); MONOCYTES % 2.3 % (4.4-11.3); NEUTROPHILS # (AUTO) 10.3 (2.1-6.9); PLATELET COUNT 322 x10e3/uL (140-360); RED BLOOD COUNT 4.15 x10e6/uL (3.6-5.1); RED CELL DISTRIBUTION WIDTH 12.7 % (11.7-14.4)
[2018-10-11] MEDS: SODIUM CHLORIDE 0.9% 1000ML 1,000 ML IV SCH ×3 (01:04→17:21)
[2018-10-11 01:09] LABS: ALBUMIN 3.8 g/dL (3.5-5.0); ALBUMIN/GLOBULIN RATIO 1.2 (0.8-2.0); ANION GAP 17.4 mmol/L (8-16); CALCIUM 9.4 mg/dL (8.4-10.2); CREATININE, SERUM 0.94 mg/dL (0.57-1.11); POTASSIUM 3.4 mmol/L (3.5-5.1)
[2018-10-11 04:50] LABS: BASOPHILS % 0.2 % (0.0-1.0); EOSINOPHILS % 0.3 % (0.0-6.0); HEMATOCRIT 32.4 % (34.2-44.1); LYMPHOCYTES # (AUTO) 0.5 (1.0-3.2); LYMPHOCYTES % 4.6 % (18.0-39.1); MEAN CORPUSCULAR HEMOGLOBIN 30.6 pg (28-32); MEAN CORPUSCULAR VOLUME 82.7 fL (81-99); MONOCYTES # (AUTO) 0.3 (0.2-0.8); MONOCYTES % 2.8 % (4.4-11.3); NEUTROPHILS # (AUTO) 9.5 (2.1-6.9); NEUTROPHILS % 91.7 % (38.7-80.0); PLATELET COUNT 238 x10e3/uL (140-360); RED BLOOD COUNT 3.92 x10e6/uL (3.6-5.1); RED CELL DISTRIBUTION WIDTH 12.7 % (11.7-14.4)
[2018-10-11 05:09] LABS: ALANINE AMINOTRANSFERASE 25 IU/L (0-55); ALBUMIN 3.4 g/dL (3.5-5.0); ALBUMIN/GLOBULIN RATIO 1.3 (0.8-2.0); ALKALINE PHOSPHATASE 75 IU/L (40-150); ANION GAP 17.1 mmol/L (8-16); BLOOD UREA NITROGEN 10 mg/dL (7-26); BUN/CREATININE RATIO 12 (6-25); CALCIUM 8.8 mg/dL (8.4-10.2); CARBON DIOXIDE 23 mmol/L (22-29); CHLORIDE 95 mmol/L (98-107); CREATININE, SERUM 0.83 mg/dL (0.57-1.11); EST GLOMERULAR FILTRATION RATE > 60 ML/MIN (60-); GLUCOSE 111 mg/dL (74-118); POTASSIUM 3.1 mmol/L (3.5-5.1); SODIUM 132 mmol/L (136-145)
[2018-10-11] MEDS ORDERED: ONDANSETRON HCL INJ 2MG/ML 2ML 2 MG/ML VIAL IV PRN (07:15)
--- NOTE | 2018-10-11 07:21 | History and Physical ---
Admitted here yesterday for urinary tract infection and also hypertension. HISTORY OF PRESENTING ILLNESS: This is Ms. Edwige Marr who is seen in the ED about a day ago with fever and chills, for cystitis, was started on antibiotics for urinary tract infection. The patient came back with intractable nausea and also abdominal pain. The patient did complain of some urinary frequency yesterday. The patient was admitted to the hospital with cystitis and fever unspecified and hematuria. PAST MEDICAL HISTORY: History of reflux esophagitis, history of recurrent urinary tract infections, history of glaucoma and history of hypertension, diverticulitis, history of hypokalemia, history of hypomagnesemia, history of hyperlipidemia. HOME MEDICATIONS: Esomeprazole 40 mg daily; Zetia 10 mg for hyperlipidemia; Macrobid twice a day, 20 tablets were given the day before, potassium chloride, timolol maleate and triamterene and hydrochlorothiazide. PAST SURGICAL HISTORY: History of appendectomy, history of cholecystectomy, and history of back surgery. FAMILY HISTORY: Alzheimer's and esophageal cancer in father. History of hypertension in both parents. ALLERGIES: THE PATIENT IS ALLERGIC TO SULFA MEDICATIONS, CODEINE AND LEVAQUIN. SOCIAL HISTORY: No ETOH. No IV drug abuse. No history of smoking either. REVIEW OF SYSTEMS: Negative for chest pain. No shortness of breath. Positive for nausea. No vomiting. No diarrhea. No constipation. No rectal bleeding. No hematochezia. No hematemesis. Positive for abdominal pain and also for frequency. PHYSICAL EXAMINATION VITAL SIGNS: Temperature 97.6, blood pressure 110/51, pulse oximetry 99%. The patient's T-max was 101.5 on arrival to the hospital or ED. GENERAL: The patient is alert and oriented x3. Continues to have some nausea at this time. The patient is feeling better from yesterday, is on IV fluids. HEENT: Normocephalic and atraumatic. Pupils are reactive to light and accommodation. CVS: S1 and S2. Tachycardic. ABDOMEN: Nontender and nondistended. EXTREMITIES: No cyanosis, no clubbing and no edema. LABORATORY VALUES: White count was 11,000 with a hemoglobin of 12.9, hematocrit of 34.4. Chemistry shows sodium of 131, potassium was 3.4, anion gap was 17.5, EGFR of 56 with creatinine of 0.94. Glucose was 151. ALT, AST and total protein were normal. The patient's urine specimens are pending. Microbiology is pending. ASSESSMENT: An 88-year-old female with; 1. Urinary tract infection. The patient has been started on Rocephin 1 gram q.12h. in lieu of her kidneys. We will continue monitoring the patient. Blood and urine cultures will be sent. 2. Dehydration. We will continue hydrating the patient with gentle hydration. We will cut back the fluids to 75 mL an hour. 3. Acute kidney injury. Continue with fluids and check labs in the morning. 4. Debility and weakness. We will continue monitoring the patient. PLAN: The plan is to continue monitoring her for the next 1 to 2 days and possible discharge tomorrow after labs have been checked. Further recommendations per clinical course. Job#: [id number] TEJINDER
--- NOTE | 2018-10-11 07:59 | NUR ---
patient resting in bed, AAOX3, Not in any distress, denies any pain, call light in reach, Dr Erickson had rounds, patient c/o nausea, new order recvd from Dr Erickson. Pharmacy has to verify it
[2018-10-11] MEDS ORDERED: POTASSIUM CHLORIDE PO SCH (09:00)
[2018-10-11] MEDS ORDERED: POTASSIUM CHLORIDE 20 MEQ TAB CR PO SCH (09:00)
[2018-10-11] MEDS ORDERED: TRIAMTERENE/HCTZ 37.5-25 MG TAB PO SCH ×2 (09:00→14:30)
[2018-10-11] MEDS: EZETIMIBE 10 MG TAB PO SCH (09:18)
[2018-10-11] MEDS: PANTOPRAZOLE SOD 40 MG TABEC PO SCH (09:18)
--- NOTE | 2018-10-11 10:14 | NUR ---
Managing Member to bedside to discuss plan of care with patient/family. CM/SW role and care transitions discussed. Anticipated discharge plan discussed along with duration of care. CM/SW discussed patients right to make decisions in care. CM/SW work hours given. Patient lives: at home. son and daughter in law lives with her Admit/Transfer: thru ED, from home POA/Emergency contact: son Michael Marr, Current/Previous Home Health: none. stated [facility] offered to set up for her but she does not need it PCP/Follow-up Care: Dr. Curran; Dr. Andrea for urology Current/Previous DME: has a walker and 3 canes, uses occasionally when needed Other Services: none Employment Status: retired Areas of Concerns: UTI Referral Needs: none Education Needs: UTI, medical management IMM/CHRISTINE given and signed (if applicable): CHRISTINE Goal for discharge: Home with no needs; states Dr. Erickson said possibly tomorrow CM/SW left business card at the bedside with contact information. Name and number was also written on the patients whiteboard. Patient verbalized understanding of discussion. CM will follow-up with ongoing discharge and transition of care needs.
[2018-10-11] MEDS: TIMOLOL MALEATE 0.5% OPTH DRP 5 ML BTL OU SCH ×2 (10:16→17:21)
[2018-10-11] MEDS ORDERED: ACETAMINOPHEN 325 MG TAB PO PRN (14:15)
[2018-10-11] MEDS: POTASSIUM CHLORIDE 20MEQ/15ML UDC PO SCH (14:26)
--- NOTE | 2018-10-11 15:02 | NUR ---
rechecked temperature 99.1, no distress noted, call light in reach
[2018-10-11] MEDS: TRIAMTERENE/HCTZ 37.5-25 MG TAB PO SCH (16:40)
--- NOTE | 2018-10-11 19:24 | NUR ---
Report received and walking rounds complete. Pt sleeping in bed and in no apparent distress. Pt has parekh cath. All safety measures ensured, bed alarm on, and pt call anderson near.
[2018-10-12] VITALS: BP 131/59
[2018-10-12] MEDS: CEFTRIAXONE SOD 1 GM/NS 50 ML 50 ML IV SCH (00:03)
[2018-10-12] MEDS: SODIUM CHLORIDE 0.9% 1000ML 1,000 ML IV SCH ×2 (02:50→07:27)
[2018-10-12 04:00] VITALS: BP 136/66
[2018-10-12 08:00] VITALS: BP 170/71
[2018-10-12] MEDS: TRIAMTERENE/HCTZ 37.5-25 MG TAB PO SCH (09:30)
[2018-10-12] MEDS: TIMOLOL MALEATE 0.5% OPTH DRP 5 ML BTL OU SCH (09:30)
[2018-10-12] MEDS: EZETIMIBE 10 MG TAB PO SCH (09:31)
[2018-10-12] MEDS: PANTOPRAZOLE SOD 40 MG TABEC PO SCH (09:31)
[2018-10-12] MEDS: POTASSIUM CHLORIDE 20MEQ/15ML UDC PO SCH (09:31)
[2018-10-12] MEDS ORDERED: KEFLEX500 MG PO (09:35)
[2018-10-12] MEDS ORDERED: ZOFRAN8 MG PO (09:36)
--- NOTE | 2018-10-12 10:19 | NUR ---
Patient was discharged home with her son and daughter in law. She collected her belongings and took it with it. Patient, her son, and daughter in law was told discharge instructions and understood.
--- NOTE | 2018-10-13 00:17 | Progress Note ---
DATE: SUBJECTIVE: Patient is here for intractable nausea and vomiting and also for urinary tract infection. Patient is currently asymptomatic. Nausea has dissipated. No chest pain, no shortness of breath, and no diarrhea. Patient does have a history of chronic UTIs with an indwelling catheter, currently asymptomatic. OBJECTIVE VITALS: Temperature is 96.7, pulse of 84, respirations of 19, blood pressure is 136/66, the pulse oximetry 95% on 2 liters of oxygen. HEENT: Normocephalic, atraumatic. Pupils are reactive to light and accommodation. CVS: S1, S2 are normal. Regular rate and rhythm. ABDOMEN: Nontender, nondistended. EXTREMITIES: No clubbing, no cyanosis, no edema. : Johnson catheter to gravity and clear urine. LABORATORY VALUES: Today's white count is 10.38, hemoglobin of 12.0, hematocrit of 32.4. Chemistries: Sodium 132, potassium of 3.1, BUN of 10, creatinine of 0.83. Urine culture is pending. IMPRESSION AND PLAN 1. Urinary tract infection. We will start the patient on Keflex 500 mg twice a day for 10 days. Patient has an appointment with Dr. Andrea, we will keep that appointment. 2. Nausea and vomiting, possible from Macrobid. We will stop Macrobid. 3. Hypertension. Continue on current medications. 1. Hypokalemia. We will go ahead and give her 40 mEq of potassium before discharge and keep her on 40 mEq at home. 2. Gastrointestinal prophylaxis with pantoprazole. 3. Hyperlipidemia, continue with Zetia. Job#: [id number]
== END 2018-10-12 10:28 | disposition home or self-care (01) ==
LOC: ER 22:57 → ERHOLD 23:57 → IMCU 10-11 00:08
PROVIDERS: ADMIT Family Medicine; ATTEND Family Medicine
DX: N39.0 Urinary tract infection, site not specified (principal); E86.0 Dehydration; N17.9 Acute kidney failure, unspecified; R53.81 Other malaise; E87.6 Hypokalemia; E78.5 Hyperlipidemia, unspecified
CPT/HCPCS: 36415 ×2; 74176; 80053 ×2; 85025 ×2; 87086; 87186; 99284; G0378 ×3; J0131; J0696 ×2; J2405; J7030 ×2; S0164 ×2

== ENCOUNTER 2020-01-05 18:54 | Emergency (ER) | payer MEDICARE ==
[~2020-01-05] VITALS: Ht 162.6 cm; Wt 51.7 kg
[~2020-01-05 18:54] MED LIST changes: +KEFLEX500 MG PO; +ZOFRAN8 MG PO
--- NOTE | 2020-01-05 20:17 | NUR ---
Patient had 18 Kinyarwanda leg bag that was removed and 16 Kinyarwanda Johnson was placed.
--- NOTE | 2020-01-05 20:20 | NUR ---
675 mL of urine output noted. notified.
[2020-01-05 20:27] LABS: BILIRUBIN,URINE NEGATIVE (NEGATIVE); CLARITY,URINE SL CLOUDY (CLEAR); COLOR,URINE YELLOW (YELLOW); KETONES,URINE NEGATIVE (NEGATIVE); LEUKOCYTE ESTERASE ,URINE LARGE (NEGATIVE); NITRITE,URINE POSITIVE (NEGATIVE); PROTEIN,URINE DIPSTICK NEGATIVE (NEGATIVE); URINE UROBILINOGEN 0.2 mg/dL (0.2 - 1)
[2020-01-05 20:43] LABS: WBC,URINE (MAN) 21-50 /HPF (0-5)
[2020-01-05 20:44] LABS: AMORPHOUS SEDIMENT,URINE MODERATE (FEW); BACTERIA,URINE MANY /HPF
[2020-01-05 21:01] VITALS: BP 168/78
== END 2020-01-05 21:10 | disposition home or self-care (01) ==
LOC: ER 18:54
DX: R33.9 Retention of urine, unspecified (principal); R10.30 Lower abdominal pain, unspecified; E78.5 Hyperlipidemia, unspecified; K21.9 Gastro-esophageal reflux disease without esophagitis
CPT/HCPCS: 81001; 87086; 87186; 99283

== ENCOUNTER 2020-07-31 21:11 | Emergency (ER) | payer MEDICARE ==
[~2020-07-31] VITALS: Ht 162.6 cm; Wt 51.7 kg
[2020-07-31 21:50] LABS: BASOPHILS % 0.3 % (0.0-1.0); EOSINOPHILS # (AUTO) 0.1 (0.0-0.4); EOSINOPHILS % 1.9 % (0.0-6.0); HEMATOCRIT 38.8 % (34.2-44.1); LYMPHOCYTES # (AUTO) 2.5 (1.0-3.2); LYMPHOCYTES % 35.3 % (18.0-39.1); MEAN CORPUSCULAR HEMOGLOBIN 28.3 pg (28-32); MEAN CORPUSCULAR HGB CONC 33.5 g/dL (31-35); MEAN CORPUSCULAR VOLUME 84.5 fL (81-99); MONOCYTES # (AUTO) 0.4 (0.2-0.8); MONOCYTES % 6.3 % (4.4-11.3); NEUTROPHILS # (AUTO) 3.9 (2.1-6.9); NEUTROPHILS % 55.9 % (38.7-80.0); PLATELET COUNT 356 x10e3/uL (140-360); RED BLOOD COUNT 4.59 x10e6/uL (3.6-5.1); RED CELL DISTRIBUTION WIDTH 13.4 % (11.7-14.4)
--- NOTE | 2020-07-31 22:03 | NUR ---
20 fr catheter not draining urine. pt noted c sp tenderness and lower abdomen distentetion. catheter exchanged per md orders. 16fr parekh catheter inserted by araceli lynch rn using sterile technique. 600cc cloudy urine return noted. md informed. pt states that tenderness resolved p catheter exchanged. no distention noted to abdomen p catheter exchange.
--- NOTE | 2020-07-31 22:07 | Emergency Department Note ---
History of Present Illnes History of Present Illness Chief Complaint: Genitourinary History of Present Illness This is a 89 year old female PRESENTS WITH C/O CRISTINA CATHETER NO DRAINING, LAST EMPTIED CRISTINA COLLECTION BAG AT 5 PM AND NO DRAINAGE SINCE. DENIES N/V/D . Historian: Patient Arrival Mode: Car Onset (how long ago): hour(s) (4) Location: CRISTINA CATH Quality: NOT DRAINING Radiation: Reports non-radiation Severity: mild Onset quality: gradual Duration (how long): hour(s) (4) Timing of current episode: constant Progression: unchanged Chronicity: recurrent Context: Denies recent illness, Denies recent surgery Relieving factors: none Exacerbating factors: none Associated symptoms: Reports denies other symptoms Treatments prior to arrival: none Past Medical/Family History Physician Review I have reviewed the patient's past medical and family history. Any updates have been documented here. 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 Past Surgical History: Cholecysctectomy, Appendectomy, Colon Resection Other Surgery: COLON SURGERY FOR POLYP REMOVAL AND "ABOUT A FOOT OF COLON REMOVED" PER PT Social History Smoking Cessation: Never Smoker Counseling Performed: No Alcohol Use: None Any Illegal Drug Use: No Other Last Tetanus: 2015 Review of Systems Review of Systems Constitutional: Reports no symptoms EENTM: Reports no symptoms Cardiovascular: Reports no symptoms Respiratory: Reports no symptoms Gastrointestinal: Reports no symptoms Genitourinary: Reports as per HPI Musculoskeletal: Reports no symptoms Integumentary: Reports no symptoms Neurological: Reports no symptoms Psychological: Reports no symptoms Endocrine: Reports no symptoms Hematological/Lymphatic: Reports no symptoms Physical Exam Related Data Allergies: Coded Allergies: Sulfa (Sulfonamide Antibiotics) (Verified Allergy, Unknown, STOMACH PROBLEMS, 10/10/18) codeine (Verified Allergy, Unknown, STOMACH PROBLEMS, 10/10/18) levofloxacin (Verified Adverse Reaction, Mild, NUMBING OF LIPS, FACIAL FLUSHING, 10/10/18) Triage Vital Signs Vital Signs Date Time Temp Pulse Resp B/P (MAP) Pulse Ox O2 Delivery O2 Flow Rate FiO2 07/31/20 21:35 97.8 101 20 196/88 100 Vital signs reviewed: Yes Physical Exam CONSTITUTIONAL Constitutional: Present well-developed, Present well-nourished HENT HENT: Present normocephalic, Present atraumatic, Present oropharynx clear/moist, Present nose normal HENT L/R: Present left ext ear normal, Present right ext ear normal EYES Eyes: Reports PERRL, Reports conjunctivae normal NECK Neck: Present ROM normal PULMONARY Pulmonary: Present effort normal, Present breath sounds normal CARDIOVASCULAR Cardiovascular: Present regular rhythm, Present heart sounds normal, Present capillary refill normal, Present normal rate GASTROINTESTINAL Abdominal: Present soft, Present bowel sounds normal, Present distension (BLADDER DISTENED ON EXAM), Present tender (SUPRAPUBIC) GENITOURINARY Genitourinary: Present other (INDWELLING CRISTINA CATHETER PRESENT, NO URINE IN COLLECTION BAG) SKIN Skin: Present warm, Present dry MUSCULOSKELETAL Musculoskeletal: Present ROM normal NEUROLOGICAL Neurological: Present alert, Present oriented x 3, Present no gross motor or sensory deficits PSYCHOLOGICAL Psychological: Present mood/affect normal, Present judgement normal Results Laboratory Result Diagram: 07/31/20 Laboratory Laboratory Tests Test 07/31/20 21:40 07/31/20 21:33 White Blood Count 7.02 x10e3/uL (4.8-10.8) Red Blood Count 4.59 x10e6/uL (3.6-5.1) Hemoglobin 13.0 g/dL (12.0-16.0) Hematocrit 38.8 % (34.2-44.1) Mean Corpuscular Volume 84.5 fL (81-99) Mean Corpuscular Hemoglobin 28.3 pg (28-32) Mean Corpuscular Hemoglobin Concent 33.5 g/dL (31-35) Red Cell Distribution Width 13.4 % (11.7-14.4) Platelet Count 356 x10e3/uL (140-360) Neutrophils (%) (Auto) 55.9 % (38.7-80.0) Lymphocytes (%) (Auto) 35.3 % (18.0-39.1) Monocytes (%) (Auto) 6.3 % (4.4-11.3) Eosinophils (%) (Auto) 1.9 % (0.0-6.0) Basophils (%) (Auto) 0.3 % (0.0-1.0) Neutrophils # (Auto) 3.9 (2.1-6.9) Lymphocytes # (Auto) 2.5 (1.0-3.2) Monocytes # (Auto) 0.4 (0.2-0.8) Eosinophils # (Auto) 0.1 (0.0-0.4) Basophils # (Auto) 0.0 (0.0-0.1) Absolute Immature Granulocyte (auto 0.02 x10e3/uL (0-0.1) Sodium Level 133 mmol/L (136-145) Potassium Level 3.6 mmol/L (3.5-5.1) Chloride Level 97 mmol/L (98-107) Carbon Dioxide Level 26 mmol/L (22-29) Anion Gap 13.6 mmol/L (8-16) Blood Urea Nitrogen 14 mg/dL (7-26) Creatinine 1.00 mg/dL (0.57-1.11) Estimat Glomerular Filtration Rate 52 ML/MIN (60-) BUN/Creatinine Ratio 14 (6-25) Glucose Level 113 mg/dL (74-118) Calcium Level 9.3 mg/dL (8.4-10.2) Urine Color Yellow (YELLOW) Urine Clarity Sl cloudy (CLEAR) Urine pH 6.5 (5 - 7) Urine Specific [place] 1.025 (1.010-1.025) Urine Protein Negative (NEGATIVE) Urine Glucose (UA) Negative (NEGATIVE) Urine Ketones Negative (NEGATIVE) Urine Blood Negative (NEGATIVE) Urine Nitrite Negative (NEGATIVE) Urine Bilirubin Negative (NEGATIVE) Urine Urobilinogen 0.2 mg/dL (0.2 - 1) Urine Leukocyte Esterase Moderate (NEGATIVE) Urine RBC 0-5 /HPF (0-5) Urine WBC >50 /HPF (0-5) Urine Epithelial Cells Rare /LPF (NONE) Urine Bacteria Many /HPF (NONE) Laboratory Tests Test 07/31/20 21:40 White Blood Count 7.02 x10e3/uL (4.8-10.8) Red Blood Count 4.59 x10e6/uL (3.6-5.1) Hemoglobin 13.0 g/dL (12.0-16.0) Hematocrit 38.8 % (34.2-44.1) Mean Corpuscular Volume 84.5 fL (81-99) Mean Corpuscular Hemoglobin 28.3 pg (28-32) Mean Corpuscular Hemoglobin Concent 33.5 g/dL (31-35) Red Cell Distribution Width 13.4 % (11.7-14.4) Platelet Count 356 x10e3/uL (140-360) Neutrophils (%) (Auto) 55.9 % (38.7-80.0) Lymphocytes (%) (Auto) 35.3 % (18.0-39.1) Monocytes (%) (Auto) 6.3 % (4.4-11.3) Eosinophils (%) (Auto) 1.9 % (0.0-6.0) Basophils (%) (Auto) 0.3 % (0.0-1.0) Neutrophils # (Auto) 3.9 (2.1-6.9) Lymphocytes # (Auto) 2.5 (1.0-3.2) Monocytes # (Auto) 0.4 (0.2-0.8) Eosinophils # (Auto) 0.1 (0.0-0.4) Basophils # (Auto) 0.0 (0.0-0.1) Absolute Immature Granulocyte (auto 0.02 x10e3/uL (0-0.1) Lab results reviewed: Yes Assessment & Plan Medical Decision Making MDM PT WITH URINARY RETENTION AND CRISTINA CATH NOT DRAINING CBC, BMP, UA, URINE CULTURE ORDERED TO EVAL FOR LEUKOCYTOSIS, RENAL INSUFFICIENCY, UTI, CRISTINA REPLACED AND 600 CC CLOUDY URINE OBTAINED pt with uti rocephin 1 gram iv ordered Assessment & Plan Final Impression: (1) Malfunction of Cristina catheter (2) Urinary retention (3) UTI (urinary tract infection) Depart Disposition: HOME, SELF-CARE Last Vital Signs Date Time Temp Pulse Resp B/P (MAP) Pulse Ox O2 Delivery O2 Flow Rate FiO2 07/31/20 21:35 97.8 101 20 196/88 100 Home Meds Active Scripts Nitrofurantoin Monohyd/M-Cryst (MACROBID 100 MG CAPSULE) 100 Mg Capsule, 100 MG PO BID for 10 Days, #20 Prov:SAAD OKEEFE DO 10/10/18 Reported Medications Ondansetron Hcl (ZOFRAN) 8 Mg Tablet, 4 MG PO Q6H PRN for NAUSEA 10/12/18 Cephalexin Monohydrate (KEFLEX) 500 Mg Capsule, 500 MG PO BID 10/12/18 Potassium Chloride (POTASSIUM CHLORIDE) 40 Meq/15 Ml Liquid, 15 ML PO DAILY 12/02/17 Triamterene/Hydrochlorothiazid (MAXZIDE 37.5 MG-25 MG TABLET) 1 Each Tablet, 37.5 MG PO DAILY, #30 05/28/17 Timolol (BETIMOL) 5 Ml Drops, 1 DROP OU BID 05/02/17 Ezetimibe (ZETIA) 10 Mg Tablet, 10 MG PO DAILY 11/14/13 Esomeprazole Magnesium (NEXIUM) 40 Mg Capsule., 40 MG PO DAILY 11/14/13 KENDY FUENTES MD Jul 31, 2020 22:07
[2020-07-31 22:17] LABS: ANION GAP 13.6 mmol/L (8-16); CALCIUM 9.3 mg/dL (8.4-10.2); POTASSIUM 3.6 mmol/L (3.5-5.1)
[2020-07-31 22:17] LABS: BILIRUBIN,URINE NEGATIVE (NEGATIVE); CLARITY,URINE SL CLOUDY (CLEAR); COLOR,URINE YELLOW (YELLOW); KETONES,URINE NEGATIVE (NEGATIVE); LEUKOCYTE ESTERASE ,URINE MODERATE (NEGATIVE); NITRITE,URINE NEGATIVE (NEGATIVE); PROTEIN,URINE DIPSTICK NEGATIVE (NEGATIVE); URINE UROBILINOGEN 0.2 mg/dL (0.2 - 1); WBC,URINE (MAN) >50 /HPF (0-5)
[2020-07-31 22:18] LABS: BACTERIA,URINE MANY /HPF; EPITHELIAL CELLS,URINE RARE /LPF; RBC,URINE 0-5 /HPF (0-5)
[2020-07-31] MEDS ORDERED: CEFTRIAXONE SOD 1 GM/NS 50 ML 50 ML IV ONE ×2 (22:30→22:36)
[2020-07-31 22:34] VITALS: BP 175/74
--- OUTSIDE RECORDS SUMMARY | 2020-07-31 23:28 | XMS REPORT | Continuity of Care Document ---
Author Author [facility] t Organization [facility] Address [address] [place] [address] Phone Unavailable Care Team Providers Care Stationary Steam Engineer Name Role Phone JAZLYN MELGOZA MD PCP Augustin COCHRAN Attphys Unavailable Deyvi SANTANA Attphys Unavailable Yunier ESCAMILLA Attphys Unavailable Trish HDZ Attphys Unavailable ARIANA CABRERA Attphys Unavailable Augustin COCHRAN Admphys Unavailable Payers Payer Name Policy Type Policy Number Effective Date Expiration Date [facility] [id number] 2016 00:00:00 [facility] Problems Condition Name Condition Details Condition Category Status Onset Date Resolution Date Last Treatment Date Treating Clinician Comments Source Dehydration Dehydration Problem Active [facility] Hypokalemia Hypokalemia Problem Active [facility] Retention of urine Urinary retention Problem Active [facility] Hypomagnesemia Hypomagnesemia Problem Active [facility] Hyponatremia Hyponatremia Problem Active [facility] Urinary tract infection UTI (urinary tract infection) Problem Active [facility] Vomiting Vomiting Problem Active [facility] Diverticulitis of intestine Diverticulitis Problem Active [facility] Allergies, Adverse Reactions, Alerts Allergy Name Allergy Type Status Severity Reaction(s) Onset Date Inacti ve Date Treating Clinician Comments Source Sulfa (Sulfonamide Antibiotics) Allergy to Substance Active STOMACH PROBLEMS 2018-10-10 00:00:00 [facility] Codeine Allergy to Substance Active STOMACH PROBLEMS 2018-10-10 00:00:00 [facility] Levofloxacin Propensity to adverse reactions Active Mild NUMBING OF LIPS, FACIAL FLUSHING 2018-10-10 00:00:00 [facility] Medications Ordered Medication Name Filled Medication Name Start Date Stop Da te Current Medication? Ordering Clinician Indication Dosage Frequency Signature (SIG) Comments Components Source Nitrofurantoin Monohyd/M-Cryst (Macrobid 100 Mg Capsul e) 100 Mg Capsule Nitrofurantoin Monohyd/M-Cryst (Macrobid 100 Mg Capsule) 100 Mg Capsule 2018-10-10 00:00:00 Yes Saad Lewisramiro Do 100 Twice A Day [facility] Cephalexin Monohydrate (Keflex) 500 Mg Capsule Cephale nela Monohydrate (Keflex) 500 Mg Capsule Yes 500 Twice A Day [facility] Esomeprazole Magnesium (Nexium) 40 Mg Capsule.dr Villafuerte prazole Magnesium (Nexium) 40 Mg Capsule. Yes 40 Daily [facility] Ezetimibe (Zetia) 10 Mg Tablet Ezetimibe (Zetia) 10 Mg Tablet Yes 10 Daily [facility] Ondansetron Hcl (Zofran) 8 Mg Tablet Ondansetron Hcl (Zofran) 8 Mg Tablet Yes 4 Every 6 Hours as needed for Nausea [facility] Potassium Chloride 40 Meq/15 Ml Liquid Potassium Chloride 40 Meq /15 Ml Liquid Yes 15 Daily [facility] Timolol (Betimol) 5 Ml Drops Timolol (Betimol) 5 Ml Drops Y es 1 Twice A Day [facility] Triamterene/Hydrochlorothiazid (Maxzide 37.5 Mg-25 Mg Tablet) 1 Each Tablet Triamterene/Hydrochlorothiazid (Maxzide 37.5 Mg-25 Mg Tablet) 1 Each Tablet Yes 37.5 Daily [facility] Cephalexin (Keflex) 250 Mg Capsule, 250 Mg Oral Cephal exin (Keflex) 250 Mg Capsule, 250 Mg Oral 2018-10-11 00:00:00 No 250 Thr ee Times A Day [facility] Nitrofurantoin Macrocrystal (Nitrofurantoin) 100 Mg Ca psule, 100 Mg Oral Nitrofurantoin Macrocrystal (Nitrofurantoin) 100 Mg Capsule, 100 Mg Oral 2018-01-16 00:00:00 No 100 Twice A Day [facility] Lisinopril 10 Mg Tablet, 5 Mg Oral Lisinopril 10 Mg Tablet, 5 Mg Oral 2018-01-10 00:00:00 No 5 Daily [facility] Hydrochlorothiazide 50 Mg Tablet, 50 Mg Oral Hydrochlo rothiazide 50 Mg Tablet, 50 Mg Oral 2017-12-02 00:00:00 No 50 Daily [facility] Metronidazole (Flagyl) 250 Mg Tablet, 500 Mg Oral Metr onidazole (Flagyl) 250 Mg Tablet, 500 Mg Oral 2017-12-02 00:00:00 No 500 Thre e Times A Day [facility] Cefuroxime Axetil (Ceftin) 250 Mg/5 Ml Susp.recon, 250 Mg Oral Cefuroxime Axetil (Ceftin) 250 Mg/5 Ml Susp.recon, 250 Mg Oral 2017-05-15 00:00:00 No 250 Twice A Day [facility] Procedures This patient has no known procedures. Encounters Start Date/Time End Date/Time Encounter Type Admission Type [facility] Care Department Encounter ID Source 2020-01-05 18:54:00 2020-01-05 21:10:00 Departed Emergency Room [facility] [id number] [facility] 2018-10-10 23:57:00 2018-10-12 10:28:00 Discharged Inpatient (obs) 1 MAC COCHRAN [facility] [id number] [facility] 2018-10-09 23:20:00 2018-10-10 01:57:00 Departed Emergency Room [facility] [id number] [facility] 2018-06-08 20:36:00 2018-06-08 23:44:00 Departed Emergency Room 1 ORLY SANTANA [facility] [id number] [facility] 2018-02-20 14:03:00 2018-02-20 16:36:00 Departed Emergency Room 1 MARIO ESCAMILLA [facility] [id number] [facility] 2018-01-13 11:32:00 2018-01-16 10:13:00 Discharged Inpatient ER ORLY SANTANA [facility] [id number] [facility] 2017-12-01 16:24:00 2017-12-06 10:48:00 Discharged Inpatient ER MARIO ESCAMILLA [facility] [id number] [facility] 2017-05-27 15:48:00 2017-05-28 10:11:00 Discharged Inpatient ER TAWANNA HDZ [facility] [id number] [facility] 2017-05-10 10:47:00 2017-05-15 09:19:00 Discharged Inpatient ER TAWANNA HDZ [facility] [id number] [facility] 2017-05-02 21:08:00 2017-05-07 11:00:00 Discharged Inpatient ER ARIANA CABRERA [facility] [id number] [facility] Results Test Description Test Time Test Comments Results Result Comments Source Urine WBC 2020-01-05 20:44:00 Test Item Urine WBC (test code = 5821-4) 21-50 0-5 [facility] [id number] 20:44:00* Test Item Value Reference Range Interpretation Comments Urine RBC (test code = 39553-8) 6-10 0-5 H [facility] Ujabepks8370-17-54 20:44:00* Test Item Value Reference Range Interpretation Comments Urine Bacteria (test code = 92127-3) MANY NONE H [facility] Epithelial Gyhqh0367-15-15 20:44:00 * Test Item Value Reference Range Interpretation Comments Urine Epithelial Cells (test code = 21743-9) NONE NONE [facility] Amorphous Dvvumigm9518-73-01 20:44:00* Test Item Value Reference Range Interpretation Comments Urine Amorphous Sediment (test code = 8246-1) MODERATE FEW H [facility] Hzhob9304-53-66 20:27:00* Test Item Value Reference Range Interpretation Comments Urine Color (test code = 5778-6) YELLOW YELLOW [facility] Fgfxsct0169-05-24 20:27:00* Test Item Value Reference Range Interpretation Comments Urine Clarity (test code = 72250-7) SL CLOUDY CLEAR [facility] Specific Uiuzjyw2042-96-73 20:27:00 * Test Item Value Reference Range Interpretation Comments Urine Specific Derwent (test code = 5811-5) 1.025 1.010-1.02 5 [facility] [id number] 20:27:00* Test Item Value Reference Range Interpretation Comments Urine pH (test code = 28959-0) 7.5 5-7 [facility] Leukocyte Zkbkjoyh1435-72-49 20:27:00* Test Item Value Reference Range Interpretation Comments Urine Leukocyte Esterase (test code = 5799-2) LARGE NEGATIVE [facility] Ngcliun5513-72-04 20:27:00* Test Item Value Reference Range Interpretation Comments Urine Nitrite (test code = 11017-0) POSITIVE NEGATIVE H [facility] Tauvwgg7597-83-67 20:27:00* Test Item Value Reference Range Interpretation Comments Urine Protein (test code = 5804-0) NEGATIVE NEGATIVE [facility] Glucose (UA)2020-01-05 20:27:00* Test Item Value Reference Range Interpretation Comments Urine Glucose (UA) (test code = 2349-9) NEGATIVE NEGATIVE [facility] Qfqjdid8849-14-43 20:27:00* Test Item Value Reference Range Interpretation Comments Urine Ketones (test code = 64133-7) NEGATIVE NEGATIVE [facility] Pcnxtgotbzpf8921-22-39 20:27:00* Test Item Value Reference Range Interpretation Comments Urine Urobilinogen (test code = 56187-5) 0.2 0.2-1 [facility] Gcdnmfwlv9096-81-32 20:27:00* Test Item Value Reference Range Interpretation Comments Urine Bilirubin (test code = 1978-6) NEGATIVE NEGATIVE [facility] Ugcoj5265-24-45 20:27:00* Test Item Value Reference Range Interpretation Comments Urine Blood (test code = 84682-7) TRACE NEGATIVE H [facility] Ojaeuvu1790-52-52 10:22:00* Test Item Value Reference Range Interpretation Comments Urine Culture (test code = 630-4) Organism: GRAM NEGATIVE [facility] Xpdxc8436-02-28 05:14:00* Test Item Value Reference Range Interpretation Comments Sodium Level (test code = 2951-2) 132 136-145 L [facility]Potassium Aizpv5043-60-48 05:14:00* Test Item Value Reference Range Interpretation Comments Potassium Level (test code = 2823-3) 3.1 3.5-5.1 L [facility] HospitalChloride Cpbne7607-45-43 05:14:00* Test Item Value Reference Range Interpretation Comments Chloride Level (test code = 2075-0) 95 98-107 L [facility] HospitalCarbon Dioxide Yfhxs1278-73-59 05:14:00* Test Item Value Reference Range Interpretation Comments Carbon Dioxide Level (test code = 2028-9) 23 22-29 [facility] HospitalAnion Ptr2855-79-47 05:14:00* Test Item Value Reference Range Interpretation Comments Anion Gap (test code = 96184-3) 17.1 8-16 H [facility] HospitalBlood Urea Rgnehpjt0701-37-99 05:14:00* Test Item Value Reference Range Interpretation Comments Blood Urea Nitrogen (test code = 3094-0) 10 04-10 [facility] HospitalCreatinine2019-01-26 05:14:00* Test Item Value Reference Range Interpretation Comments Creatinine (test code = 2160-0) 0.83 0.57-1.11 [facility] HospitalBUN/Creatinine Inaei4838-98-85 05:14:00* Test Item Value Reference Range Interpretation Comments BUN/Creatinine Ratio (test code = 3097-3) 12 03-10 [facility] HospitalEstimat Glomerular Filtration Rate 2018-10-11 05:14:00* Test Item Value Reference Range Interpretation Comments Estimat Glomerular Filtration Rate (test code = 456766776) > 60 >60 Ranges were taken from the National Kidney Disease Education Program and the [facility] literature.Reference ranges:60 or greater: Ooproy07-01 ( for 3 consecutive months): Chronic kidney disease 15 or less: Kidney failureFormerly [facility] HospitalGlucose Kgxnq1726-25-58 05:14:00* Test Item Value Reference Range Interpretation Comments Glucose Level (test code = ZPA1205) 111 74-118 [facility] HospitalCalcium Qvipd5272-17-20 05:14:00* Test Item Value Reference Range Interpretation Comments Calcium Level (test code = 09695-2) 8.8 8.4-10.2 [facility] HospitalTotal Ytnzervsb4053-64-14 05:14:00* Test Item Value Reference Range Interpretation Comments Total Bilirubin (test code = 1975-2) 0.8 0.2-1.2 [facility] HospitalAspartate Amino Transf (AST/SGOT) 2018-10-11 05:14:00* Test Item Value Reference Range Interpretation Comments Aspartate Amino Transf (AST/SGOT) (test code = Aspartate Amino Transf (AST/SGOT)) 46 5-34 H [facility] HospitalAlanine Aminotransferase (ALT/SGPT) 2018-10-11 05:14:00* Test Item Value Reference Range Interpretation Comments Alanine Aminotransferase (ALT/SGPT) (test code = 1742-6) 25 0-55 [facility] HospitalTotal Aafnvxz4977-85-53 05:14:00* Test Item Value Reference Range Interpretation Comments Total Protein (test code = 2885-2) 6.1 6.5-8.1 L [facility] HospitalAlbumin2019-01-26 05:14:00* Test Item Value Reference Range Interpretation Comments Albumin (test code = 1751-7) 3.4 3.5-5.0 L [facility] HospitalGlobulin2019-01-26 05:14:00* Test Item Value Reference Range Interpretation Comments Globulin (test code = 45715-1) 2.7 2.3-3.5 [facility] HospitalAlbumin/Globulin Oehmc9511-71-54 05:14:00 * Test Item Value Reference Range Interpretation Comments Albumin/Globulin Ratio (test code = 1759-0) 1.3 0.8-2.0 [facility] HospitalAlkaline Hoyofrfdglv5941-66-00 05:14:00* Test Item Value Reference Range Interpretation Comments Alkaline Phosphatase (test code = 6768-6) 75 40-150 [facility] HospitalWhite Blood Prnpn4721-78-40 04:56:00* Test Item Value Reference Range Interpretation Comments White Blood Count (test code = 6690-2) 10.38 4.8-10.8 [facility] HospitalRed Blood Iytjo5678-77-34 04:56:00* Test Item Value Reference Range Interpretation Comments Red Blood Count (test code = 789-8) 3.92 3.6-5.1 [facility] HospitalHemoglobin2019-01-26 04:56:00* Test Item Value Reference Range Interpretation Comments Hemoglobin (test code = 41530-9) 12.0 12.0-16.0 [facility] HospitalHematocrit2019-01-26 04:56:00* Test Item Value Reference Range Interpretation Comments Hematocrit (test code = 4544-3) 32.4 34.2-44.1 L [facility] HospitalMean Corpuscular Yhdlkb9449-69-29 04:56:00* Test Item Value Reference Range Interpretation Comments Mean Corpuscular Volume (test code = 787-2) 82.7 81-99 [facility] HospitalMean Corpuscular Kvcmmmqvcp7935-80-65 04:56:00* Test Item Value Reference Range Interpretation Comments Mean Corpuscular Hemoglobin (test code = 785-6) 30.6 28-32 [facility] Hemoglobin Concent 2018-10-11 04:56:00* Test Item Value Reference Range Interpretation Comments Mean Corpuscular Hemoglobin Concent (test code = 786-4) 37.0 31-35 H [facility] HospitalRed Cell Distribution Dmkbr0707-99-27 04:56:00* Test Item Value Reference Range Interpretation Comments Red Cell Distribution Width (test code = 73255-1) 12.7 11.7 -14.4 [facility] HospitalPlatelet Qdzvv7714-45-79 04:56:00* Test Item Value Reference Range Interpretation Comments Platelet Count (test code = 777-3) 238 140-360 [facility] HospitalNeutrophils (%) (Auto)2018-10-11 04:56:00 * Test Item Value Reference Range Interpretation Comments Neutrophils (%) (Auto) (test code = 54868-4) 91.7 38.7-80.0 H [facility] HospitalLymphocytes (%) (Auto)2018-10-11 04:56:00 * Test Item Value Reference Range Interpretation Comments Lymphocytes (%) (Auto) (test code = 736-9) 4.6 18.0-39.1 L [facility] HospitalMonocytes (%) (Auto)2018-10-11 04:56:00* Test Item Value Reference Range Interpretation Comments Monocytes (%) (Auto) (test code = 5905-5) 2.8 4.4-11.3 L [facility] HospitalEosinophils (%) (Auto)2018-10-11 04:56:00 * Test Item Value Reference Range Interpretation Comments Eosinophils (%) (Auto) (test code = 713-8) 0.3 0.0-6.0 [facility] HospitalBasophils (%) (Auto)2018-10-11 04:56:00* Test Item Value Reference Range Interpretation Comments Basophils (%) (Auto) (test code = 706-2) 0.2 0.0-1.0 [facility] HospitalIM GRANULOCYTES %2018-10-11 04:56:00* Test Item Value Reference Range Interpretation Comments IM GRANULOCYTES % (test code = IM GRANULOCYTES %) 0.4 0.0- 1.0 [facility] HospitalNeutrophils # (Auto)2018-10-11 04:56:00* Test Item Value Reference Range Interpretation Comments Neutrophils # (Auto) (test code = 751-8) 9.5 2.1-6.9 H [facility] HospitalLymphocytes # (Auto)2018-10-11 04:56:00* Test Item Value Reference Range Interpretation Comments Lymphocytes # (Auto) (test code = 04261-8) 0.5 1.0-3.2 L [facility] HospitalMonocytes # (Auto)2018-10-11 04:56:00* Test Item Value Reference Range Interpretation Comments Monocytes # (Auto) (test code = 742-7) 0.3 0.2-0.8 [facility] HospitalEosinophils # (Auto)2018-10-11 04:56:00* Test Item Value Reference Range Interpretation Comments Eosinophils # (Auto) (test code = 711-2) 0.0 0.0-0.4 [facility] HospitalBasophils # (Auto)2018-10-11 04:56:00* Test Item Value Reference Range Interpretation Comments Basophils # (Auto) (test code = 704-7) 0.0 0.0-0.1 [facility] HospitalAbsolute Immature Granulocyte (auto 2018-10-11 04:56:00* Test Item Value Reference Range Interpretation Comments Absolute Immature Granulocyte (auto (asia t code = Absolute Immature Granulocyte (auto) 0.04 0-0.1 [facility] HospitalCT [facility]BDOMEN/PELVIS KV2552-36-28 00:00:00 [facility] [address] [place] [address] Patient Name: MIRELLA FINLEY MR #: [id number] : 1930 Age/Sex: 88/F Req #: [id number] Adm Physician: MAC COCHRAN MD Ordered by: SAAD DING MD Report #: [id number] Location: [facility] Room/Bed: [place] [address] Procedure: [id number] CT/CT ABDOMEN/PELVIS WO Exam Date: Exam Time: REPORT STATUS: Signed EXAM: CT Abdom en and Pelvis WITHOUT contrast INDICATION: FEVER, NAUSEA, DX'D WITH CYSTITIS /UTI LAST NIGHT Y COMPARISON: CT abdomen and pelvis 12/01/2017. TECHNIQUE : Abdomen and pelvis were scanned utilizing a multidetector helical scanner fr om the lung base to the pubic symphysis without administration of IV contrast. Absence of intravenous contrast decreases sensitivity for detection of focal lesions and vascular pathology. Coronal and sagittal reformations were obtaine d. Routine protocol was performed. IV CONTRAST: None ORAL CONTRAS T: Water COMPLICATIONS: None RADIATION DOSE: Total DLP: 171.3 mGy*cm Estimated effective dose: (DLP x 0.015 x size factor) m Sv Dose modulation, iterative reconstruction, and/or weight based adjustm ent of the mA/kV was utilized to reduce the radiation dose to as low as reason ably achievable. FINDINGS: LINES and TUBES: Johnson catheter within t he bladder. LOWER THORAX: Unremarkable HEPATOBILIARY: No focal h epatic lesions. No biliary ductal dilation. GALLBLADDER: No radio-opaque s tones or sludge. No wall thickening. SPLEEN: No splenomegaly. PANCRE : No focal masses or ductal dilatation. ADRENALS: No adrenal nodules KIDNEYS/URETERS: No hydronephrosis. No cystic or solid mass lesions. No stones. Punctate cortical calcification in the midpole of the right kidney. GI TRACT: No abnormal distention, wall thickening, or evidence of bowel ob struction. Right hemicolectomy. There are diverticula within the colon withou t evidence of diverticulitis. Appendix is normal. PELVIC ORGANS/BLADDER: F oley catheter. Otherwise, unremarkable. LYMPH NODES: No lymphadenopathy. VESSELS: There is moderate atherosclerotic disease in the aorta and major a rterial branches. PERITONEUM / RETROPERITONEUM: No free air or fluid. BONES: Osseous demineralization. Age-indeterminate compression deformity of L3, new from at least 12/01/2017, approximately 40% loss of height. SOFT TISSU ES: Unremarkable. IMPRESSION: 1. No acute abnormalities in the abdomen or pelvis. 2. Colonic diverticulosis. 3. Right hemicolectomy. 4. Age-indeterminate L3 compression deformity. Signed by: DR. Yosef thrasher MD on 10/11/2018 12:15 AM Dictated By: YOSEF BARLOW MD Electronical ly Signed By: YOSEF BARLOW MD on 10/11/1814 Transcribed By: MARY on 09/17 COPY TO: SAAD DING MD Urine Ostxr7960-62-06 00:49:00* Test Item Value Reference Range Interpretation Comments Urine Color (test code = 5778-6) YELLOW YELLOW [facility] Tmjoztg5405-44-65 00:49:00* Test Item Value Reference Range Interpretation Comments Urine Clarity (test code = 94344-6) CLOUDY CLEAR H [facility] HospitalUrine Specific Ceutlsa5863-04-46 00:49:00 * Test Item Value Reference Range Interpretation Comments Urine Specific Derwent (test code = 5811-5) 1.015 1.010-1.02 5 [facility] [id number] 00:49:00* Test Item Value Reference Range Interpretation Comments Urine pH (test code = 78299-5) 7 5-7 [facility] Leukocyte Vxodlkvy6277-57-22 00:49:00* Test Item Value Reference Range Interpretation Comments Urine Leukocyte Esterase (test code = 5799-2) 2+ [facility]GATIVE [facility] Ipwfnzu2577-93-91 00:49:00* Test Item Value Reference Range Interpretation Comments Urine Nitrite (test code = 26829-1) POSITIVE NEGATIVE [facility] Ikxjzop0410-24-48 00:49:00* Test Item Value Reference Range Interpretation Comments Urine Protein (test code = 5804-0) 1+ NEGATIVE [facility] Glucose (UA)2018-10-10 00:49:00* Test Item Value Reference Range Interpretation Comments Urine Glucose (UA) (test code = 2349-9) NEGATIVE NEGATIVE [facility] Fadxyhd7830-86-00 00:49:00* Test Item Value Reference Range Interpretation Comments Urine Ketones (test code = 59640-0) NEGATIVE NEGATIVE [facility] HospitalU[facility] Vambhzkyzepa1383-37-41 00:49:00* Test Item Value Reference Range Interpretation Comments Urine Urobilinogen (test code = 11213-0) 0.2 0.2-1 [facility] Sbaxyggns3236-14-38 00:49:00* Test Item Value Reference Range Interpretation Comments Urine Bilirubin (test code = 1978-6) NEGATIVE NEGATIVE [facility] Jkdbq8659-56-91 00:49:00* Test Item Value Reference Range Interpretation Comments Urine Blood (test code = 37570-2) TRACE NEGATIVE H [facility] JVK0590-01-00 00:49:00* Test Item Value Reference Range Interpretation Comments Urine WBC (test code = 5821-4) 21-50 0-5 H [facility] YZA1171-75-88 00:49:00* Test Item Value Reference Range Interpretation Comments Urine RBC (test code = 47550-6) 6-10 0-5 H [facility] Ifbhqusr8334-72-22 00:49:00* Test Item Value Reference Range Interpretation Comments Urine Bacteria (test code = 74836-7) MANY NONE H [facility] Epithelial Fjedd9316-16-72 00:49:00 * Test Item Value Reference Range Interpretation Comments Urine Epithelial Cells (test code = 85572-9) FEW NONE [facility] Amorphous Xgigeuhg3737-39-20 00:49:00* Test Item Value Reference Range Interpretation Comments Urine Amorphous Sediment (test code = 8246-1) MODERATE FEW H [facility] Uvpap4144-24-28 00:49:00* Test Item Value Reference Range Interpretation Comments Urine Color (test code = 5778-6) YELLOW YELLOW [facility] Crvaqwz9794-63-33 00:49:00* Test Item Value Reference Range Interpretation Comments Urine Clarity (test code = 91385-0) CLOUDY CLEAR H [facility] Specific Xqxizpc3539-34-51 00:49:00 * Test Item Value Reference Range Interpretation Comments Urine Specific Derwent (test code = 5811-5) 1.015 1.010-1.02 5 [facility] nM6480-41-07 00:49:00* Test Item Value Reference Range Interpretation Comments Urine pH (test code = 90305-7) 7 5-7 [facility] Leukocyte Efkeeckh8526-86-35 00:49:00* Test Item Value Reference Range Interpretation Comments Urine Leukocyte Esterase (test code = 5799-2) 2+ NEGATIVE H [facility] Wdouqyr7759-81-89 00:49:00* Test Item Value Reference Range Interpretation Comments Urine Nitrite (test code = 64597-6) POSITIVE NEGATIVE H [facility] Yxqtnjz0993-57-14 00:49:00* Test Item Value Reference Range Interpretation Comments Urine Protein (test code = 5804-0) 1+ NEGATIVE H [facility] Glucose (UA)2018-10-10 00:49:00* Test Item Value Reference Range Interpretation Comments Urine Glucose (UA) (test code = 2349-9) NEGATIVE NEGATIVE [facility] Lvrmvqf4395-41-02 00:49:00* Test Item Value Reference Range Interpretation Comments Urine Ketones (test code = 59221-5) NEGATIVE NEGATIVE [facility] Zvhroyjwffmu9473-37-46 00:49:00* Test Item Value Reference Range Interpretation Comments Urine Urobilinogen (test code = 94177-1) 0.2 0.2-1 [facility] Rfankrzgz5966-25-72 00:49:00* Test Item Value Reference Range Interpretation Comments Urine Bilirubin (test code = 1978-6) NEGATIVE NEGATIVE [facility] Nukmy1681-65-86 00:49:00* Test Item Value Reference Range Interpretation Comments Urine Blood (test code = 58478-8) TRACE NEGATIVE H [facility] OTA4077-21-49 00:49:00* Test Item Value Reference Range Interpretation Comments Urine WBC (test code = 5821-4) 21-50 0-5 H [facility] SUB5293-80-83 00:49:00* Test Item Value Reference Range Interpretation Comments Urine RBC (test code = 50387-9) 6-10 0-5 H [facility] Sjbihsze2623-27-20 00:49:00* Test Item Value Reference Range Interpretation Comments Urine Bacteria (test code = 51386-6) MANY NONE H [facility] Epithelial Bpjse5408-20-18 00:49:00 * Test Item Value Reference Range Interpretation Comments Urine Epithelial Cells (test code = 68516-3) FEW NONE [facility] Amorphous Recyznga7532-84-83 00:49:00* Test Item Value Reference Range Interpretation Comments Urine Amorphous Sediment (test code = 8246-1) MODERATE FEW H [facility] ([facility]UB)2018-06-08 21:57:00 [place] [address] Patient Name: MIRELLA FINLEY MR #: [id number] : 0 1930 Age/Sex: 87/F Req #: [id number] Adm Physician: Ordered by: ORLY SANTANA MD Report #: [id number] Location: ER Room/Bed: Procedure: [id number] DX/ABDOMEN-1VIEW (KUB) Exam Da te: 06/08/18 Exam Time: 2149 REPORT STATUS: Sig rian EXAM: ABDOMEN-1VIEW (KUB) INDICATION: Constipated, no bowel movement COMPARISON: None FINDINGS: LINES/TUBES: None BOWEL PATTERN: No marsha dence for obstruction. Surgical sutures right lower quadrant of the abdomen. SOFT TISSUES: No abnormal calcifications. Right upper quadrant cholecystecto my clips. LUNG BASES: No consolidations. BONES: No acute findings. IMPRESSION: Moderate amount of retained stool without obstruction. Signed by: Dr. Josiah Garcia M.D. on 06/08/2018 9:59 PM Dic tated By: JOSIAH GARCIA MD 58 COPY TO: ORLY SANTANA MD CT MAXIO FAC/PARANAS [id number] 15:11:00 [place] [address] Patient Name: MIRELLA FINLEY MR #: [id number] : 1930 Age/Sex: 87/F Req #: [id number] Adm Physician: Ordered by: MARIO ESCAMILLA MD Report #: [id number] Location: ER Room/Bed: Procedure: [id number] CT/CT MAXIO FAC/PARANAS WO E xam Date: 02/20/18 Exam Time: 1430 REPORT STATU S: Signed Exams: Head, cervical spine and maxilla facial CTs without IV contr ast History: Trauma, fall Comparison studies: None Technique: Axial i mages were obtained to the vertex and maxillofacial region. Coronal and sagitt al images reconstructed from the axial data. Intravenous contrast: None F indings: Brain: Scalp: Right frontal scalp hematoma. Bones: No fract ures, blastic or lytic lesions. Brain sulci: Moderately prominent. Moderate compensatory dilatation Ventricles: Normal in size and configuration. No hydr ocephalus. Parenchyma: No mass, acute hemorrhage or acute or chronic cor tical vascular insults. A few scattered and mildly confluent-appearing periven tricular hypodensities in the supratentorial white matter are nonspecific but most compatible with chronic small vessel ischemic changes. Sellar/supras ellar region: No abnormalities Craniocervical junction: Patent foramen magnum. No Chiari one malformation. Maxillofacial CT: Evaluation of the oral cavity is limited by metallic dental artifact related to dental implants. Soft tissues: Right frontal scalp hematoma. Bones: No fractures. Demineralization bones. Orbits: Globes are intact. There are bilateral i ntraocular lens replacements. No intraconal or extraconal abnormalities. Paranasal sinuses: Clear. Cervical spine: Fractures: None. Soft ti ssue injuries: No gross acute abnormalities. Atlantoaxial articulation: Int act. Alignment: Straightened curvature may be positional. No subluxations. Cervicomedullary junction: No abnormalities. Patent foramen magnum. Soft tissues: No gross acute abnormalities. Vertebrae: Demineralized bones. No evidence of infection or neoplasm. Degenerative changes: Multilevel d isc degeneration, worse/moderate at C4-C5. Disc osteophyte complexes from C3-C 4 to C6-C7 and mild multifocal ossification the posterior longitudinal ligamen t do not result in significant canal stenosis. Varying degrees of mild to mode rate multilevel facet arthrosis. Multilevel uncovertebral and facet arthrosis result in multilevel foraminal stenosis (mild right at C3-C4, moderate left an d mild right at C4-C5, mild bilaterally at C5-C6 and severe right and moderate left at C6-C7). Incidental findings: Scattered calcified atherosclero sis (origins of the bilateral vertebral arteries, V1 and V2 segments of the ri ght vertebral artery, intradural V4 segment of the left vertebral artery, left carotid bulb, bilateral cervical internal carotid arteries and in the carotid siphons). Right thyroid lobe 4 mm nodule or cyst for which no further workup is indicated. IMPRESSION: Head CT: 1. Right frontal scalp hematom a without underlying fracture. 2. No acute intracranial abnormalities. 3. Mild general cerebral volume loss. 4. Mild to moderate chronic microvascular ischemic changes. Maxillofacial CT: 1. Right frontal scalp hematoma as a melodie. 2. No maxillofacial fractures or other acute abnormalities. Cervic al spine CT: 1. No acute abnormalities. 2. Multilevel degenerative changes as described. 3. Cannot adequately evaluate ligament, spinal cord and or vas cular abnormalities cannot be excluded on the basis of this examination. Signed by: Dr. John Tovar M.D. on 02/20/2018 3:42 PM Dictated By: JOHN TOVAR MD 1542 Tr anscribed By: MARY on 02/20/18 1542 COPY TO: MARIO ESCAMILLA MD CT CERVICAL SPINE [id number] 15:11:00 [place] [address] Patient Name: MIRELLA FINLEY MR #: [id number] : 1930 Age/Sex: 87/F Req #: [id number] Adm Physician: Ordered by: MARIO ESCAMILLA MD Report #: [id number] Location: ER Room/Bed: Procedure: [id number] CT/CT CERVICAL SPINE WO Exam Date: 02/20/18 Exam Time: 1430 REPORT STATUS: Signed Exams: Head, cervical spine and maxilla facial CTs without IV contrast History: Trauma, fall Comparison studies: None Technique: Axial imag es were obtained to the vertex and maxillofacial region. Coronal and sagittal images reconstructed from the axial data. Intravenous contrast: None Find ings: Brain: Scalp: Right frontal scalp hematoma. Bones: No fracture s, blastic or lytic lesions. Brain sulci: Moderately prominent. Moderate co mpensatory dilatation Ventricles: Normal in size and configuration. No hydroce phalus. Parenchyma: No mass, acute hemorrhage or acute or chronic cortic al vascular insults. A few scattered and mildly confluent-appearing periventri cular hypodensities in the supratentorial white matter are nonspecific but mos t compatible with chronic small vessel ischemic changes. Sellar/suprasell ar region: No abnormalities Craniocervical junction: Patent foramen magnum. No Chiari one malformation. Maxillofacial CT: Evaluation of the oral ca vity is limited by metallic dental artifact related to dental implants. S oft tissues: Right frontal scalp hematoma. Bones: No fractures. Dem ineralization bones. Orbits: Globes are intact. There are bilateral intr aocular lens replacements. No intraconal or extraconal abnormalities. Par anasal sinuses: Clear. Cervical spine: Fractures: None. Soft tissu e injuries: No gross acute abnormalities. Atlantoaxial articulation: Intact . Alignment: Straightened curvature may be positional. No subluxations. C ervicomedullary junction: No abnormalities. Patent foramen magnum. Soft tis sues: No gross acute abnormalities. Vertebrae: Demineralized bones. No evidence of infection or neoplasm. Degenerative changes: Multilevel disc degeneration, worse/moderate at C4-C5. Disc osteophyte complexes from C3-C4 to C6-C7 and mild multifocal ossification the posterior longitudinal ligament do not result in significant canal stenosis. Varying degrees of mild to moderate multilevel facet arthrosis. Multilevel uncovertebral and facet arthrosis res ult in multilevel foraminal stenosis (mild right at C3-C4, moderate left and m ild right at C4-C5, mild bilaterally at C5-C6 and severe right and moderate le ft at C6-C7). Incidental findings: Scattered calcified atherosclerosis (origins of the bilateral vertebral arteries, V1 and V2 segments of the right vertebral artery, intradural V4 segment of the left vertebral artery, left ca rotid bulb, bilateral cervical internal carotid arteries and in the carotid si phons). Right thyroid lobe 4 mm nodule or cyst for which no further workup is indicated. IMPRESSION: Head CT: 1. Right frontal scalp hematoma w ithout underlying fracture. 2. No acute intracranial abnormalities. 3. Mil d general cerebral volume loss. 4. Mild to moderate chronic microvascular isc hemic changes. Maxillofacial CT: 1. Right frontal scalp hematoma as abov e. 2. No maxillofacial fractures or other acute abnormalities. Cervical spine CT: 1. No acute abnormalities. 2. Multilevel degenerative changes as described. 3. Cannot adequately evaluate ligament, spinal cord and or vascul ar abnormalities cannot be excluded on the basis of this examination. Sig rian by: Dr. John Tovar M.D. on 02/20/2018 3:42 PM Dictated By: JOHN TOVAR MD 1544 Trans cribed By: MARY on 02/20/18 1542 COPY TO: MARIO ESCAMILLA MD CT BRAIN [id number] 15:11:00 [facility] [address] [place] [address] Patient Name: MIRELLA FINLEY MR #: [id number] : 1930 Age/Sex: 87/F Req #: [id number] Adm Physician: Ordered by: MARIO ESCAMILLA MD Report #: [id number] Location: ER Room/Bed: Procedure: [id number] CT/CT BRAIN WO Exam Date: Exam Time: 1430 REPORT STATUS: Signed Exams: Head, cervical spine and maxilla facial CTs without IV contrast Histor y: Trauma, fall Comparison studies: None Technique: Axial images were o btained to the vertex and maxillofacial region. Coronal and sagittal images re constructed from the axial data. Intravenous contrast: None Findings: Brain: Scalp: Right frontal scalp hematoma. Bones: No fractures, blastic or lytic lesions. Brain sulci: Moderately prominent. Moderate compensatory dilatation Ventricles: Normal in size and configuration. No hydrocephalus. Parenchyma: No mass, acute hemorrhage or acute or chronic cortical vascular insults. A few scattered and mildly confluent-appearing periventricular hyp odensities in the supratentorial white matter are nonspecific but most compati ble with chronic small vessel ischemic changes. Sellar/suprasellar region : No abnormalities Craniocervical junction: Patent foramen magnum. No Chiari o ne malformation. Maxillofacial CT: Evaluation of the oral cavity is l imited by metallic dental artifact related to dental implants. Soft tissu es: Right frontal scalp hematoma. Bones: No fractures. Demineraliza tion bones. Orbits: Globes are intact. There are bilateral intraocular l ens replacements. No intraconal or extraconal abnormalities. Paranasal si nuses: Clear. Cervical spine: Fractures: None. Soft tissue injurie s: No gross acute abnormalities. Atlantoaxial articulation: Intact. Align ment: Straightened curvature may be positional. No subluxations. Cervicomed ullary junction: No abnormalities. Patent foramen magnum. Soft tissues: No gross acute abnormalities. Vertebrae: Demineralized bones. No evidence of infection or neoplasm. Degenerative changes: Multilevel disc degenera tion, worse/moderate at C4-C5. Disc osteophyte complexes from C3-C4 to C6-C7 a nd mild multifocal ossification the posterior longitudinal ligament do not res ult in significant canal stenosis. Varying degrees of mild to moderate multile kiya facet arthrosis. Multilevel uncovertebral and facet arthrosis result in mu ltilevel foraminal stenosis (mild right at C3-C4, moderate left and mild right at C4-C5, mild bilaterally at C5-C6 and severe right and moderate left at C6- C7). Incidental findings: Scattered calcified atherosclerosis (origins of the bilateral vertebral arteries, V1 and V2 segments of the right vertebral artery, intradural V4 segment of the left vertebral artery, left carotid bulb, bilateral cervical internal carotid arteries and in the carotid siphons). R ight thyroid lobe 4 mm nodule or cyst for which no further workup is indicated . IMPRESSION: Head CT: 1. Right frontal scalp hematoma without un derlying fracture. 2. No acute intracranial abnormalities. 3. Mild general cerebral volume loss. 4. Mild to moderate chronic microvascular ischemic siria nges. Maxillofacial CT: 1. Right frontal scalp hematoma as above. 2. No maxillofacial fractures or other acute abnormalities. Cervical spine CT: 1. No acute abnormalities. 2. Multilevel degenerative changes as describe d. 3. Cannot adequately evaluate ligament, spinal cord and or vascular abno rmalities cannot be excluded on the basis of this examination. Signed by: Trish Tovar M.D. on 02/20/2018 3:42 PM Dictated By: JOHN Chambers 41 Transcribed By : MARY on 02/20/181541 COPY TO: MARIO ESCAMILLA MD Magnesium Dzgsb6334-43-02 07:20:00* Test Item Value Reference Range Interpretation Comments Magnesium Level (test code = 06087-6) 1.2 1.3-2.1 L [facility] Xyyhu7878-99-29 07:20:00* Test Item Value Reference Range Interpretation Comments Magnesium Level (test code = 11826-5) 1.2 1.3-2.[address] [facility] [address] Oaduo2970-94-42 07:20:00* Test Item Value Reference Range Interpretation Comments Magnesium Level (test code = 36155-7) 1.2 1.3-2.[address] [facility] Upwhy3569-73-67 07:20:00* Test Item Value Reference Range Interpretation Comments Magnesium Level (test code = 06886-1) 1.2 1.3-2.[address] [facility] Kukwf6768-82-33 07:20:00* Test Item Value Reference Range Interpretation Comments Magnesium Level (test code = 28216-7) 1.2 1.3-2.1 L [facility] Fueur1320-25-75 07:17:00* Test Item Value Reference Range Interpretation Comments Sodium Level (test code = 2951-2) 133 136-145 L [facility]Potassium Etipt6940-13-22 07:17:00* Test Item Value Reference Range Interpretation Comments Potassium Level (test code = 2823-3) 3.6 3.5-5.1 [facility] HospitalChloride Nrtat1326-19-99 07:17:00* Test Item Value Reference Range Interpretation Comments Chloride Level (test code = 2075-0) 95 98-107 L [facility] HospitalCarbon Dioxide Pfhjv8309-79-34 07:17:00* Test Item Value Reference Range Interpretation Comments Carbon Dioxide Level (test code = 2028-9) 27 22-29 [facility] HospitalAnion Suv8059-97-40 07:17:00* Test Item Value Reference Range Interpretation Comments Anion Gap (test code = 57522-3) 14.6 8-16 [facility] HospitalBlood Urea Wysyvegy7198-63-51 07:17:00* Test Item Value Reference Range Interpretation Comments Blood Urea Nitrogen (test code = 3094-0) 9 7-26 [facility] HospitalCreatinine2018-05-02 07:17:00* Test Item Value Reference Range Interpretation Comments Creatinine (test code = 2160-0) 0.75 0.57-1.11 [facility] HospitalBUN/Creatinine Tulay1984-12-54 07:17:00* Test Item Value Reference Range Interpretation Comments BUN/Creatinine Ratio (test code = 3097-3) 12 6-25 [facility] HospitalEstimat Glomerular Filtration Rate 2018-01-15 07:17:00* Test Item Value Reference Range Interpretation Comments Estimat Glomerular Filtration Rate (test code = 09866-2) 60- >60 Ranges were taken from the National Kidney Disease Education Program and the [facility] literature.Reference ranges:60 or greater: Nlzxwt65-70 ( for 3 consecutive months): Chronic kidney disease 15 or less: Kidney failureFormerly [facility] HospitalGlucose Yhhsz4396-12-90 07:17:00* Test Item Value Reference Range Interpretation Comments Glucose Level (test code = AUO1389) 95 74-118 [facility] HospitalCalcium Xtqco9466-37-53 07:17:00* Test Item Value Reference Range Interpretation Comments Calcium Level (test code = 51899-6) 9.6 8.4-10.2 [facility] HospitalTotal Errchynjm9645-14-75 07:17:00* Test Item Value Reference Range Interpretation Comments Total Bilirubin (test code = 1975-2) 0.4 0.2-1.2 [facility] HospitalAspartate Amino Transf (AST/SGOT) 2018-01-15 07:17:00* Test Item Value Reference Range Interpretation Comments Aspartate Amino Transf (AST/SGOT) (test code = Aspartate Amino Transf (AST/SGOT)) 12 5-34 [facility] HospitalAlanine Aminotransferase (ALT/SGPT) 2018-01-15 07:17:00* Test Item Value Reference Range Interpretation Comments Alanine Aminotransferase (ALT/SGPT) (test code = 1742-6) 13 0-55 [facility] HospitalTotal Ghprnrx6298-85-92 07:17:00* Test Item Value Reference Range Interpretation Comments Total Protein (test code = 2885-2) 6.8 6.5-8.1 [facility] HospitalAlbumin2018-05-02 07:17:00* Test Item Value Reference Range Interpretation Comments Albumin (test code = 1751-7) 2.9 3.5-5.0 L [facility] HospitalGlobulin2018-05-02 07:17:00* Test Item Value Reference Range Interpretation Comments Globulin (test code = 81536-3) 3.9 2.3-3.5 H [facility] HospitalAlbumin/Globulin Abbai9303-90-53 07:17:00 * Test Item Value Reference Range Interpretation Comments Albumin/Globulin Ratio (test code = 1759-0) 0.7 0.8-2.0 L [facility] HospitalAlkaline Plojvfzapid8558-95-84 07:17:00* Test Item Value Reference Range Interpretation Comments Alkaline Phosphatase (test code = 6768-6) 103 40-150 [facility] Bqulc6556-73-02 07:17:00* Test Item Value Reference Range Interpretation Comments Sodium Level (test code = 2951-2) 133 136-145 L [facility] HospitalPotassium Bpunm2552-48-88 07:17:00* Test Item Value Reference Range Interpretation Comments Potassium Level (test code = 2823-3) 3.6 3.5-5.1 [facility] HospitalChloride Cmyog7759-55-76 07:17:00* Test Item Value Reference Range Interpretation Comments Chloride Level (test code = 2075-0) 95 98-107 L [facility] HospitalCarbon Dioxide Hcjvf5138-44-70 07:17:00* Test Item Value Reference Range Interpretation Comments Carbon Dioxide Level (test code = 2028-9) 27 22-29 [facility] HospitalAnion Nds6896-44-93 07:17:00* Test Item Value Reference Range Interpretation Comments Anion Gap (test code = 03902-4) 14.6 8-16 [facility] HospitalBlood Urea Qywvuont6825-25-08 07:17:00* Test Item Value Reference Range Interpretation Comments Blood Urea Nitrogen (test code = 3094-0) 9 7-26 [facility] HospitalCreatinine2018-05-02 07:17:00* Test Item Value Reference Range Interpretation Comments Creatinine (test code = 2160-0) 0.75 0.57-1.11 [facility] HospitalBUN/Creatinine Tjzuy8406-88-24 07:17:00* Test Item Value Reference Range Interpretation Comments BUN/Creatinine Ratio (test code = 3097-3) 12 6-25 [facility] HospitalEstimat Glomerular Filtration Rate 2018-01-15 07:17:00* Test Item Value Reference Range Interpretation Comments Estimat Glomerular Filtration Rate (test code = 65765-2) 60- >60 Ranges were taken from the National Kidney Disease Education Program and the [facility] literature.Reference ranges:60 or greater: Lkiukl83-46 ( for 3 consecutive months): Chronic kidney disease 15 or less: Kidney failureFormerly [facility] HospitalGlucose Gjjda2158-46-98 07:17:00* Test Item Value Reference Range Interpretation Comments Glucose Level (test code = RMO5176) 95 74-118 [facility] HospitalCalcium Afcnn1740-18-59 07:17:00* Test Item Value Reference Range Interpretation Comments Calcium Level (test code = 93657-5) 9.6 8.4-10.2 [facility] HospitalTotal Ecloozcwp4108-53-70 07:17:00* Test Item Value Reference Range Interpretation Comments Total Bilirubin (test code = 1975-2) 0.4 0.2-1.2 [facility] HospitalAspartate Amino Transf (AST/SGOT) 2018-01-15 07:17:00* Test Item Value Reference Range Interpretation Comments Aspartate Amino Transf (AST/SGOT) (test code = Aspartate Amino Transf (AST/SGOT)) 12 5-34 [facility] HospitalAlanine Aminotransferase (ALT/SGPT) 2018-01-15 07:17:00* Test Item Value Reference Range Interpretation Comments Alanine Aminotransferase (ALT/SGPT) (test code = 1742-6) 13 0-55 [facility] HospitalTotal Xxfxzxu6254-05-53 07:17:00* Test Item Value Reference Range Interpretation Comments Total Protein (test code = 2885-2) 6.8 6.5-8.1 [facility] HospitalAlbumin2018-05-02 07:17:00* Test Item Value Reference Range Interpretation Comments Albumin (test code = 1751-7) 2.9 3.5-5.0 L [facility] HospitalGlobulin2018-05-02 07:17:00* Test Item Value Reference Range Interpretation Comments Globulin (test code = 92295-8) 3.9 2.3-3.5 H [facility] HospitalAlbumin/Globulin Reisy0185-07-76 07:17:00 * Test Item Value Reference Range Interpretation Comments Albumin/Globulin Ratio (test code = 1759-0) 0.7 0.8-2.0 L [facility] HospitalAlkaline Djkpyqzimeh2754-08-09 07:17:00* Test Item Value Reference Range Interpretation Comments Alkaline Phosphatase (test code = 6768-6) 103 40-150 [facility]odium Etohz7588-65-39 07:17:00* Test Item Value Reference Range Interpretation Comments Sodium Level (test code = 2951-2) 133 136-145 L [facility] HospitalPotassium Icqin1007-97-02 07:17:00* Test Item Value Reference Range Interpretation Comments Potassium Level (test code = 2823-3) 3.6 3.5-5.1 [facility] HospitalChloride Hqgnf7075-69-37 07:17:00* Test Item Value Reference Range Interpretation Comments Chloride Level (test code = 2075-0) 95 98-107 L [facility] HospitalCarbon Dioxide Oykig5599-92-26 07:17:00* Test Item Value Reference Range Interpretation Comments Carbon Dioxide Level (test code = 2028-9) 27 22-29 [facility] HospitalAnion Mln3386-62-71 07:17:00* Test Item Value Reference Range Interpretation Comments Anion Gap (test code = 58190-7) 14.6 8-16 [facility] HospitalBlood Urea Tdgjdzkz8815-96-87 07:17:00* Test Item Value Reference Range Interpretation Comments Blood Urea Nitrogen (test code = 3094-0) 9 7-26 [facility] HospitalCreatinine2018-05-02 07:17:00* Test Item Value Reference Range Interpretation Comments Creatinine (test code = 2160-0) 0.75 0.57-1.11 [facility] HospitalBUN/Creatinine Ycbrd2765-99-97 07:17:00* Test Item Value Reference Range Interpretation Comments BUN/Creatinine Ratio (test code = 3097-3) 12 6-25 [facility] HospitalEstimat Glomerular Filtration Rate 2018-01-15 07:17:00* Test Item Value Reference Range Interpretation Comments Estimat Glomerular Filtration Rate (test code = 717931774) 60- >60 Ranges were taken from the National Kidney Disease Education Program and the [facility] Kidney Foundation literature.Reference ranges:60 or greater: Rqjdlt13-66 ( for 3 consecutive months): Chronic kidney disease 15 or less: Kidney failureFormerly [facility] HospitalGlucose Coqvf1787-27-20 07:17:00* Test Item Value Reference Range Interpretation Comments Glucose Level (test code = LMS4430) 95 74-118 [facility] HospitalCalcium Ioffa4358-93-53 07:17:00* Test Item Value Reference Range Interpretation Comments Calcium Level (test code = 08429-1) 9.6 8.4-10.2 [facility] HospitalTotal Eimuydmpa9745-92-36 07:17:00* Test Item Value Reference Range Interpretation Comments Total Bilirubin (test code = 1975-2) 0.4 0.2-1.2 [facility] HospitalAspartate Amino Transf (AST/SGOT) 2018-01-15 07:17:00* Test Item Value Reference Range Interpretation Comments Aspartate Amino Transf (AST/SGOT) (test code = Aspartate Amino Transf (AST/SGOT)) 12 5-34 [facility] HospitalAlanine Aminotransferase (ALT/SGPT) 2018-01-15 07:17:00* Test Item Value Reference Range Interpretation Comments Alanine Aminotransferase (ALT/SGPT) (test code = 1742-6) 13 0-55 [facility] HospitalTotal Ujroeif1646-47-85 07:17:00* Test Item Value Reference Range Interpretation Comments Total Protein (test code = 2885-2) 6.8 6.5-8.1 [facility] HospitalAlbumin2018-05-02 07:17:00* Test Item Value Reference Range Interpretation Comments Albumin (test code = 1751-7) 2.9 3.5-5.0 L [facility] HospitalGlobulin2018-05-02 07:17:00* Test Item Value Reference Range Interpretation Comments Globulin (test code = 13085-7) 3.9 2.3-3.5 H [facility] HospitalAlbumin/Globulin Qzolt7617-32-34 07:17:00 * Test Item Value Reference Range Interpretation Comments Albumin/Globulin Ratio (test code = 1759-0) 0.7 0.8-2.0 L [facility] HospitalAlkaline Gfuhqaevlgi3149-91-66 07:17:00* Test Item Value Reference Range Interpretation Comments Alkaline Phosphatase (test code = 6768-6) 103 40-150 [facility] Cbgpo7651-31-34 07:17:00* Test Item Value Reference Range Interpretation Comments Sodium Level (test code = 2951-2) 133 136-145 L [facility] HospitalPotassium Sgkdn9503-27-89 07:17:00* Test Item Value Reference Range Interpretation Comments Potassium Level (test code = 2823-3) 3.6 3.5-5.1 [facility] HospitalChloride Ogflf8001-16-28 07:17:00* Test Item Value Reference Range Interpretation Comments Chloride Level (test code = 2075-0) 95 98-107 L [facility] HospitalCarbon Dioxide Yqndc4794-17-70 07:17:00* Test Item Value Reference Range Interpretation Comments Carbon Dioxide Level (test code = 2028-9) 27 22-29 [facility] HospitalAnion Yqg2344-07-50 07:17:00* Test Item Value Reference Range Interpretation Comments Anion Gap (test code = 52086-2) 14.6 8-16 [facility] HospitalBlood Urea Zvdxxzmy2737-36-84 07:17:00* Test Item Value Reference Range Interpretation Comments Blood Urea Nitrogen (test code = 3094-0) 9 7-26 [facility] HospitalCreatinine2018-05-02 07:17:00* Test Item Value Reference Range Interpretation Comments Creatinine (test code = 2160-0) 0.75 0.57-1.11 [facility] HospitalBUN/Creatinine Vpspd6114-51-16 07:17:00* Test Item Value Reference Range Interpretation Comments BUN/Creatinine Ratio (test code = 3097-3) 12 6-25 [facility] HospitalEstimat Glomerular Filtration Rate 2018-01-15 07:17:00* Test Item Value Reference Range Interpretation Comments Estimat Glomerular Filtration Rate (test code = 570512807) > 60 >60 Ranges were taken from the National Kidney Disease Education Program and the [facility] literature.Reference ranges:60 or greater: Olxjip49-96 ( for 3 consecutive months): Chronic kidney disease 15 or less: Kidney failureCHI [facility] TaylorGlucose Qdrkl5049-57-96 07:17:00* Test Item Value Reference Range Interpretation Comments Glucose Level (test code = CHG0702) 95 74-118 [facility] HospitalCalcium Zfvtm1647-86-65 07:17:00* Test Item Value Reference Range Interpretation Comments Calcium Level (test code = 91043-6) 9.6 8.4-10.2 [facility] HospitalTotal Yluvfldub4889-70-13 07:17:00* Test Item Value Reference Range Interpretation Comments Total Bilirubin (test code = 1975-2) 0.4 0.2-1.2 [facility] HospitalAspartate Amino Transf (AST/SGOT) 2018-01-15 07:17:00* Test Item Value Reference Range Interpretation Comments Aspartate Amino Transf (AST/SGOT) (test code = Aspartate Amino Transf (AST/SGOT)) 12 5-34 [facility] HospitalAlanine Aminotransferase (ALT/SGPT) 2018-01-15 07:17:00* Test Item Value Reference Range Interpretation Comments Alanine Aminotransferase (ALT/SGPT) (test code = 1742-6) 13 0-55 [facility] HospitalTotal Wjobvvu6323-43-02 07:17:00* Test Item Value Reference Range Interpretation Comments Total Protein (test code = 2885-2) 6.8 6.5-8.1 [facility] HospitalAlbumin2018-05-02 07:17:00* Test Item Value Reference Range Interpretation Comments Albumin (test code = 1751-7) 2.9 3.5-5.0 L [facility] HospitalGlobulin2018-05-02 07:17:00* Test Item Value Reference Range Interpretation Comments Globulin (test code = 04396-6) 3.9 2.3-3.5 H [facility] HospitalAlbumin/Globulin Lsfwm9097-96-85 07:17:00 * Test Item Value Reference Range Interpretation Comments Albumin/Globulin Ratio (test code = 1759-0) 0.7 0.8-2.0 L [facility] HospitalAlkaline Ijehmcndmji3412-06-40 07:17:00* Test Item Value Reference Range Interpretation Comments Alkaline Phosphatase (test code = 6768-6) 103 40-150 [facility] HospitalWhite Blood Uxbyq5242-64-52 06:32:00* Test Item Value Reference Range Interpretation Comments White Blood Count (test code = 6690-2) 6.10 4.8-10.8 [facility] HospitalRed Blood Pgrrc2824-49-33 06:32:00* Test Item Value Reference Range Interpretation Comments Red Blood Count (test code = 789-8) 3.96 3.6-5.1 [facility] HospitalHemoglobin2018-05-02 06:32:00* Test Item Value Reference Range Interpretation Comments Hemoglobin (test code = 34228-4) 11.5 12.0-16.0 L Cathleen Silva [facility] TaylorHematocrit2018-05-02 06:32:00* Test Item Value Reference Range Interpretation Comments Hematocrit (test code = 4544-3) 32.8 34.2-44.1 L [facility] HospitalMean Corpuscular Puixwu3575-83-82 06:32:00* Test Item Value Reference Range Interpretation Comments Mean Corpuscular Volume (test code = 787-2) 82.8 81-99 [facility] HospitalMean Corpuscular Fndcqpkpxe7429-19-07 06:32:00* Test Item Value Reference Range Interpretation Comments Mean Corpuscular Hemoglobin (test code = 785-6) 29.0 28-32 [facility] HospitalMean Corpuscular Hemoglobin Concent 2018-01-15 06:32:00* Test Item Value Reference Range Interpretation Comments Mean Corpuscular Hemoglobin Concent (test code = 786-4) 35.1 31-35 H [facility] HospitalRed Cell Distribution Lgjjr1401-68-71 06:32:00* Test Item Value Reference Range Interpretation Comments Red Cell Distribution Width (test code = 63883-5) 12.8 11.7 -14.4 [facility] HospitalPlatelet Nbwhy0543-30-02 06:32:00* Test Item Value Reference Range Interpretation Comments Platelet Count (test code = 777-3) 320 140-360 [facility] HospitalNeutrophils (%) (Auto)2018-01-15 06:32:00 * Test Item Value Reference Range Interpretation Comments Neutrophils (%) (Auto) (test code = 86837-2) 55.9 38.7-80.0 [facility] HospitalLymphocytes (%) (Auto)2018-01-15 06:32:00 * Test Item Value Reference Range Interpretation Comments Lymphocytes (%) (Auto) (test code = 736-9) 32.6 18.0-39.1 [facility] HospitalMonocytes (%) (Auto)2018-01-15 06:32:00* Test Item Value Reference Range Interpretation Comments Monocytes (%) (Auto) (test code = 5905-5) 7.9 4.4-11.3 [facility] HospitalEosinophils (%) (Auto)2018-01-15 06:32:00 * Test Item Value Reference Range Interpretation Comments Eosinophils (%) (Auto) (test code = 713-8) 2.5 0.0-6.0 [facility] HospitalBasophils (%) (Auto)2018-01-15 06:32:00* Test Item Value Reference Range Interpretation Comments Basophils (%) (Auto) (test code = 706-2) 0.3 0.0-1.0 [facility] HospitalIM GRANULOCYTES %2018-01-15 06:32:00* Test Item Value Reference Range Interpretation Comments IM GRANULOCYTES % (test code = IM GRANULOCYTES %) 0.8 0.0- 1.0 [facility] HospitalNeutrophils # (Auto)2018-01-15 06:32:00* Test Item Value Reference Range Interpretation Comments Neutrophils # (Auto) (test code = 751-8) 3.4 2.1-6.9 [facility] HospitalLymphocytes # (Auto)2018-01-15 06:32:00* Test Item Value Reference Range Interpretation Comments Lymphocytes # (Auto) (test code = 70908-8) 2.0 1.0-3.2 [facility] HospitalMonocytes # (Auto)2018-01-15 06:32:00* Test Item Value Reference Range Interpretation Comments Monocytes # (Auto) (test code = 742-7) 0.5 0.2-0.8 [facility] HospitalEosinophils # (Auto)2018-01-15 06:32:00* Test Item Value Reference Range Interpretation Comments Eosinophils # (Auto) (test code = 711-2) 0.2 0.0-0.4 [facility] HospitalBasophils # (Auto)2018-01-15 06:32:00* Test Item Value Reference Range Interpretation Comments Basophils # (Auto) (test code = 704-7) 0.0 0.0-0.1 [facility] HospitalAbsolute Immature Granulocyte (auto 2018-01-15 06:32:00* Test Item Value Reference Range Interpretation Comments Absolute Immature Granulocyte (auto (asia t code = Absolute Immature Granulocyte (auto) 0.05 0-0.1 [facility] HospitalWhite Blood Dsgjp0311-61-18 06:32:00* Test Item Value Reference Range Interpretation Comments White Blood Count (test code = 6690-2) 6.10 4.8-10.8 [facility] HospitalRed Blood Yiuyd3647-08-76 06:32:00* Test Item Value Reference Range Interpretation Comments Red Blood Count (test code = 789-8) 3.96 3.6-5.1 [facility] HospitalHemoglobin2018-05-02 06:32:00* Test Item Value Reference Range Interpretation Comments Hemoglobin (test code = 87848-6) 11.5 12.0-16.0 L Cathleen MedinaFormerly [facility] HospitalHematocrit2018-05-02 06:32:00* Test Item Value Reference Range Interpretation Comments Hematocrit (test code = 4544-3) 32.8 34.2-44.1 L [facility] HospitalMean Corpuscular Crdiax5649-30-82 06:32:00* Test Item Value Reference Range Interpretation Comments Mean Corpuscular Volume (test code = 787-2) 82.8 81-99 [facility] HospitalMean Corpuscular Mcnylkbgjl4052-20-30 06:32:00* Test Item Value Reference Range Interpretation Comments Mean Corpuscular Hemoglobin (test code = 785-6) 29.0 28-32 [facility] HospitalMean Corpuscular Hemoglobin Concent 2018-01-15 06:32:00* Test Item Value Reference Range Interpretation Comments Mean Corpuscular Hemoglobin Concent (test code = 786-4) 35.1 31-35 H [facility] HospitalRed Cell Distribution Jiavq5371-84-02 06:32:00* Test Item Value Reference Range Interpretation Comments Red Cell Distribution Width (test code = 19341-1) 12.8 11.7 -14.4 [facility] HospitalPlatelet Pgglo4874-62-52 06:32:00* Test Item Value Reference Range Interpretation Comments Platelet Count (test code = 777-3) 320 140-360 [facility] HospitalNeutrophils (%) (Auto)2018-01-15 06:32:00 * Test Item Value Reference Range Interpretation Comments Neutrophils (%) (Auto) (test code = 27756-0) 55.9 38.7-80.0 [facility] HospitalLymphocytes (%) (Auto)2018-01-15 06:32:00 * Test Item Value Reference Range Interpretation Comments Lymphocytes (%) (Auto) (test code = 736-9) 32.6 18.0-39.1 [facility] HospitalMonocytes (%) (Auto)2018-01-15 06:32:00* Test Item Value Reference Range Interpretation Comments Monocytes (%) (Auto) (test code = 5905-5) 7.9 4.4-11.3 [facility] HospitalEosinophils (%) (Auto)2018-01-15 06:32:00 * Test Item Value Reference Range Interpretation Comments Eosinophils (%) (Auto) (test code = 713-8) 2.5 0.0-6.0 [facility] HospitalBasophils (%) (Auto)2018-01-15 06:32:00* Test Item Value Reference Range Interpretation Comments Basophils (%) (Auto) (test code = 706-2) 0.3 0.0-1.0 [facility] HospitalIM GRANULOCYTES %2018-01-15 06:32:00* Test Item Value Reference Range Interpretation Comments IM GRANULOCYTES % (test code = IM GRANULOCYTES %) 0.8 0.0- 1.0 [facility] HospitalNeutrophils # (Auto)2018-01-15 06:32:00* Test Item Value Reference Range Interpretation Comments Neutrophils # (Auto) (test code = 751-8) 3.4 2.1-6.9 [facility] HospitalLymphocytes # (Auto)2018-01-15 06:32:00* Test Item Value Reference Range Interpretation Comments Lymphocytes # (Auto) (test code = 60373-1) 2.0 1.0-3.2 [facility] HospitalMonocytes # (Auto)2018-01-15 06:32:00* Test Item Value Reference Range Interpretation Comments Monocytes # (Auto) (test code = 742-7) 0.5 0.2-0.8 [facility] HospitalEosinophils # (Auto)2018-01-15 06:32:00* Test Item Value Reference Range Interpretation Comments Eosinophils # (Auto) (test code = 711-2) 0.2 0.0-0.4 [facility] HospitalBasophils # (Auto)2018-01-15 06:32:00* Test Item Value Reference Range Interpretation Comments Basophils # (Auto) (test code = 704-7) 0.0 0.0-0.1 [facility] HospitalAbsolute Immature Granulocyte (auto 2018-01-15 06:32:00* Test Item Value Reference Range Interpretation Comments Absolute Immature Granulocyte (auto (asia t code = Absolute Immature Granulocyte (auto) 0.05 0-0.1 [facility] HospitalWhite Blood Lqgdd7910-63-52 06:32:00* Test Item Value Reference Range Interpretation Comments White Blood Count (test code = 6690-2) 6.10 4.8-10.8 [facility] HospitalRed Blood Nedet8132-65-96 06:32:00* Test Item Value Reference Range Interpretation Comments Red Blood Count (test code = 789-8) 3.96 3.6-5.1 [facility] HospitalHemoglobin2018-05-02 06:32:00* Test Item Value Reference Range Interpretation Comments Hemoglobin (test code = 95134-8) 11.5 12.0-16.0 L [facility] Silva [facility]Hematocrit2018-05-02 06:32:00* Test Item Value Reference Range Interpretation Comments Hematocrit (test code = 4544-3) 32.8 34.2-44.1 L [facility] HospitalMean Corpuscular Ztspqm4034-84-59 06:32:00* Test Item Value Reference Range Interpretation Comments Mean Corpuscular Volume (test code = 787-2) 82.8 81-99 [facility] HospitalMean Corpuscular Qwedtnafll6824-26-73 06:32:00* Test Item Value Reference Range Interpretation Comments Mean Corpuscular Hemoglobin (test code = 785-6) 29.0 28-32 [facility] HospitalMean Corpuscular Hemoglobin Concent 2018-01-15 06:32:00* Test Item Value Reference Range Interpretation Comments Mean Corpuscular Hemoglobin Concent (test code = 786-4) 35.1 31-35 H [facility] HospitalRed Cell Distribution Danto6053-45-34 06:32:00* Test Item Value Reference Range Interpretation Comments Red Cell Distribution Width (test code = 41117-4) 12.8 11.7 -14.4 [facility] HospitalPlatelet Lhoyx6232-20-07 06:32:00* Test Item Value Reference Range Interpretation Comments Platelet Count (test code = 777-3) 320 140-360 [facility] HospitalNeutrophils (%) (Auto)2018-01-15 06:32:00 * Test Item Value Reference Range Interpretation Comments Neutrophils (%) (Auto) (test code = 97524-0) 55.9 38.7-80.0 [facility] HospitalLymphocytes (%) (Auto)2018-01-15 06:32:00 * Test Item Value Reference Range Interpretation Comments Lymphocytes (%) (Auto) (test code = 736-9) 32.6 18.0-39.1 [facility] HospitalMonocytes (%) (Auto)2018-01-15 06:32:00* Test Item Value Reference Range Interpretation Comments Monocytes (%) (Auto) (test code = 5905-5) 7.9 4.4-11.3 [facility] HospitalEosinophils (%) (Auto)2018-01-15 06:32:00 * Test Item Value Reference Range Interpretation Comments Eosinophils (%) (Auto) (test code = 713-8) 2.5 0.0-6.0 [facility] HospitalBasophils (%) (Auto)2018-01-15 06:32:00* Test Item Value Reference Range Interpretation Comments Basophils (%) (Auto) (test code = 706-2) 0.3 0.0-1.0 [facility] HospitalIM GRANULOCYTES %2018-01-15 06:32:00* Test Item Value Reference Range Interpretation Comments IM GRANULOCYTES % (test code = IM GRANULOCYTES %) 0.8 0.0- 1.0 [facility] HospitalNeutrophils # (Auto)2018-01-15 06:32:00* Test Item Value Reference Range Interpretation Comments Neutrophils # (Auto) (test code = 751-8) 3.4 2.1-6.9 [facility] HospitalLymphocytes # (Auto)2018-01-15 06:32:00* Test Item Value Reference Range Interpretation Comments Lymphocytes # (Auto) (test code = 09774-8) 2.0 1.0-3.2 [facility] HospitalMonocytes # (Auto)2018-01-15 06:32:00* Test Item Value Reference Range Interpretation Comments Monocytes # (Auto) (test code = 742-7) 0.5 0.2-0.8 [facility] HospitalEosinophils # (Auto)2018-01-15 06:32:00* Test Item Value Reference Range Interpretation Comments Eosinophils # (Auto) (test code = 711-2) 0.2 0.0-0.4 [facility] HospitalBasophils # (Auto)2018-01-15 06:32:00* Test Item Value Reference Range Interpretation Comments Basophils # (Auto) (test code = 704-7) 0.0 0.0-0.1 [facility] HospitalAbsolute Immature Granulocyte (auto 2018-01-15 06:32:00* Test Item Value Reference Range Interpretation Comments Absolute Immature Granulocyte (auto (asia t code = Absolute Immature Granulocyte (auto) 0.05 0-0.1 [facility] HospitalWhite Blood Jhcfl1314-28-15 06:32:00* Test Item Value Reference Range Interpretation Comments White Blood Count (test code = 6690-2) 6.10 4.8-10.8 [facility] HospitalRed Blood Jahng7901-97-53 06:32:00* Test Item Value Reference Range Interpretation Comments Red Blood Count (test code = 789-8) 3.96 3.6-5.1 [facility] HospitalHemoglobin2018-05-02 06:32:00* Test Item Value Reference Range Interpretation Comments Hemoglobin (test code = 76124-1) 11.5 12.0-16.0 L Cathleen Silva [facility] TaylorHematocrit2018-05-02 06:32:00* Test Item Value Reference Range Interpretation Comments Hematocrit (test code = 4544-3) 32.8 34.2-44.1 L [facility] HospitalMean Corpuscular Oxskhv6670-97-53 06:32:00* Test Item Value Reference Range Interpretation Comments Mean Corpuscular Volume (test code = 787-2) 82.8 81-99 [facility] HospitalMean Corpuscular Vgszlsgwkd9208-50-66 06:32:00* Test Item Value Reference Range Interpretation Comments Mean Corpuscular Hemoglobin (test code = 785-6) 29.0 28-32 [facility] HospitalMean Corpuscular Hemoglobin Concent 2018-01-15 06:32:00* Test Item Value Reference Range Interpretation Comments Mean Corpuscular Hemoglobin Concent (test code = 786-4) 35.1 31-35 H [facility] HospitalRed Cell Distribution Lwoou6134-54-31 06:32:00* Test Item Value Reference Range Interpretation Comments Red Cell Distribution Width (test code = 42359-5) 12.8 11.7 -14.4 [facility] HospitalPlatelet Gnhqy5665-06-73 06:32:00* Test Item Value Reference Range Interpretation Comments Platelet Count (test code = 777-3) 320 140-360 [facility] HospitalNeutrophils (%) (Auto)2018-01-15 06:32:00 * Test Item Value Reference Range Interpretation Comments Neutrophils (%) (Auto) (test code = 19967-4) 55.9 38.7-80.0 [facility] HospitalLymphocytes (%) (Auto)2018-01-15 06:32:00 * Test Item Value Reference Range Interpretation Comments Lymphocytes (%) (Auto) (test code = 736-9) 32.6 18.0-39.1 [facility] HospitalMonocytes (%) (Auto)2018-01-15 06:32:00* Test Item Value Reference Range Interpretation Comments Monocytes (%) (Auto) (test code = 5905-5) 7.9 4.4-11.3 [facility] HospitalEosinophils (%) (Auto)2018-01-15 06:32:00 * Test Item Value Reference Range Interpretation Comments Eosinophils (%) (Auto) (test code = 713-8) 2.5 0.0-6.0 [facility] HospitalBasophils (%) (Auto)2018-01-15 06:32:00* Test Item Value Reference Range Interpretation Comments Basophils (%) (Auto) (test code = 706-2) 0.3 0.0-1.0 [facility] HospitalIM GRANULOCYTES %2018-01-15 06:32:00* Test Item Value Reference Range Interpretation Comments IM GRANULOCYTES % (test code = IM GRANULOCYTES %) 0.8 0.0- 1.0 [facility] HospitalNeutrophils # (Auto)2018-01-15 06:32:00* Test Item Value Reference Range Interpretation Comments Neutrophils # (Auto) (test code = 751-8) 3.4 2.1-6.9 [facility] HospitalLymphocytes # (Auto)2018-01-15 06:32:00* Test Item Value Reference Range Interpretation Comments Lymphocytes # (Auto) (test code = 92935-0) 2.0 1.0-3.2 [facility] HospitalMonocytes # (Auto)2018-01-15 06:32:00* Test Item Value Reference Range Interpretation Comments Monocytes # (Auto) (test code = 742-7) 0.5 0.2-0.8 [facility] HospitalEosinophils # (Auto)2018-01-15 06:32:00* Test Item Value Reference Range Interpretation Comments Eosinophils # (Auto) (test code = 711-2) 0.2 0.0-0.4 [facility] HospitalBasophils # (Auto)2018-01-15 06:32:00* Test Item Value Reference Range Interpretation Comments Basophils # (Auto) (test code = 704-7) 0.0 0.0-0.1 [facility] HospitalAbsolute Immature Granulocyte (auto 2018-01-15 06:32:00* Test Item Value Reference Range Interpretation Comments Absolute Immature Granulocyte (auto (asia t code = Absolute Immature Granulocyte (auto) 0.05 0-0.1 [facility] Xoklpoo0849-18-02 06:59:00* Test Item Value Reference Range Interpretation Comments Urine Culture (test code = 630-4) Organism: ESCHERICHIA COLI [facility]2018-04-29 06:59:00* Test Item Value Reference Range Interpretation Comments Urine Culture (test code = 630-4) Organism: ESCHERICHIA COLI [facility]2018-04-29 06:59:00* Test Item Value Reference Range Interpretation Comments Urine Culture (test code = 630-4) Organism: ESCHERICHIA COLI [facility]2018-04-29 06:59:00* Test Item Value Reference Range Interpretation Comments Urine Culture (test code = 630-4) Organism: ESCHERICHIA COLI [facility] Fqtdwdt6608-56-91 06:59:00* Test Item Value Reference Range Interpretation Comments Urine Culture (test code = 630-4) Organism: ESCHERICHIA COLI [facility] HospitalCreatine Mnxrgm0877-92-29 06:47:00* Test Item Value Reference Range Interpretation Comments Creatine Kinase (test code = 2157-6) 32 -168 [facility] HospitalCreatine Kinase QU8924-39-33 06:47:00* Test Item Value Reference Range Interpretation Comments Creatine Kinase MB (test code = 46004-0) 0.30 0-5.0 [facility] HospitalTroponin U9726-94-05 06:47:00* Test Item Value Reference Range Interpretation Comments Troponin I (test code = PGO9677) -0.001 0-0.300 [facility] HospitalCreatine Kgdzfd5342-96-90 06:47:00* Test Item Value Reference Range Interpretation Comments Creatine Kinase (test code = 2157-6) 32 29-168 [facility] HospitalCreatine Kinase BH7869-56-42 06:47:00* Test Item Value Reference Range Interpretation Comments Creatine Kinase MB (test code = 36506-4) 0.30 0-5.0 [place] 33415018-04-28 06:47:00* Test Item Value Reference Range Interpretation Comments Troponin I (test code = [id number]) -0.001 0-0.300 [facility] Omfusu6520-86-18 06:47:00* Test Item Value Reference Range Interpretation Comments Creatine Kinase (test code = 2157-6) 32 -168 [facility] Kin[facility] [id number] 06:47:00* Test Item Value Reference Range Interpretation Comments Creatine Kinase MB (test code = 51021-3) 0.30 0-5.0 [place] 33415018-04-28 06:47:00* Test Item Value Reference Range Interpretation Comments Troponin I (test code = UCS6210) -0.001 0-0.300 [facility] Aobutz4170-39-35 06:47:00* Test Item Value Reference Range Interpretation Comments Creatine Kinase (test code = 2157-6) 32 29-168 [facility] Kinase OF8901-46-06 06:47:00* Test Item Value Reference Range Interpretation Comments Creatine Kinase MB (test code = 58741-8) 0.30 0-5.0 [place] 33415018-04-28 06:47:00* Test Item Value Reference Range Interpretation Comments Troponin I (test code = YKZ1705) < 0.001 0-0.300 [facility] Svudfm2111-57-74 06:47:00* Test Item Value Reference Range Interpretation Comments Creatine Kinase (test code = 2157-6) 32 29-168 [facility] Kinase QO6712-37-93 06:47:00* Test Item Value Reference Range Interpretation Comments Creatine Kinase MB (test code = 93920-9) 0.30 0-5.0 [place] 33415018-04-28 06:47:00* Test Item Value Reference Range Interpretation Comments Troponin I (test code = ZUS6533) < 0.001 0-0.300 [facility] WZF5652-26-97 14:50:00* Test Item Value Reference Range Interpretation Comments Urine WBC (test code = 5821-4) 11-20 0-5 H [facility] XQU7078-23-83 14:50:00* Test Item Value Reference Range Interpretation Comments Urine RBC (test code = 88995-0) 21-50 0-5 H [facility] Mznwxtoq7600-44-88 14:50:00* Test Item Value Reference Range Interpretation Comments Urine Bacteria (test code = 53283-6) MODERATE NONE H [facility] Epithelial Yacin7076-73-91 14:50:00 * Test Item Value Reference Range Interpretation Comments Urine Epithelial Cells (test code = 02667-9) NONE NONE [facility] Amorphous Xitdhsey1479-28-84 14:50:00* Test Item Value Reference Range Interpretation Comments Urine Amorphous Sediment (test code = 8246-1) FEW FEW [facility] HID9970-53-57 14:50:00* Test Item Value Reference Range Interpretation Comments Urine WBC (test code = 5821-4) 11-20 0-5 H [facility] NEN6835-14-12 14:50:00* Test Item Value Reference Range Interpretation Comments Urine RBC (test code = 35216-9) 21-50 0-5 H [facility] Ommqgucm5137-66-42 14:50:00* Test Item Value Reference Range Interpretation Comments Urine Bacteria (test code = 36058-5) MODERATE NONE H [facility] Epithelial Cclar9390-34-57 14:50:00 * Test Item Value Reference Range Interpretation Comments Urine Epithelial Cells (test code = 42937-9) NONE NONE [facility] Amorphous Yvyxpwxj7732-17-59 14:50:00* Test Item Value Reference Range Interpretation Comments Urine Amorphous Sediment (test code = 8246-1) FEW FEW [facility] DKJ6709-94-20 14:50:00* Test Item Value Reference Range Interpretation Comments Urine WBC (test code = 5821-4) 11-20 0-5 H [facility] LFH9585-68-35 14:50:00* Test Item Value Reference Range Interpretation Comments Urine RBC (test code = 98881-3) 21-50 0-5 H [facility] Ezewulgx0499-44-83 14:50:00* Test Item Value Reference Range Interpretation Comments Urine Bacteria (test code = 00019-7) MODERATE NONE H [facility] Epithelial Ozsyk0169-76-37 14:50:00 * Test Item Value Reference Range Interpretation Comments Urine Epithelial Cells (test code = 36040-5) NONE NONE [facility] Amorphous Dqjplgfv8212-92-54 14:50:00* Test Item Value Reference Range Interpretation Comments Urine Amorphous Sediment (test code = 8246-1) FEW FEW [facility] Varuk3910-66-70 14:45:00* Test Item Value Reference Range Interpretation Comments Urine Color (test code = 5778-6) YELLOW YELLOW [facility] Nwspgpu5657-47-36 14:45:00* Test Item Value Reference Range Interpretation Comments Urine Clarity (test code = 14551-5) CLEAR CLEAR [facility] Specific Rojschw9609-45-19 14:45:00 * Test Item Value Reference Range Interpretation Comments Urine Specific Derwent (test code = 5811-5) 1.020 1.010-1.02 5 [facility] zM1478-38-15 14:45:00* Test Item Value Reference Range Interpretation Comments Urine pH (test code = 13565-4) 6.5 5-7 [facility] Leukocyte Jpcjkecy1713-52-74 14:45:00* Test Item Value Reference Range Interpretation Comments Urine Leukocyte Esterase (test code = 5799-2) TRACE NEGATIVE H [facility] Oculxir4595-78-28 14:45:00* Test Item Value Reference Range Interpretation Comments Urine Nitrite (test code = 62078-8) POSITIVE NEGATIVE H [facility] Vtuxdos3558-97-77 14:45:00* Test Item Value Reference Range Interpretation Comments Urine Protein (test code = 5804-0) NEGATIVE NEGATIVE [facility] Glucose (UA)2018-01-10 14:45:00* Test Item Value Reference Range Interpretation Comments Urine Glucose (UA) (test code = 2349-9) NEGATIVE NEGATIVE [facility] Uhrickj0848-09-98 14:45:00* Test Item Value Reference Range Interpretation Comments Urine Ketones (test code = 01342-9) NEGATIVE NEGATIVE [facility] Ewtoxekxbanp1045-68-60 14:45:00* Test Item Value Reference Range Interpretation Comments Urine Urobilinogen (test code = 03233-8) 0.2 0.2-1 [facility] Giingcock8513-18-61 14:45:00* Test Item Value Reference Range Interpretation Comments Urine Bilirubin (test code = 1978-6) NEGATIVE NEGATIVE [facility] Tjzpa1289-63-87 14:45:00* Test Item Value Reference Range Interpretation Comments Urine Blood (test code = 61761-2) 2+ NEGATIVE H [facility] Mjqip7353-67-17 14:45:00* Test Item Value Reference Range Interpretation Comments Urine Color (test code = 5778-6) YELLOW YELLOW [facility] Spqiayy3134-63-96 14:45:00* Test Item Value Reference Range Interpretation Comments Urine Clarity (test code = 02961-7) CLEAR CLEAR [facility] Specific Psffwta8581-68-82 14:45:00 * Test Item Value Reference Range Interpretation Comments Urine Specific Derwent (test code = 5811-5) 1.020 1.010-1.02 5 [facility] kP0381-24-44 14:45:00* Test Item Value Reference Range Interpretation Comments Urine pH (test code = 55095-7) 6.5 5-7 [facility] Leukocyte Dwarguim1733-35-20 14:45:00* Test Item Value Reference Range Interpretation Comments Urine Leukocyte Esterase (test code = 5799-2) TRACE NEGATIVE H [facility] Qkbcprt2354-03-70 14:45:00* Test Item Value Reference Range Interpretation Comments Urine Nitrite (test code = 54632-7) POSITIVE NEGATIVE H [facility] Knvlmra7775-40-82 14:45:00* Test Item Value Reference Range Interpretation Comments Urine Protein (test code = 5804-0) NEGATIVE NEGATIVE [facility] Glucose (UA)2018-01-10 14:45:00* Test Item Value Reference Range Interpretation Comments Urine Glucose (UA) (test code = 2349-9) NEGATIVE NEGATIVE [facility] Lyvvgdc0168-22-88 14:45:00* Test Item Value Reference Range Interpretation Comments Urine Ketones (test code = 66778-0) NEGATIVE NEGATIVE [facility] Mmwyfbovpvcm6829-17-30 14:45:00* Test Item Value Reference Range Interpretation Comments Urine Urobilinogen (test code = 71323-2) 0.2 0.2-1 [facility] Fowdmpplk2498-78-96 14:45:00* Test Item Value Reference Range Interpretation Comments Urine Bilirubin (test code = 1978-6) NEGATIVE NEGATIVE [facility] Awkzu9896-86-99 14:45:00* Test Item Value Reference Range Interpretation Comments Urine Blood (test code = 72690-0) 2+ NEGATIVE H [facility] Mdxwr5585-64-34 14:45:00* Test Item Value Reference Range Interpretation Comments Urine Color (test code = 5778-6) YELLOW YELLOW [facility] Mieobly9280-88-28 14:45:00* Test Item Value Reference Range Interpretation Comments Urine Clarity (test code = 74351-4) CLEAR CLEAR [facility] Specific Asgqutr2160-25-49 14:45:00 * Test Item Value Reference Range Interpretation Comments Urine Specific Derwent (test code = 5811-5) 1.020 1.010-1.02 5 [facility] bN3591-94-07 14:45:00* Test Item Value Reference Range Interpretation Comments Urine pH (test code = 55556-7) 6.5 5-7 [facility] Leukocyte Ggwixoni0793-99-51 14:45:00* Test Item Value Reference Range Interpretation Comments Urine Leukocyte Esterase (test code = 5799-2) TRACE NEGATIVE H [facility] Qjiesgk9080-54-12 14:45:00* Test Item Value Reference Range Interpretation Comments Urine Nitrite (test code = 07068-4) POSITIVE NEGATIVE H [facility] Wwigwkt4206-10-38 14:45:00* Test Item Value Reference Range Interpretation Comments Urine Protein (test code = 5804-0) NEGATIVE NEGATIVE [facility] Glucose (UA)2018-01-10 14:45:00* Test Item Value Reference Range Interpretation Comments Urine Glucose (UA) (test code = 2349-9) NEGATIVE NEGATIVE [facility] Gvrukva3206-22-11 14:45:00* Test Item Value Reference Range Interpretation Comments Urine Ketones (test code = 35794-3) NEGATIVE NEGATIVE [facility] Pgxnnskgqzaa3221-66-56 14:45:00* Test Item Value Reference Range Interpretation Comments Urine Urobilinogen (test code = 34907-6) 0.2 0.2-1 [facility] Wqrbfyqcp1929-05-53 14:45:00* Test Item Value Reference Range Interpretation Comments Urine Bilirubin (test code = 1978-6) NEGATIVE NEGATIVE [facility] Uvtfr2978-95-54 14:45:00* Test Item Value Reference Range Interpretation Comments Urine Blood (test code = 44254-1) 2+ NEGATIVE H [facility] HospitalProthrombin Ujjo7119-36-86 12:53:00* Test Item Value Reference Range Interpretation Comments Prothrombin Time (test code = 5902-2) 13.8 11.9-14.5 [facility] HospitalProthromb Time International Ratio 2018-01-10 12:53:00* Test Item Value Reference Range Interpretation Comments Prothromb Time International Ratio (test code = 6301-6) 1.15 Oral Anticoagulant Therapy INR Values:1. Low Intensity Therapy 1.5 - 2.02 . Moderate Intensity Therapy 2.0 - 3.03. High Intensity Therapy(1) 2.5 - 3. 54. High Intensity Therapy(2) 3.0 - 4.05. Panic Value INR > 5.0 [facility]Act[facility] Partial Thromboplast Time 2018-01-10 12:53:00* Test Item Value Reference Range Interpretation Comments Activated Partial Thromboplast Time (test code = 06662-9) 20.2 23.8-35.5 L [facility] HospitalProthrombin Qtaf3039-17-50 12:53:00* Test Item Value Reference Range Interpretation Comments Prothrombin Time (test code = 5902-2) 13.8 11.9-14.5 [facility] HospitalProthromb Time International Ratio 2018-01-10 12:53:00* Test Item Value Reference Range Interpretation Comments Prothromb Time International Ratio (test code = 6301-6) 1.15 Oral Anticoagulant Therapy INR Values:1. Low Intensity Therapy 1.5 - 2.02 . Moderate Intensity Therapy 2.0 - 3.03. High Intensity Therapy(1) 2.5 - 3. 54. High Intensity Therapy(2) 3.0 - 4.05. Panic Value INR > 5.0 [facility]Act[facility] Partial Thromboplast Time 2018-01-10 12:53:00* Test Item Value Reference Range Interpretation Comments Activated Partial Thromboplast Time (test code = 48223-4) 20.2 23.8-35.5 L [facility] HospitalProthrombin Ovsn1258-41-52 12:53:00* Test Item Value Reference Range Interpretation Comments Prothrombin Time (test code = 5902-2) 13.8 11.9-14.5 [facility] HospitalProthromb Time International Ratio 2018-01-10 12:53:00* Test Item Value Reference Range Interpretation Comments Prothromb Time International Ratio (test code = 6301-6) 1.15 Oral Anticoagulant Therapy INR Values:1. Low Intensity Therapy 1.5 - 2.02 . Moderate Intensity Therapy 2.0 - 3.03. High Intensity Therapy(1) 2.5 - 3. 54. High Intensity Therapy(2) 3.0 - 4.05. Panic Value INR > 5.0 [facility]Act[facility] Partial Thromboplast Time 2018-01-10 12:53:00* Test Item Value Reference Range Interpretation Comments Activated Partial Thromboplast Time (test code = 96001-8) 20.2 23.8-35.5 L [facility] HospitalProthrombin Gdlw3198-11-77 12:53:00* Test Item Value Reference Range Interpretation Comments Prothrombin Time (test code = 5902-2) 13.8 11.9-14.5 [facility] HospitalProthromb Time International Ratio 2018-01-10 12:53:00* Test Item Value Reference Range Interpretation Comments Prothromb Time International Ratio (test code = 6301-6) 1.15 Oral Anticoagulant Therapy INR Values:1. Low Intensity Therapy 1.5 - 2.02 . Moderate Intensity Therapy 2.0 - 3.03. High Intensity Therapy(1) 2.5 - 3. 54. High Intensity Therapy(2) 3.0 - 4.05. Panic Value INR > 5.0 [facility]Act[facility] Partial Thromboplast Time 2018-01-10 12:53:00* Test Item Value Reference Range Interpretation Comments Activated Partial Thromboplast Time (test code = 67390-6) 20.2 23.8-35.5 L [facility] HospitalProthrombin Zuel7559-11-41 12:53:00* Test Item Value Reference Range Interpretation Comments Prothrombin Time (test code = 5902-2) 13.8 11.9-14.5 [facility] HospitalProthromb Time International Ratio 2018-01-10 12:53:00* Test Item Value Reference Range Interpretation Comments Prothromb Time International Ratio (test code = 6301-6) 1.15 Oral Anticoagulant Therapy INR Values:1. Low Intensity Therapy 1.5 - 2.02 . Moderate Intensity Therapy 2.0 - 3.03. High Intensity Therapy(1) 2.5 - 3. 54. High Intensity Therapy(2) 3.0 - 4.05. Panic Value INR > 5.0 [facility]Act[facility] Partial Thromboplast Time 2018-01-10 12:53:00* Test Item Value Reference Range Interpretation Comments Activated Partial Thromboplast Time (test code = 75251-3) 20.2 23.8-35.5 L [facility] HospitalMagnesium Kqzae8890-25-34 08:22:00* Test Item Value Reference Range Interpretation Comments Magnesium Level (test code = 99641-4) 1.2 1.3-2.1 [facility] Jrugh0887-93-03 07:42:00* Test Item Value Reference Range Interpretation Comments Sodium Level (test code = 2951-2) 132 136-145 L [facility] HospitalPotassium Jkuti4492-64-80 07:42:00* Test Item Value Reference Range Interpretation Comments Potassium Level (test code = 2823-3) 4.4 3.5-5.1 [facility] HospitalChloride Rwrmm2247-43-38 07:42:00* Test Item Value Reference Range Interpretation Comments Chloride Level (test code = 2075-0) 95 98-107 L [facility] HospitalCarbon Dioxide Swyyv1784-80-02 07:42:00* Test Item Value Reference Range Interpretation Comments Carbon Dioxide Level (test code = 2028-9) 30 22-29 H [facility] HospitalAnion Ikw6768-82-13 07:42:00* Test Item Value Reference Range Interpretation Comments Anion Gap (test code = 14474-1) 11.4 8-16 [facility] HospitalBlood Urea Aoqktfgw1328-85-53 07:42:00* Test Item Value Reference Range Interpretation Comments Blood Urea Nitrogen (test code = 3094-0) 8 7-26 [facility] HospitalCreatinine2018-03-21 07:42:00* Test Item Value Reference Range Interpretation Comments Creatinine (test code = 2160-0) 0.87 0.57-1.11 [facility] HospitalBUN/Creatinine Qrdvm3113-63-00 07:42:00* Test Item Value Reference Range Interpretation Comments BUN/Creatinine Ratio (test code = 3097-3) 9 6-25 [facility] HospitalEstimat Glomerular Filtration Rate 2017-12-04 07:42:00* Test Item Value Reference Range Interpretation Comments Estimat Glomerular Filtration Rate (test code = 17867-5) 60- >60 Ranges were taken from the National Kidney Disease Education Program and the [facility] [employer] literature.Reference ranges:60 or greater: Pxankh40-45 ( for 3 consecutive months): Chronic kidney disease 15 or less: Kidney failureFormerly [facility] HospitalGlucose Qhrrk6570-62-66 07:42:00* Test Item Value Reference Range Interpretation Comments Glucose Level (test code = ZTG2310) 104 74-118 [facility] HospitalCalcium Hmowt1628-78-17 07:42:00* Test Item Value Reference Range Interpretation Comments Calcium Level (test code = 97638-1) 9.4 8.4-10.2 [facility] HospitalTotal Qjephmvah6055-00-73 07:42:00* Test Item Value Reference Range Interpretation Comments Total Bilirubin (test code = 1975-2) 0.3 0.2-1.2 [facility] HospitalAspartate Amino Transf (AST/SGOT) 2017-12-04 07:42:00* Test Item Value Reference Range Interpretation Comments Aspartate Amino Transf (AST/SGOT) (test code = Aspartate Amino Transf (AST/SGOT)) 51 5-34 H [facility] HospitalAlanine Aminotransferase (ALT/SGPT) 2017-12-04 07:42:00* Test Item Value Reference Range Interpretation Comments Alanine Aminotransferase (ALT/SGPT) (test code = 1742-6) 99 0-55 H [facility] HospitalTotal Pnhzbah5099-26-55 07:42:00* Test Item Value Reference Range Interpretation Comments Total Protein (test code = 2885-2) 6.3 6.5-8.1 L [facility] HospitalAlbumin2018-03-21 07:42:00* Test Item Value Reference Range Interpretation Comments Albumin (test code = 1751-7) 3.1 3.5-5.0 L [facility] HospitalGlobulin2018-03-21 07:42:00* Test Item Value Reference Range Interpretation Comments Globulin (test code = 61093-5) 3.2 2.3-3.5 [facility] HospitalAlbumin/Globulin Qqjfz3940-73-52 07:42:00 * Test Item Value Reference Range Interpretation Comments Albumin/Globulin Ratio (test code = 1759-0) 1.0 0.8-2.0 [facility] HospitalAlkaline Iwdsxfirwiy3670-38-01 07:42:00* Test Item Value Reference Range Interpretation Comments Alkaline Phosphatase (test code = 6768-6) 144 40-150 [facility] HospitalWhite Blood Xshms3980-34-59 07:14:00* Test Item Value Reference Range Interpretation Comments White Blood Count (test code = 6690-2) 7.55 4.8-10.8 [facility] HospitalRed Blood Mbkdp6561-00-16 07:14:00* Test Item Value Reference Range Interpretation Comments Red Blood Count (test code = 789-8) 4.15 3.6-5.1 [facility] HospitalHemoglobin2018-03-21 07:14:00* Test Item Value Reference Range Interpretation Comments Hemoglobin (test code = 98691-0) 12.1 12.0-16.0 [facility] HospitalHematocrit2018-03-21 07:14:00* Test Item Value Reference Range Interpretation Comments Hematocrit (test code = 4544-3) 34.8 34.2-44.1 [facility] HospitalMean Corpuscular Ybcrty5058-71-42 07:14:00* Test Item Value Reference Range Interpretation Comments Mean Corpuscular Volume (test code = 787-2) 83.9 81-99 [facility] HospitalMean Corpuscular Nyqxezzsfr9717-96-44 07:14:00* Test Item Value Reference Range Interpretation Comments Mean Corpuscular Hemoglobin (test code = 785-6) 29.2 28-32 [facility] HospitalMean Corpuscular Hemoglobin Concent 2017-12-04 07:14:00* Test Item Value Reference Range Interpretation Comments Mean Corpuscular Hemoglobin Concent (test code = 786-4) 34.8 31-35 [facility] HospitalRed Cell Distribution Epbrk2287-44-99 07:14:00* Test Item Value Reference Range Interpretation Comments Red Cell Distribution Width (test code = 53854-4) 12.7 11.7 -14.4 [facility] HospitalPlatelet Hfdrz5996-30-73 07:14:00* Test Item Value Reference Range Interpretation Comments Platelet Count (test code = 777-3) 272 140-360 [facility] HospitalNeutrophils (%) (Auto)2017-12-04 07:14:00 * Test Item Value Reference Range Interpretation Comments Neutrophils (%) (Auto) (test code = 35538-3) 61.4 38.7-80.0 [facility] HospitalLymphocytes (%) (Auto)2017-12-04 07:14:00 * Test Item Value Reference Range Interpretation Comments Lymphocytes (%) (Auto) (test code = 736-9) 28.2 18.0-39.1 [facility] HospitalMonocytes (%) (Auto)2017-12-04 07:14:00* Test Item Value Reference Range Interpretation Comments Monocytes (%) (Auto) (test code = 5905-5) 7.9 4.4-11.3 [facility] HospitalEosinophils (%) (Auto)2017-12-04 07:14:00 * Test Item Value Reference Range Interpretation Comments Eosinophils (%) (Auto) (test code = 713-8) 1.5 0.0-6.0 [facility] HospitalBasophils (%) (Auto)2017-12-04 07:14:00* Test Item Value Reference Range Interpretation Comments Basophils (%) (Auto) (test code = 706-2) 0.3 0.0-1.0 [facility] HospitalIM GRANULOCYTES %2017-12-04 07:14:00* Test Item Value Reference Range Interpretation Comments IM GRANULOCYTES % (test code = IM GRANULOCYTES %) 0.7 0.0- 1.0 [facility] HospitalNeutrophils # (Auto)2017-12-04 07:14:00* Test Item Value Reference Range Interpretation Comments Neutrophils # (Auto) (test code = 751-8) 4.6 2.1-6.9 [facility] HospitalLymphocytes # (Auto)2017-12-04 07:14:00* Test Item Value Reference Range Interpretation Comments Lymphocytes # (Auto) (test code = 58863-2) 2.1 1.0-3.2 [facility] HospitalMonocytes # (Auto)2017-12-04 07:14:00* Test Item Value Reference Range Interpretation Comments Monocytes # (Auto) (test code = 742-7) 0.6 0.2-0.8 [facility] HospitalEosinophils # (Auto)2017-12-04 07:14:00* Test Item Value Reference Range Interpretation Comments Eosinophils # (Auto) (test code = 711-2) 0.1 0.0-0.4 [facility] HospitalBasophils # (Auto)2017-12-04 07:14:00* Test Item Value Reference Range Interpretation Comments Basophils # (Auto) (test code = 704-7) 0.0 0.0-0.1 [facility] HospitalAbsolute Immature Granulocyte (auto 2017-12-04 07:14:00* Test Item Value Reference Range Interpretation Comments Absolute Immature Granulocyte (auto (asia t code = Absolute Immature Granulocyte (auto) 0.05 0-0.1 [facility] HospitalClostridium Difficile Toxin A & B 2017-12-03 20:50:00* Test Item Value Reference Range Interpretation Comments Clostridium Difficile Toxin A & B (test code = 757584926) NEGATIVE NEGATIVE Testing on stool aspirate specimens is outside training administrator claims since specime n type not validated on this assay.[facility] Clostridium Difficile Toxin A & [id number] 20:50:00* Test Item Value Reference Range Interpretation Comments Clostridium Difficile Toxin A & B (test code = 780122580) NEGATIVE NEGATIVE Testing on stool aspirate specimens is outside training administrator claims since specime n type not validated on this assay.[facility] Clostridium Difficile Toxin A & [id number] 20:50:00* Test Item Value Reference Range Interpretation Comments Clostridium Difficile Toxin A & B (test code = 962288269) NEGATIVE NEGATIVE Testing on stool aspirate specimens is outside training administrator claims since specime n type not validated on this assay.[facility]ly [facility] Clostridium Difficile Toxin A & N6384-44-12 20:50:00* Test Item Value Reference Range Interpretation Comments Clostridium Difficile Toxin A & B (test code = 760003424) NEGATIVE NEGATIVE Testing on stool aspirate specimens is outside training administrator claims since specime n type not validated on this assay.[facility] Dtjhgfr9211-91-54 09:41:00* Test Item Value Reference Range Interpretation Comments Urine Culture (test code = 630-4) Organism: ESCHERICHIA COLI [facility] Sptetzw9832-35-25 09:41:00* Test Item Value Reference Range Interpretation Comments Urine Culture (test code = 630-4) Organism: ESCHERICHIA COLI [facility] Nkavuvq1517-60-51 09:41:00* Test Item Value Reference Range Interpretation Comments Urine Culture (test code = 630-4) Organism: ESCHERICHIA COLI [facility] Jnyzpil9186-22-10 09:41:00* Test Item Value Reference Range Interpretation Comments Urine Culture (test code = 630-4) Organism: ESCHERICHIA COLI [facility] Ixrsrh9397-06-84 13:23:00* Test Item Value Reference Range Interpretation Comments Creatine Kinase (test code = 2157-6) 37 29-168 [facility] Kinase DS4913-64-68 13:23:00* Test Item Value Reference Range Interpretation Comments Creatine Kinase MB (test code = 15569-2) 0.80 0-5.0 [facility] W6183-21-01 13:23:00* Test Item Value Reference Range Interpretation Comments Troponin I (test code = ECH9499) 0.012 0-0.300 [facility] RZN7939-53-90 12:54:00* Test Item Value Reference Range Interpretation Comments Urine WBC (test code = 5821-4) 6-10 0-5 H [facility] OBQ8688-51-22 12:54:00* Test Item Value Reference Range Interpretation Comments Urine RBC (test code = 20740-3) 6-10 0-5 H [facility] Oaieidec7998-28-54 12:54:00* Test Item Value Reference Range Interpretation Comments Urine Bacteria (test code = 54695-3) FEW NONE [facility] Epithelial Rncpm0932-30-32 12:54:00 * Test Item Value Reference Range Interpretation Comments Urine Epithelial Cells (test code = 03283-2) FEW NONE [facility] Umrjd9157-96-80 12:52:00* Test Item Value Reference Range Interpretation Comments Urine Color (test code = 5778-6) YELLOW YELLOW [facility] Qqstraa0351-43-41 12:52:00* Test Item Value Reference Range Interpretation Comments Urine Clarity (test code = 40750-2) HAZY CLEAR [facility] Specific Umsnkpz2919-87-18 12:52:00 * Test Item Value Reference Range Interpretation Comments Urine Specific Derwent (test code = 5811-5) 1.005 1.010-1.02 5 L [facility] fY2268-53-59 12:52:00* Test Item Value Reference Range Interpretation Comments Urine pH (test code = 90107-8) 7 5-7 [facility] Leukocyte Yvpeewnp3617-20-80 12:52:00* Test Item Value Reference Range Interpretation Comments Urine Leukocyte Esterase (test code = 5799-2) 2+ NEGATIVE H [facility] Jsupnjo0185-40-77 12:52:00* Test Item Value Reference Range Interpretation Comments Urine Nitrite (test code = 28808-9) NEGATIVE NEGATIVE [facility] Fmtswfb0374-49-70 12:52:00* Test Item Value Reference Range Interpretation Comments Urine Protein (test code = 5804-0) NEGATIVE NEGATIVE [facility] Glucose (UA)2017-12-01 12:52:00* Test Item Value Reference Range Interpretation Comments Urine Glucose (UA) (test code = 2349-9) NEGATIVE NEGATIVE [facility] Hfahdwb5940-00-66 12:52:00* Test Item Value Reference Range Interpretation Comments Urine Ketones (test code = 51359-7) NEGATIVE NEGATIVE [facility] Nuysamtymtag3168-02-40 12:52:00* Test Item Value Reference Range Interpretation Comments Urine Urobilinogen (test code = 85122-3) 0.2 0.2-1 [facility] Tqkefsnxd7089-65-51 12:52:00* Test Item Value Reference Range Interpretation Comments Urine Bilirubin (test code = 1978-6) NEGATIVE NEGATIVE [facility] Jrixr5973-12-37 12:52:00* Test Item Value Reference Range Interpretation Comments Urine Blood (test code = 75582-3) 1+ NEGATIVE H [facility] Partial Thromboplast Time 2017-12-01 12:48:00* Test Item Value Reference Range Interpretation Comments Activated Partial Thromboplast Time (test code = 63059-3) 32.3 23.8-35.5 [facility]th[facility]bin Psmh1109-36-53 12:47:00* Test Item Value Reference Range Interpretation Comments Prothrombin Time (test code = 5902-2) 13.5 11.9-14.5 [facility]th[facility] Time International Ratio 2017-12-01 12:47:00* Test Item Value Reference Range Interpretation Comments Prothromb Time International Ratio (test code = 6301-6) 1.11 Oral Anticoagulant Therapy INR Values:1. Low Intensity Therapy 1.5 - 2.02 . Moderate Intensity Therapy 2.0 - 3.03. High Intensity Therapy(1) 2.5 - 3. 54. High Intensity Therapy(2) 3.0 - 4.05. Panic Value INR > 5.0 [facility] Transitional Epithelial Cells 2017-05-10 10:21:00* Test Item Value Reference Range Interpretation Comments Urine Transitional Epithelial Cells (test code = 8249-5) RARE NONE H [facility] Renal Epithelial Qqrjk2643-84-92 10:21:00* Test Item Value Reference Range Interpretation Comments Urine Renal Epithelial Cells (test code = 98105-6) RARE NON E H [facility] Transitional Epithelial Cells 2017-05-10 10:21:00* Test Item Value Reference Range Interpretation Comments Urine Transitional Epithelial Cells (test code = 8249-5) [facility] NONE [facility]helial Htuqc8139-28-87 10:21:00* Test Item Value Reference Range Interpretation Comments Urine Renal Epithelial Cells (test code = 56302-7) RARE NON E H [facility] Transitional Epithelial Cells 2017-05-10 10:21:00* Test Item Value Reference Range Interpretation Comments Urine Transitional Epithelial Cells (test code = 8249-5) RARE NONE [facility] Epithelial Ljhjd8885-49-48 10:21:00* Test Item Value Reference Range Interpretation Comments Urine Renal Epithelial Cells (test code = 45676-0) RARE NON E [facility] [address] [facility] [address] [place] [address] Patient Name: MIRELLA FINLEY MR #: [id number] : 1930 Age/Sex: 87/F Req #: [id number] Adm Physician: Ordered by: ORLY SANTANA MD Report #: [id number] Location: ER Room/Bed: Procedure: [id number] DX/CHEST 2 VIEWS Exam Date: Exam Time: 1230 REPORT STATUS: Signed PROCEDURE: Frontal and lateral views of the chest. COMPARISON: 12/01/2017 INDICATIONS: NAUSEA/VOMITING FINDINGS: Lines/tubes: None. Lungs: The lungs are well inflated and clear. There is no evidence of pneumonia or pulmonary edema. Pleura: There is no pleural effusion or pn eumothorax. Heart and mediastinum: The heart and the mediastinum are norm al. Bones: No acute bony abnormality. Multilevel degenerative changes of the thoracic spine. IMPRESSION: 1. No acute cardiopulmonary dis ease. Dictated by: Dom De Leon M.D. on 01/10/2018 at 13:05 Elec tronically approved by: Dom De Leon M.D. on 01/10/2018 at 13:05 Dictated By: ODM DE LEON MD 1305 Transcribed By: MIRTHA on 01/10/18 1305 COPY TO: ORLY SANTANA MD ABDOMEN COMP INCL UPR or DECUB [place] [address] Patient Name: MIRELLA FINLEY MR #: [id number] : 1930 Age/Sex: 87/F Req #: [id number] Adm Physician: Ordered by: ORLY SANTANA MD Report #: [id number] Location: ER Room/Bed: Procedure: [id number] DX/ABDOMEN COMP INCL UPR or DEC UB Exam Date: 01/10/18 Exam Time: 1230 REPORT STATUS: Signed PROCEDURE: ABDOMEN COMP INCL UPR OR DECUB INDICATION: Na usea and vomiting COMPARISON: None. FINDINGS: 2 views of the chest ( AP supine and AP semierect). Nonobstructive bowel gas pattern. No suspic ious calcifications projected over the urinary tract. No free intraperitoneal air. Cholecystectomy clips. Bones and soft tissues are grossly unremarkable. CONCLUSION: Nonobstructive bowel gas pattern. No free intraperitone al air. Dictated by: Dom De Leon M.D. on 01/10/2018 at 13:08 Electronically approved by: Dom De Leon M.D. on 01/10/2018 at 13:08 Dictated By: DOM DE LEON MD 1308 Transcribed By: MIRTHA on 01/10/18 1308 COPY TO: ORLY SANTANA MD CHEST SINGLE (PORTABLE) [facility] [address] [place] [address] Patient Name: MIRELLA FINLEY MR #: [id number] : 1930 Age/Sex: 87/F Req #: [id number] Adm Physician: Ordered by: RM HARDEN SHRINKING MACHINE OPERATOR Report #: [id number] Location: ER Room/Bed: Procedure: [id number] DX/CHEST SINGLE (PORTABLE) E xam Date: 12/01/17 Exam Time: 1150 REPORT STATU S: Signed EXAMINATION: CHEST SINGLE (PORTABLE) INDICATION: Abdomina l pain. COMPARISON: 05/25/2017 FINDINGS: AP view TUBES and LINES: None. LUNGS: Slight rotation. Lungs are well infla kel. Lungs are clear. There is no evidence of pneumonia or pulmonary edema. PLEURA: No pleural effusion or pneumothorax. HEART AND MEDIASTINUM: The cardiomediastinal silhouette is unremarkable. BONES AND SOFT TISSU ES: No acute osseous lesion. Soft tissues are unremarkable. UPPER ABDOM EN: No free air under the diaphragm. IMPRESSION: No acute thoracic a bnormality. Signed by: Dr. Navin Mayer MD on 12/01/2017 12:10 PM Dictated By: NAVIN MAYER MD 1210 COPY TO: FORREST HARDEN NP CT ABDOMEN/PELVIS W [facility] [address] [address] Patient Name: MIRELLA FINLEY MR #: [id number] : 1930 Age/Sex: 87/F Req #: [id number] Adm Physician: Ordered by: RM HARDEN NP Report #: [id number] Location: ER Room/Bed: Procedure: [id number] CT/CT ABDOMEN/PELVIS W Exam Date: 12/01/17 Exam Time: 1340 REPORT STATUS: S igned EXAM: CT Abdomen and Pelvis WITH contrast INDICATION: COMPARISON: CT dated 05/02/2017 TECHNIQUE: Abdomen and pelvis were scanned utilizing a multidetector helical scanner from the lung base to the pubic symp hysis after administration of IV contrast. Coronal and sagittal reformations w ere obtained. Routine protocol was performed. Scan was performed when during p ortal venous phase. IV CONTRAST: 100 mL of Isovue-370 ORAL CON TRAST: Gastroview COMPLICATIONS: None RADIATION DOSE: Total DLP: 180.73 mGy*cm Estimated effective dose: (DLP x 0.015 x size factor) mSv CTDIvol has been reviewed. It is below the limits set by the Radiation Protocol Committee (RPC). FINDINGS: LINES and TUBES: Johnson catheter. LOWER THORAX: Unremarkable HEPATOBILIARY: No focal h epatic lesions. Mild biliary dilatation, likely due to postcholecystectomy res ervoir effects. GALLBLADDER: Surgically absent. SPLEEN: No splenomega ly. PANCREAS: No focal masses or ductal dilatation. ADRENALS: No ad renal nodules KIDNEYS/URETERS: Kidneys enhance symmetrically. No hydro nephrosis. No cystic or solid mass lesions. No stones. GI TRACT: Colonic diverticulosis with wall thickening and inflammation of sigmoid colon in left lower quadrant, representing diverticulitis. Inflamed segment of sigmoid colon abuts the uterine fundus. No evidence of bowel obstruction. Appendix is not visualized. PELVIC ORGANS/BLADDER: Bladder is decompressed by a Johnson cat heter in place. Uterus and adnexa are unremarkable on CT assessment. LYMP H NODES: No lymphadenopathy. VESSELS: Mild to moderate aortoiliac atheroscl erotic disease. PERITONEUM / RETROPERITONEUM: No free air or fluid. VIVIEN HILDA: Unremarkable. SOFT TISSUES: Unremarkable. IMPRESSION: 1. Colonic diverticulitis in left lower quadrant. No definite evidence of microperforation or abscess formation. The inflamed loop of colon abuts the u terine fundus. Signed by: Dr. 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 Heart: Normal c ardiac silhouette. Vascular: The pulmonary vasculature is within normal barrett its. Atherosclerotic calcifications of the aortic arch. Mediastinum: No mediastinal, hilar, or axillary mass or lymphadenopathy. Lungs: No parenchy mal mass. No focal consolidation. Pleura: No pleural effusion. No pneumo thorax. Bones: No acute osseous abnormality. Degenerative changes of the t horacic spine. Soft tissues: Normal. Impression: No acute radiog raphic abnormality. Signed by: Dr. Mercy Lazcano M.D. on 05/25/2017 1:00 PM Dictated By: MERCY LAZCANO MD 1300 COPY TO: LISA HDZ MD CHEST SINGLE (PORTABLE) [place] [address] Patient Name: MIRELLA FINLEY MR #: [id number] : 1930 Age/Sex: 86/F Req #: [id number] Adm Physician: Ordered by: TAWANNA HDZ MD Report #: [id number] Location: ER Room/Bed: Procedure: [id number] DX/CHEST SINGLE (PORTABLE) Exam Date: 05/10/17 Exam Time: 1010 REPORT STATUS: Signed PROCEDURE: CHEST SINGLE (PORTABLE) TECHNIQUE: Portable AP chest INDICATION: Weakness COMPARISON: None. FINDINGS: The lungs are s ymmetrically hyperinflated, but otherwise clear. No pleural effusions. Normal heart size. Index skeleton. CONCLUSION: Hyperinflation suspicious f or air trapping from COPD. Otherwise, no acute abnormality. Dic tated by: Sammie Goodson M.D. on 05/10/2017 at 10:35 Electronically approved by: Sammie Goodson M.D. on 05/10/2017 at 10:35 D ictated By: SAMMIE GOODSON MD 103 COPY TO: TAWANNA HDZ MD CT ABDOMEN/PELVIS WO [place] [address] Patient Name: MIRELLA FINLEY MR #: [id number] : 1930 Age/Sex: 86/F Req #: [id number] Adm Physician: Ordered by: ARIANA CABRERA MD Report #: [id number] Location: ER Room/Bed: Procedure: [id number] CT/CT ABDOMEN/PELVIS WO Exam D ate: 05/02/17 Exam Time: 1825 REPORT STATUS: Si gned EXAMINATION: CT of the abdomen and pelvis without contrast. TECHNI QUE: Spiral CT images of the abdomen and pelvis were performed from the lung b ases to the lesser trochanters. No intravenous contrast was given per physici an's request. Dilute Gastrografin was given as oral contrast. Coronal and sag ittal reformatted images were obtained. COMPARISON: None. CLINICAL HI STORY:Constipation, abdominal pain, left lower quadrant, vomiting DISC USSION: ABSENCE OF INTRAVENOUS CONTRAST DECREASES SENSITIVITY FOR DETECTION OF FOCAL LESIONS AND VASCULAR PATHOLOGY. ABDOMEN/PELVIS: LOWER THORAX: L ale bases are clear. HEPATOBILIARY: No focal hepatic lesions. No intra or extrahepatic biliary ductal dilation. GALLBLADDER: Cholecystectomy clips. SPLEEN: No splenomegaly. PANCREAS: No focal masses or ductal di latation. ADRENALS: No adrenal nodules. KIDNEYS/URETERS: No hydronephr osis, stones, or solid mass lesions. PELVIC ORGANS/BLADDER: Marked distenti on of the bladder, with the bladder dome above the umbilicus. No focal lesion or wall thickening. Uterus is atrophic. No adnexal masses. PERITONEUM/RET ROPERITONEUM: Questionable trace free fluid in the pelvic cul-de-sac (for exam ple series 2, image 66). LYMPH NODES: No intra-abdominal,retroperitoneal, p elvic or inguinal lymphadenopathy. VESSELS: Atherosclerotic calcification of the abdominal aorta and iliac vessels. GI TRACT: Scattered diverticula in the distal descending and sigmoid colon. There is an approximately 5 cm s egment of the mid to distal sigmoid colon, which shows mild surrounding fat st randing (for example series 2, images 48-51 and coronal image 51) with presenc e of a prominent diverticulum. No foci of extraluminal air or adjacent well-de fined fluid collections. This segment abuts the posterior aspect of the bladde r The rest of the bowel shows no dilation, wall thickening or obstruction. BONES AND SOFT TISSUES: No bony lytic lesions. Mild osteopenia. Soft tissues are grossly unremarkable. IMPRESSION: 1. Findings consistent with mid to distal sigmoid diverticulitis, in the appropriate clinical setting. No evide nce of perforation or adjacent abscess formation. 2. Marked distention of the bladder, with the bladder dome above the umbilicus, likely reflecting maritza dder outlet obstruction. 3. Questionable trace free fluid in the pelvic cul -de-sac, likely reactive from diverticulitis. Signed by: Dr. Artemio cox M.D. on 05/02/2017 7:38 PM Dictated By: ARTEMIO KELLY MD Electron ically Signed By: ARTEMIO KELLY MD on 05/02/171937 Transcribed By: MARY on 05/02/171937 COPY TO: ARIANA CABRERA MD
== END 2020-07-31 22:50 | disposition home or self-care (01) ==
LOC: ER 21:30
DX: Z46.6 Encounter for fitting and adjustment of urinary device (principal); R33.9 Retention of urine, unspecified; N39.0 Urinary tract infection, site not specified; E78.5 Hyperlipidemia, unspecified; K21.9 Gastro-esophageal reflux disease without esophagitis; E78.00 Pure hypercholesterolemia, unspecified
CPT/HCPCS: 36415; 51702; 80048; 81001; 85025; 87086; 87186; 99283; J0696; 51700

== ENCOUNTER 2020-09-10 17:05 | Emergency (ER) | payer MEDICARE ==
[~2020-09-10] VITALS: Ht 162.6 cm; Wt 51.7 kg
[2020-09-10 18:45] LABS: CLARITY,URINE HAZY (CLEAR); COLOR,URINE YELLOW (YELLOW); KETONES,URINE NEGATIVE (NEGATIVE); LEUKOCYTE ESTERASE ,URINE LARGE (NEGATIVE); NITRITE,URINE POSITIVE (NEGATIVE); PROTEIN,URINE DIPSTICK TRACE (NEGATIVE); URINE UROBILINOGEN 0.2 mg/dL (0.2 - 1)
[2020-09-10 18:58] LABS: BACTERIA,URINE MANY /HPF; EPITHELIAL CELLS,URINE FEW /LPF; RBC,URINE 0-5 /HPF (0-5); TRIPLE PHOSPHATE CRYSTAL,UR MANY (FEW)
[2020-09-10 19:53] VITALS: BP 161/60
== END 2020-09-10 20:03 | disposition home or self-care (01) ==
LOC: ER 17:14
DX: T83.018A Breakdown (mechanical) of other urinary catheter, initial encounter (principal); E78.5 Hyperlipidemia, unspecified; K21.9 Gastro-esophageal reflux disease without esophagitis; E78.00 Pure hypercholesterolemia, unspecified; H40.9 Unspecified glaucoma; Z87.19 Personal history of other diseases of the digestive system
CPT/HCPCS: 81001; 87086; 87186; 99283

== ENCOUNTER 2020-09-20 07:51 | Emergency (ER) | payer MEDICARE ==
[~2020-09-20] VITALS: Ht 162.6 cm; Wt 51.7 kg
== END 2020-09-20 08:39 | disposition home or self-care (01) ==
LOC: ER 08:03
DX: Z46.6 Encounter for fitting and adjustment of urinary device (principal); E78.5 Hyperlipidemia, unspecified; K21.9 Gastro-esophageal reflux disease without esophagitis; E78.00 Pure hypercholesterolemia, unspecified
CPT/HCPCS: 99283

== ENCOUNTER → 2020-09-28 | Outpatient (CLI) | payer MEDICARE ==
[~2020-09-28] MED LIST changes: +SODIUM CHLORIDE 0.9% 500ML 500 ML ONE
== END ==
LOC: CT 11:07
PROVIDERS: ATTEND Urology
DX: N31.9 Neuromuscular dysfunction of bladder, unspecified (principal); R31.0 Gross hematuria
CPT/HCPCS: 72194; J7040

== ENCOUNTER 2020-10-05 13:44 | Emergency (ER) | payer MEDICARE ==
[~2020-10-05] VITALS: Ht 162.6 cm; Wt 51.7 kg
[~2020-10-05 13:44] MED LIST changes: -SODIUM CHLORIDE 0.9% 500ML 500 ML ONE
[2020-10-05 14:38] LABS: CLARITY,URINE SL CLOUDY (CLEAR); COLOR,URINE AMBER (YELLOW); KETONES,URINE NEGATIVE (NEGATIVE); LEUKOCYTE ESTERASE ,URINE MODERATE (NEGATIVE); NITRITE,URINE POSITIVE (NEGATIVE); PROTEIN,URINE DIPSTICK NEGATIVE (NEGATIVE); URINE UROBILINOGEN 0.2 mg/dL (0.2 - 1)
[2020-10-05 14:53] LABS: BACTERIA,URINE MANY /HPF; EPITHELIAL CELLS,URINE FEW /LPF; WBC,URINE (MAN) >50 /HPF (0-5)
[2020-10-05] MEDS ORDERED: CEPHALEXIN500 MG PO (15:14)
[2020-10-05 15:40] VITALS: BP 149/60
== END 2020-10-05 15:45 | disposition home or self-care (01) ==
LOC: ER 14:21
DX: Z46.6 Encounter for fitting and adjustment of urinary device (principal); E78.5 Hyperlipidemia, unspecified; K21.9 Gastro-esophageal reflux disease without esophagitis; E78.00 Pure hypercholesterolemia, unspecified; N31.9 Neuromuscular dysfunction of bladder, unspecified
CPT/HCPCS: 51700; 81001; 87086; 87186; 99283

== ENCOUNTER 2020-11-27 21:55 | Emergency (ER) | payer MEDICARE ==
[~2020-11-27] VITALS: Ht 162.6 cm; Wt 51.7 kg
[~2020-11-27 21:55] MED LIST changes: +CEPHALEXIN500 MG PO
== END 2020-11-28 01:06 | disposition home or self-care (01) ==
LOC: ER 22:26
DX: Z46.6 Encounter for fitting and adjustment of urinary device (principal); T83.018A Breakdown (mechanical) of other urinary catheter, initial encounter; R33.9 Retention of urine, unspecified; E78.5 Hyperlipidemia, unspecified; K21.9 Gastro-esophageal reflux disease without esophagitis; E78.00 Pure hypercholesterolemia, unspecified
CPT/HCPCS: 51700; 87086; 87186; 99282

== ENCOUNTER 2021-01-01 17:00 | Emergency (ER) | payer MEDICARE, OTHER ==
[~2021-01-01] VITALS: Ht 162.6 cm; Wt 51.7 kg
[2021-01-01 18:09] VITALS: BP 134/82
== END 2021-01-01 18:00 | disposition home or self-care (01) ==
LOC: ER 17:14
DX: R33.9 Retention of urine, unspecified (principal); N31.9 Neuromuscular dysfunction of bladder, unspecified; E78.5 Hyperlipidemia, unspecified; K21.9 Gastro-esophageal reflux disease without esophagitis
CPT/HCPCS: 51700; 87086; 87186; 99283

== ENCOUNTER 2021-04-22 10:31 | Emergency (ER) | payer MEDICARE ==
[~2021-04-22] VITALS: Ht 162.6 cm; Wt 51.7 kg
== END 2021-04-22 12:20 | disposition home or self-care (01) ==
LOC: ER 10:45
DX: Z46.6 Encounter for fitting and adjustment of urinary device (principal); R33.9 Retention of urine, unspecified; E78.5 Hyperlipidemia, unspecified; K21.9 Gastro-esophageal reflux disease without esophagitis; N31.9 Neuromuscular dysfunction of bladder, unspecified; Z98.0 Intestinal bypass and anastomosis status
CPT/HCPCS: 99282